=== PATIENT | male | born 1970 | race American Indian/Alaskan Native ===

== ENCOUNTER 2016-12-31 10:10 | Emergency (ER) | payer MEDICARE ==
[2016-12-31 10:32] VITALS: BP 99/65
[2016-12-31 11:45] LABS: Basophils % (Auto) 0.9 % (0.0-1.8); Eosinophils % (Auto) 4.4 % (0.0-4.3); Hemoglobin 9.4 gm/dl (11.8-15.2); Mean Corpuscular HGB Conc 32 % (32-34); Mean Corpuscular Hemoglobin 33 pg (28-32); Mean Corpuscular Volume 103 fl (84-94); Platelet Count 133 K/mm3 (140-440); Red Blood Count 2.81 M/mm3 (3.65-5.03); Red Cell Distribution Width 18.5 % (13.2-15.2); White Blood Count 4.2 K/mm3 (4.5-11.0)
[2016-12-31 12:00] LABS: BUN/Creatinine Ratio 5.66; Calcium 8.5 mg/dL (8.4-10.2); Chloride 92.2 mmol/L (98-107)
--- NOTE | 2017-01-01 21:40 | ED Elopement Review ---
ED Pt Elopement review - Results review Lab results: Laboratory Tests 12/31/16 12/31/16 11:32 11:32 WBC 4.2 L RBC 2.81 L Hgb 9.4 L Hct 29.0 L MCV 103 H MCH 33 H MCHC 32 RDW 18.5 H Plt Count 133 L Lymph % (Auto) 21.2 [place] % (Auto) 11.4 H Eos % (Auto) 4.4 H Baso % (Auto) 0.9 Lymph # 0.9 L [place] # 0.5 Eos # 0.2 Baso # 0.0 Seg Neutrophils % 62.1 Seg Neutrophils # 2.6 Sodium 141 Potassium 5.0 Chloride 92.2 L Carbon Dioxide 25 Anion Gap 29 BUN 85 H Creatinine 15.0 H Estimated GFR 4 BUN/Creatinine Ratio 5.66 Glucose 92 Calcium 8.5 Troponin T 0.155 H* Triglycerides 54 Cholesterol 118 LDL Cholesterol Direct 50 HDL Cholesterol 58 Cholesterol/HDL Ratio 2.03 - Call Back decision Pt Call Back Decision: Call pt to return to ED JOSE MARTIN (CKD, with elevated troponin , a-fib)
== END 2016-12-31 13:17 | disposition left against medical advice (07) ==
LOC: ED 10:10
DX: Z51.81 Encounter for therapeutic drug level monitoring (principal); J44.9 Chronic obstructive pulmonary disease, unspecified; K21.9 Gastro-esophageal reflux disease without esophagitis; I10 Essential (primary) hypertension; Z99.2 Dependence on renal dialysis; Z88.5 Allergy status to narcotic agent; Z88.1 Allergy status to other antibiotic agents; Z88.8 Allergy status to other drugs, medicaments and biological substances; Z91.048 Other nonmedicinal substance allergy status; Z53.21 Procedure and treatment not carried out due to patient leaving prior to being seen by health care provider
CPT/HCPCS: 36415; 80048; 80061; 84484; 85025; 93005; 93010

== ENCOUNTER 2017-06-01 16:39 | Inpatient (IN) | payer MEDICARE ==
[2017-06-01 18:00] LABS: Basophils % (Auto) 0.7 % (0.0-1.8); Eosinophils % (Auto) 3.2 % (0.0-4.3); Hematocrit 20.7 % (35.5-45.6); Hemoglobin 6.7 gm/dl (11.8-15.2); Mean Corpuscular HGB Conc 32 % (32-34); Mean Corpuscular Hemoglobin 30 pg (28-32); Mean Corpuscular Volume 93 fl (84-94); Platelet Count 189 K/mm3 (140-440); Red Blood Count 2.23 M/mm3 (3.65-5.03); White Blood Count 3.6 K/mm3 (4.5-11.0)
[2017-06-01 18:10] LABS: Calcium 8.8 mg/dL (8.4-10.2); Chloride 89.5 mmol/L (98-107); Potassium 3.7 mmol/L (3.6-5.0)
[2017-06-01 18:50] LABS: Red Cell Distribution Width 20.6 % (13.2-15.2)
[2017-06-01] MEDS ORDERED: NACL 0.9% 500 ML 500 ML IV ONE (20:36)
[2017-06-01] MEDS ORDERED: ZOFRAN IV ONE (20:38)
[2017-06-01] MEDS ORDERED: DILAUDID IV ONE (20:38)
--- NOTE | 2017-06-01 21:05 | Emergency Department Report ---
- General Chief complaint: Weakness Stated complaint: SOB/KIDNEY PT Time Seen by Provider: 06/01/17 20:17 Source: patient, old records reviewed Mode of arrival: Ambulatory Limitations: No Limitations - History of Present Illness Initial comments: 47-year-old male with a past medical history end-stage renal disease on dialysis , hypertension, COPD, GERD, and chronic back pain presents to the hospital complaining of dizziness the months and black stool 2 weeks. Patient states that his doctors have been trending his hemoglobin and has been dropping. Patient complains of felt lightheaded and like his parents out with standing. Generalized weakness and fatigue reported. Patient complains of chronic lower back pain and reports a discectomy surgery 10 months ago and neck surgery 1 month ago. Patient performs home hemodialysis 3 times a week but not on any set days. Patient complaining of moderate to severe lower back pain and requesting pain medication. Typically takes Percocet 10 mg at home. Patient is currently on Eliquis with for atrial fibrillation. His dose was recently decreased from 5-2.5 mg about 1 month ago. Solid Waste Manager: Dr. Lorna Barber Previous medical record reviewed: Patient had a EGD performed here November 2013 significant for erosive antral gastritis, erosive duodenitis, and small hiatal hernia. Severity scale (0 -10): 7 - Related Data Home Medications Medication Instructions Recorded Confirmed Last Taken clonazePAM [Clonazepam] 1.5 tab PO BID 11/16/13 06/01/17 02/28/16 21:30 Albuterol Sulfate [Proair Hfa] 1 puff INHALATION PRN PRN 02/28/16 06/01/1702/27 09:30 Calcium Acetate [Phoslo] 7 tab PO TID 02/28/16 06/01/17 02/28/16 09:30 Oxycodone HCl/Acetaminophen 1 each PO Q4HR PRN 02/28/16 06/01/17 02/28/16 21:30 [Percocet 10/325 mg] Ambrisentan [Letairis] 10 mg PO DAILY 06/01/17 06/01/17 Unknown Amiodarone HCl [Amiodarone 100 MG 200 mg PO BID 06/01/17 06/01/17 Unknown TAB] Apixaban [Eliquis] 2.5 mg PO DAILY 06/01/17 06/01/17 Unknown Lubiprostone (Nf) [Amitiza Cap 24 mcg PO DAILY 06/01/17 06/01/17 Unknown (Nf)] Naloxegol Oxalate [Movantik] 25 mg PO DAILY 06/01/17 06/01/17 Unknown Tizanidine HCl [Zanaflex] 2 mg PO TID PRN 06/01/17 06/01/17 Unknown Allergies Allergy/AdvReac Type Severity Reaction Status Date / Time CARMEL Inhibitors Allergy Angioedema Verified 02/29/16 11:21 morphine Allergy Itching Verified 02/29/16 15:28 tetracycline [Tetracycline] Allergy Angioedema Verified 02/29/16 11:21 valsartan [From Diovan] Allergy Angioedema Verified 02/29/16 11:21 PLASTIC TAPE Allergy Rash Uncoded 02/29/16 11:21 ED Review of Systems ROS: Stated complaint: SOB/KIDNEY PT Other details as noted in HPI Comment: All other systems reviewed and negative Other: Constitutional: No fevers chills Eyes: No eye pain visual changes ENT: No ear pain or throat pain Neck: Denies pain Respiratory: Denies cough wheezing shortness of breath Cardiovascular: Denies chest pain, palpitations, syncope GI: Denies abdominal pain, nausea, vomiting, diarrhea Musculoskeletal: as per hpi Skin: Denies rash, lesions, erythema Neurologic: Denies headache, numbness Psychiatric: Denies suicidal ideation, hallucinations ED Past Medical Hx - Past Medical History Hx Hypertension: Yes Hx GERD: Yes Hx Renal Disease: Yes Hx Sickle Cell Disease: No Hx COPD: Yes Hx HIV: No Additional medical history: Patient on Dialysis - Surgical History Additional Surgical History: MRSA chest - surgery to remove infection. Fistula left arm 2011. Ankle surgery. Removal part of stomach for bleeding ulcers. Parathyroidectomy. Neck surgery/discotomy approximately Jun 2017. Back surgery /discotomy approximately Aug 2016 - Social History Smoking Status: Never Smoker Substance Use Type: None - Medications Home Medications: Home Medications Medication Instructions Recorded Confirmed Last Taken Type clonazePAM [Clonazepam] 1.5 tab PO BID 11/16/13 06/01/17 02/28/16 21:30 History Albuterol Sulfate [Proair Hfa] 1 puff INHALATION PRN PRN 02/28/16 06/01/1702/27 09:30 History Calcium Acetate [Phoslo] 7 tab PO TID 02/28/16 06/01/17 02/28/16 09:30 History Oxycodone HCl/Acetaminophen 1 each PO Q4HR PRN 02/28/16 06/01/17 02/28/16 21:30 History [Percocet 10/325 mg] Ambrisentan [Letairis] 10 mg PO DAILY 06/01/17 06/01/17 Unknown History Amiodarone HCl [Amiodarone 100 MG 200 mg PO BID 06/01/17 06/01/17 Unknown History TAB] Apixaban [Eliquis] 2.5 mg PO DAILY 06/01/17 06/01/17 Unknown History Lubiprostone (Nf) [Amitiza Cap 24 mcg PO DAILY 06/01/17 06/01/17 Unknown History (Nf)] Naloxegol Oxalate [Movantik] 25 mg PO DAILY 06/01/17 06/01/17 Unknown History Tizanidine HCl [Zanaflex] 2 mg PO TID PRN 06/01/17 06/01/17 Unknown History ED Physical Exam - General Limitations: No Limitations - Other Other exam information: General: No limitations, patient is alert in no acute distress Head exam: Atraumatic, normocephalic Eyes exam: Normal appearance, pupils equal reactive to light, extraocular movements intact ENT: Moist mucous membrane, normal oropharynx Neck exam: Normal inspection, full range of motion, no meningismus nontender Respiratory exam: Clear to auscultation bilateral, no wheezes, rales, crackles Cardiovascular: Irregular rhythm normal rate Abdomen: Soft, nondistended, and nontender, with normal bowel sounds, no rebound, or guarding Rectal: Guaiac positive brown stool Extremity: Full range of motion normal inspection no deformity Back: Normal Inspection, full range of motion, mild lower back tenderness Neurologic: Alert, oriented x3, cranial nerves intact, no motor or sensory deficit Psychiatric: normal affect, normal mood Skin: Warm, dry, intact ED Course Vital Signs 06/01/17 06/01/17 06/01/17 16:52 19:54 20:00 Temperature 98.3 F Pulse Rate 83 83 Respiratory 16 14 13 Rate Blood Pressure 109/67 Blood Pressure 103/60 [Right] O2 Sat by Pulse 100 95 Oximetry - Reevaluation(s) Reevaluation #1: 06/01/17 21:06 Medications order: Dilaudid 1 mg, Zofran 4 mg, 2 units PRBC. Coags pending - Consultations Consultation #1: 06/01/17 21:00 Consult Nephrology: Dr Hodges will manage dialysis Consult GI: christopher Beckford/graciela Cooley now, prep for egd/colonoscopy tomorrow. Plan to scope on Saturday the ED Medical Decision Making - Lab Data Result diagrams: 06/01/17 17:26 06/01/17 17:26 Lab Results 06/01/17 06/01/17 06/01/17 Range/Units 17:25 17:26 17:26 WBC 3.6 L (4.5-11.0) K/mm3 RBC 2.23 L (3.65-5.03) M/mm3 Hgb 6.7 L (11.8-15.2) gm/dl Hct 20.7 L (35.5-45.6) % MCV 93 (84-94) fl MCH 30 (28-32) pg MCHC 32 (32-34) % RDW 20.6 H (13.2-15.2) % Plt Count 189 (140-440) K/mm3 Lymph % (Auto) 11.7 L (13.4-35.0) % [place] % (Auto) 10.0 H (0.0-7.3) % Eos % (Auto) 3.2 (0.0-4.3) % Baso % (Auto) 0.7 (0.0-1.8) % Lymph # 0.4 L (1.2-5.4) K/mm3 [place] # 0.4 (0.0-0.8) K/mm3 Eos # 0.1 (0.0-0.4) K/mm3 Baso # 0.0 (0.0-0.1) K/mm3 Seg Neutrophils % 74.4 H (40.0-70.0) % Seg Neutrophils # 2.7 (1.8-7.7) K/mm3 Sodium 139 (137-145) mmol/L Potassium 3.7 (3.6-5.0) mmol/L Chloride 89.5 L (98-107) mmol/L Carbon Dioxide 29 (22-30) mmol/L Anion Gap 24 mmol/L BUN 54 H (9-20) mg/dL Creatinine 10.8 H (0.8-1.5) mg/dL Estimated GFR 6 ml/min BUN/Creatinine Ratio 5.00 % Glucose 105 H (75-100) mg/dL Calcium 8.8 (8.4-10.2) mg/dL Troponin T 0.233 H* (0.00-0.029) ng/mL Triglycerides 59 (2-149) mg/dL Cholesterol 115 (50-199) mg/dL LDL Cholesterol Direct 40 L (50-130) mg/dL HDL Cholesterol 64 H (40-59) mg/dL Cholesterol/HDL Ratio 1.79 % Blood Type O POSITIVE Antibody Screen TNR GAMA Antibody Screen Negative Crossmatch See Detail 06/01/17 Range/Units 18:53 WBC (4.5-11.0) K/mm3 RBC (3.65-5.03) M/mm3 Hgb (11.8-15.2) gm/dl Hct (35.5-45.6) % MCV (84-94) fl MCH (28-32) pg MCHC (32-34) % RDW (13.2-15.2) % Plt Count (140-440) K/mm3 Lymph % (Auto) (13.4-35.0) % [place] % (Auto) (0.0-7.3) % Eos % (Auto) (0.0-4.3) % Baso % (Auto) (0.0-1.8) % Lymph # (1.2-5.4) K/mm3 [place] # (0.0-0.8) K/mm3 Eos # (0.0-0.4) K/mm3 Baso # (0.0-0.1) K/mm3 Seg Neutrophils % (40.0-70.0) % Seg Neutrophils # (1.8-7.7) K/mm3 Sodium (137-145) mmol/L Potassium (3.6-5.0) mmol/L Chloride (98-107) mmol/L Carbon Dioxide (22-30) mmol/L Anion Gap mmol/L BUN (9-20) mg/dL Creatinine (0.8-1.5) mg/dL Estimated GFR ml/min BUN/Creatinine Ratio % Glucose (75-100) mg/dL Calcium (8.4-10.2) mg/dL Troponin T 0.227 H* (0.00-0.029) ng/mL Triglycerides (2-149) mg/dL Cholesterol (50-199) mg/dL LDL Cholesterol Direct (50-130) mg/dL HDL Cholesterol (40-59) mg/dL Cholesterol/HDL Ratio % Blood Type Antibody Screen GAMA Antibody Screen Crossmatch - EKG Data -: EKG Interpreted by Me (atrial fibrillation rate 81 low voltage QRS septal infarct) - EKG Data When compared to previous EKG there are: no significant change (compared 2016) - Medical Decision Making Patient's troponin is slightly elevated but fairly unchanged on repeat blood draw. Elevation likely secondary to chronic renal and poor renal clearance. Nephrology and GI have been consult. Blood initiated. - Differential Diagnosis PUD, diverticulosis, anemia in renal disease, cancer, coagulopathy Critical Care Time: No Critical care attestation.: If time is entered above; I have spent that time in minutes in the direct care of this critically ill patient, excluding procedure time. ED Disposition Clinical Impression: Symptomatic anemia, ESRD on hemodialysis, Guaiac positive stools, Chronic back pain, Atrial fibrillation, Anticoagulant long-term use Disposition: OP ADMIT IP TO THIS HOSP Is pt being admited?: Yes Condition: Stable Time of Disposition: 21:00 (Dr Webb/hosp)
[2017-06-01 21:15] LABS: INR 1.12 (0.87-1.13)
[2017-06-01 21:16] LABS: Partial Thromboplastin Time 34.8 Sec. (24.2-36.6)
--- NOTE | 2017-06-01 22:17 | History and Physical Report ---
History of Present Illness Date of examination: 06/01/17 History of present illness: 47-year-old man with a history of end-stage renal disease on dialysis, Pulmonary arterial hypertension, A. fib comes emergency room with complaints of lethargy 1 month. Patient states that his baseline hemoglobin is 11.5 and over the last 1 month it has been steadily decreasing. He did lab work and this morning the results showed his hemoglobin was 8.3. Also complaining of dark stool 1 month, shortness breath, dyspnea and exertion denies any NSAIDs Past surgical history: End-stage renal disease on dialysis, pulmonary arterial hypertension, atrial fibrillation PAST SURGICAL HISTORY: Neck and back surgery, parathyroidectomy, ankle surgery SOCIAL HISTORY: Denies alcohol, tobacco, drugs FAMILY HISTORY: Hypertension Medications and Allergies Allergies Allergy/AdvReac Type Severity Reaction Status Date / Time CARMEL Inhibitors Allergy Angioedema Verified 02/29/16 11:21 morphine Allergy Itching Verified 02/29/16 15:28 tetracycline [Tetracycline] Allergy Angioedema Verified 02/29/16 11:21 valsartan [From Diovan] Allergy Angioedema Verified 02/29/16 11:21 PLASTIC TAPE Allergy Rash Uncoded 02/29/16 11:21 Home Medications Medication Instructions Recorded Confirmed Last Taken Type clonazePAM [Clonazepam] 1.5 tab PO BID 11/16/13 06/02/17 06/01/17 09:00 History Albuterol Sulfate [Proair Hfa] 1 puff INHALATION PRN PRN 02/28/16 06/02/1706/01 09:00 History 1 puff Calcium Acetate [Phoslo] 7 tab PO TID 02/28/16 06/02/17 06/01/17 09:00 History 667 mg Oxycodone HCl/Acetaminophen 1 each PO Q4HR PRN 02/28/16 06/02/17 06/01/17 09:00 History [Percocet 10/325 mg] 1 tab Ambrisentan [Letairis] 10 mg PO DAILY 06/01/17 06/02/17 06/01/17 09:00 History 10 mg Amiodarone HCl [Amiodarone 100 MG 200 mg PO BID 06/01/17 06/02/17 06/01/17 09: 00 History TAB] 200 mg Apixaban [Eliquis] 2.5 mg PO DAILY 06/01/17 06/02/17 06/01/17 09:00 History 2.5 Lubiprostone (Nf) [Amitiza Cap 24 mcg PO DAILY 06/01/17 06/02/17 06/01/17 09:00 History (Nf)] 24 mcg Naloxegol Oxalate [Movantik] 25 mg PO DAILY 06/01/17 06/02/17 06/01/17 09:00 History 12.5 Tizanidine HCl [Zanaflex] 2 mg PO TID PRN 06/01/17 06/02/17 06/01/17 09:00 History 2 mg Exam - Physical Exam Narrative exam: Gen. appearance: Patient lying in bed, no apparent distress HEENT: Normocephalic, atraumatic, pupils equally round and reactive to light, extraocular movement intact, and no sclericterus,. No JVD or thyromegaly or nodule,neck supple, no carotid bruit ,mucous membranes moist, no exudate or erythema Heart: S1, S2, regular rate and rhythm Lungs: Clear to auscultation bilaterally, breathing comfortable Abdomen: Positive bowel sounds, tender left lower quadrant, nondistended, no organomegaly Extremity: No edema, cyanosis, clubbing Skin: No rash, nodules, warm, dry Neuro: Oriented 3, cranial nerves II-12 intact, speech is fluent, motor and sensory intact - Constitutional Vitals: Temp Pulse Resp BP Pulse Ox 98.6 F 77 13 105/68 96 06/01/17 22:15 06/01/17 22:15 06/01/17 22:15 06/01/17 22:15 06/01/17 22:15 Results - Labs CBC & Chem 7: 06/02/17 04:33 06/02/17 04:33 Labs: Abnormal lab results 06/01/17 06/01/17 06/01/17 Range/Units 17:25 17:26 17:26 WBC 3.6 L (4.5-11.0) K/mm3 RBC 2.23 L (3.65-5.03) M/mm3 Hgb 6.7 L (11.8-15.2) gm/dl Hct 20.7 L (35.5-45.6) % RDW 20.6 H (13.2-15.2) % Lymph % (Auto) 11.7 L (13.4-35.0) % [place] % (Auto) 10.0 H (0.0-7.3) % Lymph # 0.4 L (1.2-5.4) K/mm3 Seg Neutrophils % 74.4 H (40.0-70.0) % PT (12.2-14.9) Sec. Chloride 89.5 L (98-107) mmol/L BUN 54 H (9-20) mg/dL Creatinine 10.8 H (0.8-1.5) mg/dL Glucose 105 H (75-100) mg/dL Troponin T 0.233 H* (0.00-0.029) ng/mL LDL Cholesterol Direct 40 L (50-130) mg/dL HDL Cholesterol 64 H (40-59) mg/dL Crossmatch See Detail 06/01/17 06/01/17 Range/Units 18:53 20:47 WBC (4.5-11.0) K/mm3 RBC (3.65-5.03) M/mm3 Hgb (11.8-15.2) gm/dl Hct (35.5-45.6) % RDW (13.2-15.2) % Lymph % (Auto) (13.4-35.0) % [place] % (Auto) (0.0-7.3) % Lymph # (1.2-5.4) K/mm3 Seg Neutrophils % (40.0-70.0) % PT 15.0 H (12.2-14.9) Sec. Chloride (98-107) mmol/L BUN (9-20) mg/dL Creatinine (0.8-1.5) mg/dL Glucose (75-100) mg/dL Troponin T 0.227 H* (0.00-0.029) ng/mL LDL Cholesterol Direct (50-130) mg/dL HDL Cholesterol (40-59) mg/dL Crossmatch - Imaging and Cardiology EKG: image reviewed Assessment and Plan Assessment GI bleed, rule out gastric ulcer versus anticoagulation versus other Blood loss anemia Abdominal pain History of fibrillation on anticoagulation End-stage renal disease on dialysis Plan Admit to medicine Start Protonix, consult GI, transfuse packed red blood cells, hold eliquis Obtain CAT scan of the abdomen and pelvis Consult renal for dialysis Continue appropriate outpatient medication, start DVT prophylaxis Addendum CAT scan abdomen and pelvis shows inflammation in the sigmoid colon Start IV Levaquin and Flagyl, IV dilaudid DVT prophylaxis with SCD
[2017-06-01] MEDS ORDERED: TYLENOL PO PRN (22:49)
--- NOTE | 2017-06-01 22:55 | Cat Scan Report ---
FINAL REPORT EXAM: CT ABDOMEN PELVIS WO CON HISTORY: abd pain/ black stool TECHNIQUE: CT images obtained through the Abdomen and Pelvis without contrast. Transaxial,coronal and sagittal reformats are provided. PRIORS: None. FINDINGS: Imaged intrathoracic contents are remarkable for coronary artery disease and ground-glass mosaic attenuation in the lower lungs. Polycystic kidney disease. No hydroureteronephrosis. No stones are seen within the urinary bladder. Partially imaged penile device. Cholelithiasis without pericholecystic inflammatory findings. The liver, pancreas, spleen, and adrenal glands demonstrate an unremarkable noncontrast appearance. Hollow enteric organs are normal in course and caliber. Suggested mild wall thickening of the sigmoid colon. Trace free fluid in the pelvis. Appendix is within normal limits. No intra-abdominal free air/fluid or lymphadenopathy. Aorta is normal in course and caliber with densely scattered atherosclerosis. Superficial soft tissues are unremarkable. No acute or aggressive appearing skeletal findings. IMPRESSION: Suggested mild sigmoid colonic wall thickening may be infectious, inflammatory or neoplastic in etiology. Gastroenterology follow-up is suggested. Cholelithiasis without pericholecystic inflammatory findings. Polycystic kidney disease. Consider routine screening CT head angiogram for associated aneurysm if not previously performed. Coronary and extensive peripheral arterial disease. Mosaic attenuation of the lower lungs may be secondary to subsegmental atelectasis, asthma/small airways disease or hypersensitivity pneumonitis.
[2017-06-01] MEDS: FLAGYL PO SCH (23:07)
[2017-06-02] MEDS: ZOFRAN IV PRN ×2 (05:07→12:47)
[2017-06-02 05:31] LABS: Basophils % (Auto) 0.7 % (0.0-1.8); Eosinophils % (Auto) 2.5 % (0.0-4.3); Hematocrit 24.1 % (35.5-45.6); Mean Corpuscular HGB Conc 33 % (32-34); Mean Corpuscular Hemoglobin 30 pg (28-32); Mean Corpuscular Volume 91 fl (84-94); Platelet Count 181 K/mm3 (140-440); Red Blood Count 2.65 M/mm3 (3.65-5.03); Red Cell Distribution Width 18.8 % (13.2-15.2); White Blood Count 3.9 K/mm3 (4.5-11.0)
[2017-06-02 05:46] LABS: BUN/Creatinine Ratio 5.04; Potassium 3.6 mmol/L (3.6-5.0)
[2017-06-02 05:48] LABS: Creatine Kinase MB 3.3 ng/mL (0.0-4.0)
[2017-06-02] MEDS: FLAGYL PO SCH ×3 (06:54→22:31)
--- NOTE | 2017-06-02 07:19 | Consultation ---
History of Present Illness - Reason for Consult Consult date: 06/02/17 end stage renal disease - History of Present Illness Patient is a 47-year-old AAM with history significant for ESRD on home hemodialysis followed by , Pulmonary arterial hypertension and A. fib came to the ER with complaints of weakness for the past 3 weeks. Patient states that his baseline hemoglobin is around 11.5 and over the past few weeks it has been steadily decreasing. Patient came to the hospital since the symptoms have been progressive. Associated symptoms include orthostatic dizziness, fatigue and dark stool. Patient was last dialyzed yesterday. Past History Past Medical History: anemia, other (A.fib, Pulmonary Hypertension) Medications and Allergies Allergies Allergy/AdvReac Type Severity Reaction Status Date / Time CARMEL Inhibitors Allergy Angioedema Verified 02/29/16 11:21 morphine Allergy Itching Verified 02/29/16 15:28 tetracycline [Tetracycline] Allergy Angioedema Verified 02/29/16 11:21 valsartan [From Diovan] Allergy Angioedema Verified 02/29/16 11:21 PLASTIC TAPE Allergy Rash Uncoded 02/29/16 11:21 Home Medications Medication Instructions Recorded Confirmed Last Taken Type clonazePAM [Clonazepam] 1.5 tab PO BID 11/16/13 06/02/17 06/01/17 09:00 History Albuterol Sulfate [Proair Hfa] 1 puff INHALATION PRN PRN 02/28/16 06/02/1706/01 09:00 History 1 puff Calcium Acetate [Phoslo] 7 tab PO TID 02/28/16 06/02/17 06/01/17 09:00 History 667 mg Oxycodone HCl/Acetaminophen 1 each PO Q4HR PRN 02/28/16 06/02/17 06/01/17 09:00 History [Percocet 10/325 mg] 1 tab Ambrisentan [Letairis] 10 mg PO DAILY 06/01/17 06/02/17 06/01/17 09:00 History 10 mg Amiodarone HCl [Amiodarone 100 MG 200 mg PO BID 06/01/17 06/02/17 06/01/17 09: 00 History TAB] 200 mg Apixaban [Eliquis] 2.5 mg PO DAILY 06/01/17 06/02/17 06/01/17 09:00 History 2.5 Lubiprostone (Nf) [Amitiza Cap 24 mcg PO DAILY 06/01/17 06/02/17 06/01/17 09:00 History (Nf)] 24 mcg Naloxegol Oxalate [Movantik] 25 mg PO DAILY 06/01/17 06/02/17 06/01/17 09:00 History 12.5 Tizanidine HCl [Zanaflex] 2 mg PO TID PRN 06/01/17 06/02/17 06/01/17 09:00 History 2 mg Active Meds: Active Medications Acetaminophen (Tylenol) 650 mg PO Q4H PRN PRN Reason: Pain MILD(1-3)/Fever >100.5/KNAPP Last Admin: 06/02/17 06:58 Dose: 650 mg Levofloxacin/Dextrose (Levaquin 500mg/100ml) 500 mg in 100 mls @ 100 mls/hr IV ONCE ONE PRN Reason: Protocol Stop: 06/02/17 10:59 Levofloxacin/Dextrose (Levaquin 250mg/50ml) 250 mg in 50 mls @ 50 mls/hr IV Q48HR [facility] PRN Reason: Protocol Metronidazole (Flagyl) 500 mg PO Q8HR [facility] Last Admin: 06/02/17 06:54 Dose: 500 mg Ondansetron HCl (Zofran) 4 mg IV Q8H PRN PRN Reason: N/V unrelieved by Linda Last Admin: 06/02/17 05:07 Dose: 4 mg Review of Systems Constitutional: fatigue, weakness, malaise, lethargy, chronic pain, no weight loss, no weight gain, no fever, no chills, no poor appetite Ears, nose, mouth and throat: no sinus pain, no epistaxis Cardiovascular: lightheadedness, shortness of breath, dyspnea on exertion, decreased exercise tolerance, no chest pain, no orthopnea, no edema, no syncope Respiratory: shortness of breath, dyspnea on exertion, no cough, no hemoptysis, no pain on inspiration Gastrointestinal: melena, no abdominal pain, no nausea, no vomiting, no diarrhea , no BRBPR Genitourinary Male: no dysuria, no hematuria, no flank pain Rectal: no bleeding Musculoskeletal: neck pain, low back pain Integumentary: no rash, no wounds Neurological: weakness, no paralysis, no change in speech, no change in mentation, no confusion, no paralysis Psychiatric: no disorientation Endocrine: no weight change Hematologic/Lymphatic: no lymphedema Exam - Vital Signs Vital signs: Vital Signs Temp Pulse Resp BP Pulse Ox 98.3 F 83 16 109/67 100 06/01/17 16:52 06/01/17 16:52 06/01/17 16:52 06/01/17 16:52 06/01/17 16:52 - General Appearance General appearance: well-developed, well-nourished, appears stated age, other ( no distress) EENT: ATNC, PERRL, mucous membranes moist, hearing intact, vision intact Neck: Present: neck supple Respiratory: Clear to Ascultation Heart: irregular, S1S2, no murmurs Gastrointestinal: Present: normoactive bowel sounds. Absent: tenderness Integumentary: no rash Neurologic: no focal deficit, no asterixis, alert and oriented x3, CN 3-12 intact Musculoskeletal: Present: other (no edema, left arm AVF) Psychiatric: mood/affect appropriate, cooperative Results - Lab Results 06/02/17 04:33 06/02/17 04:33 Most recent lab results Calcium 8.0 mg/dL (8.4-10.2) L 06/02/17 04:33 Assessment and Plan - Patient Problems (1) ESRD on hemodialysis Current Visit: Yes Status: Chronic Plan to address problem: Patient was last dialyzed yesterday. Resume hemodialysis tomorrow. (2) Symptomatic anemia Current Visit: Yes Status: Acute Plan to address problem: S/p PRBC, H / H is better. Epogen on dialysis days. (3) Atrial fibrillation Current Visit: Yes Status: Chronic Qualifiers: Atrial fibrillation type: A (4) Guaiac positive stools Current Visit: Yes Status: Acute Plan to address problem: GI consulted. (5) Chronic back pain Current Visit: Yes Status: Chronic Qualifiers: Back pain location: B Back pain laterality: B Sciatica presence: S Sciatica laterality: S
[2017-06-02] MEDS ORDERED: NACL 0.9% 100 ML IV PRN (08:30)
[2017-06-02] MEDS ORDERED: LEVAQUIN 750MG/150ML 750 MG/150 ML BAG IV SCH (10:00)
[2017-06-02] MEDS ORDERED: LEVAQUIN 500MG/100ML 500 MG/100 ML BAG IV ONE (10:00)
[2017-06-02] MEDS ORDERED: NON-FORMULARY (Oxycodone Hcl/Acetaminophen [Percocet 10/325 Mg] 1 EACH) PO PRN (11:09)
--- NOTE | 2017-06-02 11:15 | Progress Note ---
Assessment and Plan Assessment and plan: 47-year-old man with a history of end-stage renal disease on dialysis, Pulmonary arterial hypertension, A. fib on eliquis, last took it on 06/01 comes emergency room with complaints of lethargy 1 month. Patient states that his baseline hemoglobin is 11.5 and over the last 1 month it has been steadily decreasing. he is having melena on and off, c/o weakness and easy fatiguability , he does have abdominal pain but he states that that is chronic and not acute. Acute GI bleed, Continue PPI GI input appreciated, patient's plan for EGD/colonoscopy tomorrow, hold eliquis Acute blood loss anemia Has received transfusion appropriate rise in hemoglobin ? sigmoid colitis He has mild thickening of the sigmoid colon, both clinically the picture does not fit with infectious etiology, Continue empiric antibiotics for now, colonoscopy should provide more information Atrial fibrillation Rate controlled at the time, continue his cardiac meds, hold eliquis cc acute blood loss End-stage renal disease Hemodialysis per nephrology Non-STEMI type II Upon reviewing of his labs, his troponin is chronically elevated, therefore most likely non-STEMI type II, cardiology consults placed for further evaluation Denies chest pain Given his anemia and this is most likely demand ischemia Blood loss anemia Abdominal pain History of fibrillation on anticoagulation End-stage renal disease on dialysis DVT prophylaxis SCDs History Interval history: denies abdominal pain, weakness is improved today Hospitalist Physical - Physical exam Narrative exam: General: Patient appears well in no distress HEENT: MMM, EOMI cardiac: S1-S2 heard lungs: clear to auscultation, abdomen: soft, nontender, nondistended bowel sounds positive extremities: no edema clubbing or cyanosis Skin: no rash or lesion Neuro: no focal deficit Psych: appropriate behavior and mood, cognition intact - Constitutional Vitals: Temp Pulse Resp BP Pulse Ox 99 F 78 18 108/62 98 06/02/17 08:00 06/02/17 08:00 06/02/17 08:00 06/02/17 08:00 06/02/17 08:00 Results - Labs CBC & Chem 7: 06/02/17 04:33 06/02/17 04:33 Labs: Laboratory Last Values WBC 3.9 K/mm3 (4.5-11.0) L 06/02/17 04:33 RBC 2.65 M/mm3 (3.65-5.03) L 06/02/17 04:33 Hgb 8.0 gm/dl (11.8-15.2) L 06/02/17 04:33 Hct 24.1 % (35.5-45.6) L 06/02/17 04:33 MCV 91 fl (84-94) 06/02/17 04:33 MCH 30 pg (28-32) 06/02/17 04:33 MCHC 33 % (32-34) 06/02/17 04:33 RDW 18.8 % (13.2-15.2) H 06/02/17 04:33 Plt Count 181 K/mm3 (140-440) 06/02/17 04:33 Lymph % (Auto) 14.8 % (13.4-35.0) 06/02/17 04:33 [place] % (Auto) 9.5 % (0.0-7.3) H 06/02/17 04:33 Eos % (Auto) 2.5 % (0.0-4.3) 06/02/17 04:33 Baso % (Auto) 0.7 % (0.0-1.8) 06/02/17 04:33 Lymph # 0.6 K/mm3 (1.2-5.4) L 06/02/17 04:33 [place] # 0.4 K/mm3 (0.0-0.8) 06/02/17 04:33 Eos # 0.1 K/mm3 (0.0-0.4) 06/02/17 04:33 Baso # 0.0 K/mm3 (0.0-0.1) 06/02/17 04:33 Seg Neutrophils % 72.5 % (40.0-70.0) H 06/02/17 04:33 Seg Neutrophils # 2.9 K/mm3 (1.8-7.7) 06/02/17 04:33 PT 15.0 Sec. (12.2-14.9) H 06/01/17 20:47 INR 1.12 (0.87-1.13) 06/01/17 20:47 APTT 34.8 Sec. (24.2-36.6) 06/01/17 20:47 Sodium 133 mmol/L (137-145) L 06/02/17 04:33 Potassium 3.6 mmol/L (3.6-5.0) 06/02/17 04:33 Chloride 97.0 mmol/L (98-107) L 06/02/17 04:33 Carbon Dioxide 28 mmol/L (22-30) 06/02/17 04:33 Anion Gap 12 mmol/L 06/02/17 04:33 BUN 60 mg/dL (9-20) H 06/02/17 04:33 Creatinine 11.9 mg/dL (0.8-1.5) H 06/02/17 04:33 Estimated GFR 6 ml/min 06/02/17 04:33 BUN/Creatinine Ratio 5.04 % 06/02/17 04:33 Glucose 98 mg/dL (75-100) 06/02/17 04:33 Calcium 8.0 mg/dL (8.4-10.2) L 06/02/17 04:33 Total Creatine Kinase 262 units/L (55-170) H 06/02/17 04:33 CK-MB (CK-2) 3.3 ng/mL (0.0-4.0) 06/02/17 04:33 CK-MB (CK-2) Rel Index 1.2 (0-4) 06/02/17 04:33 Troponin T 0.214 ng/mL (0.00-0.029) H* 06/02/17 04:33 Triglycerides 59 mg/dL (2-149) 06/01/17 17:26 Cholesterol 115 mg/dL (50-199) 06/01/17 17:26 LDL Cholesterol Direct 40 mg/dL (50-130) L 06/01/17 17:26 HDL Cholesterol 64 mg/dL (40-59) H 06/01/17 17:26 Cholesterol/HDL Ratio 1.79 % 06/01/17 17:26 Blood Type O POSITIVE 06/01/17 17:25 Antibody Screen TNR 06/01/17 17:25 GAMA Antibody Screen Negative 06/01/17 17:25 Crossmatch See Detail 06/01/17 17:25
[2017-06-02] MEDS ORDERED: ZANAFLEX PO PRN (11:38)
[2017-06-02] MEDS: CORDARONE PO SCH ×2 (12:03→22:31)
--- NOTE | 2017-06-02 12:04 | Event Note ---
Full cardiac consult will be dictated after reviewing [facility] records. ESRD; 15 years.Home HDx4 a week Anemia: Sleep apnea on CPAP AF on Eliquis 2.5 mg BID and Amiodarone. S/P cardioversion 3 month ago with KUSUM. Pulmonary arterial hypertension on Ambrisentan.Followed by Bertrand Oconnell M.D. [facility]. .
--- NOTE | 2017-06-02 12:26 | Gastroenterology Consultation ---
History of Present Illness - Reason for Consult Consult date: 06/02/17 Anemia Requesting physician: MARYAN SINGH - History of Present Illness The patient is a 47 yo male with a hx of symptomatic anemia. He does have a hx of a gastric bleeding ulcer requiring surgery "20 years ago" but in general he has no GI bleeding. He has had an EGD about 2-3 years ago (negative by Femi) and a colonoscopy earlier this year (unk MD at [place], for unk reason) that were negative. Sometimes his BMs are dark/sticky in the last 3 months, but in general they are brown. He has no N/V/abdominal pain. He has had some weight loss this year (about 20-30 pounds) per a consult note from Dr Kahn in the office earlier this year. He denies CP and he has chronic SOB. He is on Eliquis for a year but no NSAIDs. He denies a family hx of GI cancer. A CT scan in the ER showed mild sigmoid thickening, and a mass was not excluded, but it was not definite, and there was no LN or liver mets. He has been on HD for 14 years, and home HD for 4 years, and he says his hgb is usually about 11-14, with no need for transfusions. His Renal MD gave him epo x 1 a few weeks ago, and it did not improve the anemia. Past History Past Medical History: atrial fib, anemia, ESRD, hyperlipidemia, other (A.fib, Pulmonary Hypertension) Past Surgical History: bowel surgery (Gastric oversew of an ulcer (per patient)) , Other (cervical (neck) surgery 2016; AV Graft surgery) Social history: lives with family. denies: alcohol abuse, prescription drug abuse Family history: no significant family history Medications and Allergies Allergies Allergy/AdvReac Type Severity Reaction Status Date / Time CARMEL Inhibitors Allergy Angioedema Verified 02/29/16 11:21 morphine Allergy Itching Verified 02/29/16 15:28 tetracycline [Tetracycline] Allergy Angioedema Verified 02/29/16 11:21 valsartan [From Diovan] Allergy Angioedema Verified 02/29/16 11:21 PLASTIC TAPE Allergy Rash Uncoded 02/29/16 11:21 Home Medications Medication Instructions Recorded Confirmed Last Taken Type clonazePAM [Clonazepam] 1.5 tab PO BID 11/16/13 06/02/17 06/01/17 09:00 History Albuterol Sulfate [Proair Hfa] 1 puff INHALATION PRN PRN 02/28/16 06/02/1706/01 09:00 History 1 puff Calcium Acetate [Phoslo] 7 tab PO TID 02/28/16 06/02/17 06/01/17 09:00 History 667 mg Oxycodone HCl/Acetaminophen 1 each PO Q4HR PRN 02/28/16 06/02/17 06/01/17 09:00 History [Percocet 10/325 mg] 1 tab Ambrisentan [Letairis] 10 mg PO DAILY 06/01/17 06/02/17 06/01/17 09:00 History 10 mg Amiodarone HCl [Amiodarone 100 MG 200 mg PO BID 06/01/17 06/02/17 06/01/17 09: 00 History TAB] 200 mg Apixaban [Eliquis] 2.5 mg PO DAILY 06/01/17 06/02/17 06/01/17 09:00 History 2.5 Lubiprostone (Nf) [Amitiza Cap 24 mcg PO DAILY 06/01/17 06/02/17 06/01/17 09:00 History (Nf)] 24 mcg Naloxegol Oxalate [Movantik] 25 mg PO DAILY 06/01/17 06/02/17 06/01/17 09:00 History 12.5 Tizanidine HCl [Zanaflex] 2 mg PO TID PRN 06/01/17 06/02/17 06/01/17 09:00 History 2 mg Active Meds: Active Medications Acetaminophen (Tylenol) 650 mg PO Q4H PRN PRN Reason: Pain MILD(1-3)/Fever >100.5/KNAPP Last Admin: 06/02/17 06:58 Dose: 650 mg Amiodarone HCl (Cordarone) 200 mg PO BID [facility] Last Admin: 06/02/17 12:03 Dose: 200 mg Calcium Acetate (Phoslo) 2,668 mg PO TID JEREMIAH Clonazepam (Klonopin) 3 mg PO BID [facility] Last Admin: 06/02/17 12:02 Dose: 3 mg Levofloxacin/Dextrose (Levaquin 250mg/50ml) 250 mg in 50 mls @ 50 mls/hr IV Q48HR JEREMIAH PRN Reason: Protocol Sodium Chloride (Nacl 0.9%) 100 mls @ 999 mls/hr IV JUHI PRN PRN Reason: Hypotension Metronidazole (Flagyl) 500 mg PO Q8HR [facility] Last Admin: 06/02/17 06:54 Dose: 500 mg Miscellaneous Medication (Ambrisentan [Letairis]) 10 mg PO DAILY [facility] Miscellaneous Medication (Lubiprostone (Nf)) 24 mcg PO DAILY [facility] Miscellaneous Medication (Naloxegol Oxalate [Movantik]) 25 mg PO DAILY [facility] Miscellaneous Medication (Oxycodone Hcl/Acetaminophen [Percocet 10/325 Mg]) 1 each PO Q4H PRN PRN Reason: Pain Ondansetron HCl (Zofran) 4 mg IV Q8H PRN PRN Reason: N/V unrelieved by Linda Last Admin: 06/02/17 05:07 Dose: 4 mg Polyethylene Glycol/Electrolytes (Golytely) 4,000 ml PO ONCE ONE Stop: 06/02/17 17:01 Tizanidine HCl (Zanaflex) 2 mg PO TID PRN PRN Reason: Muscle Spasm Review of Systems - Review of Systems All systems: negative (as noted in the HPI.) Exam - Constitutional Vital Signs: Temp Pulse Resp BP Pulse Ox 99 F 78 18 108/62 97 06/02/17 08:00 06/02/17 08:00 06/02/17 08:00 06/02/17 08:00 06/02/17 10:00 General appearance: no acute distress - EENT Eyes: PERRL, EOM intact ENT: hearing intact, clear oral mucosa, no thrush - Neck Neck: supple, normal ROM - Respiratory Respiratory effort: normal Respiratory: bilateral: CTA - Cardiovascular Rhythm: irregularly irregular Heart Sounds: Present: S1 & S2 Extremities: no ischemia, No edema, abnormal (AV Graft (good thrill)) - Gastrointestinal General gastrointestinal: Present: soft, non-tender, non-distended - Integumentary Integumentary: Present: clear, warm, dry - Neurologic Neurological: alert and oriented x3 - Labs CBC & Chem 7: 06/02/17 04:33 06/02/17 04:33 Lab Results: Laboratory Results - last 24 hr 07/06/02/17 06/02/17 04:33 04:33 04:33 WBC 3.9 L RBC 2.65 L Hgb 8.0 L Hct 24.1 L MCV 91 MCH 30 MCHC 33 RDW 18.8 H Plt Count 181 Lymph % (Auto) 14.8 [place] % (Auto) 9.5 H Eos % (Auto) 2.5 Baso % (Auto) 0.7 Lymph # 0.6 L [place] # 0.4 Eos # 0.1 Baso # 0.0 Seg Neutrophils % 72.5 H Seg Neutrophils # 2.9 Sodium 133 L Potassium 3.6 Chloride 97.0 L Carbon Dioxide 28 Anion Gap 12 BUN 60 H Creatinine 11.9 H Estimated GFR 6 BUN/Creatinine Ratio 5.04 Glucose 98 Calcium 8.0 L Total Creatine Kinase 262 H CK-MB (CK-2) 3.3 CK-MB (CK-2) Rel Index 1.2 Troponin T 0.214 H* Assessment and Plan - Patient Problems (1) Acute blood loss anemia Current Visit: Yes Status: Acute Plan to address problem: - Hx of PUD with dark stools (intermittent) but also abnormal CT with ?sigmoid thickening: will get EGD/Colon - Continue to transfuse as needed - Hold Eliquis (last took 06/01) - OK to continue all other medications - If bleeds acutely would get a bleeding scan to localize upper v lower
[2017-06-02] MEDS: PERCOCET 5/325 PO PRN ×3 (12:48→23:45)
[2017-06-02] MEDS: PHOSLO PO SCH ×2 (13:30→20:22)
[2017-06-02] MEDS ORDERED: GOLYTELY PO ONE (17:00)
[2017-06-02] MEDS: ROXICODONE PO PRN ×2 (19:21→23:45)
[2017-06-03] MEDS: ZOFRAN IV PRN ×2 (05:34→20:59)
[2017-06-03 06:22] LABS: Albumin 3.3 g/dL (3.9-5); BUN/Creatinine Ratio 4.85; Bilirubin,Total 0.4 mg/dL (0.1-1.2); Calcium 7.6 mg/dL (8.4-10.2); Chloride 90.6 mmol/L (98-107); Total Protein 6.7 g/dL (6.3-8.2)
[2017-06-03] MEDS: FLAGYL PO SCH ×3 (06:23→22:20)
[2017-06-03] MEDS: DILAUDID IV PRN ×4 (06:32→22:21)
[2017-06-03 06:45] LABS: Potassium 4.7 mmol/L (3.6-5.0)
[2017-06-03 07:14] LABS: Basophils % (Auto) 0.7 % (0.0-1.8); Eosinophils % (Auto) 4.2 % (0.0-4.3); Hematocrit 22.8 % (35.5-45.6); Hemoglobin 7.5 gm/dl (11.8-15.2); Mean Corpuscular HGB Conc 33 % (32-34); Mean Corpuscular Hemoglobin 30 pg (28-32); Mean Corpuscular Volume 90 fl (84-94); Platelet Count 176 K/mm3 (140-440); Red Blood Count 2.52 M/mm3 (3.65-5.03); White Blood Count 3.3 K/mm3 (4.5-11.0)
--- NOTE | 2017-06-03 07:54 | Progress Note ---
Assessment and Plan - Patient Problems (1) ESRD on hemodialysis Current Visit: Yes Status: Chronic Plan to address problem: Patient was last dialyzed 2 days ago. Hemodialysis today. (2) Symptomatic anemia Current Visit: Yes Status: Acute Plan to address problem: S/p PRBC, H / H is better. Epogen on dialysis days. (3) Atrial fibrillation Current Visit: Yes Status: Chronic Qualifiers: Atrial fibrillation type: A (4) Guaiac positive stools Current Visit: Yes Status: Acute Plan to address problem: GI consulted. (5) Chronic back pain Current Visit: Yes Status: Chronic Qualifiers: Back pain location: B Back pain laterality: B Sciatica presence: S Sciatica laterality: S Subjective Date of service: 06/03/17 Interval history: No new complaint. Objective - Vital Signs Vital signs: Vital Signs - 12hr 06/02/17 21:30 Pulse Rate [ 61 Right] Respiratory 18 Rate - General Appearance General appearance: well-developed, well-nourished, appears stated age, other ( no distress) EENT: ATNC, PERRL Neck: supple Respiratory: Present: Clear to Ascultation Cardiology: irregular, S1S2, no murmurs Gastrointestinal: normoactive bowel sounds, no tenderness, no distended Integumentary: no rash Neurologic: no focal deficit, no asterixis, alert and oriented x3 Musculoskeletal: other (no edema, left arm AVF) Psychiatric: mood/affect appropriate, cooperative - Lab 06/03/17 06:37 06/03/17 04:35 Most recent lab results Calcium 7.6 mg/dL (8.4-10.2) L 06/03/17 04:35
[2017-06-03] MEDS: PHOSLO PO SCH ×4 (08:01→20:30)
--- NOTE | 2017-06-03 08:44 | Admit Criteria Form ---
Admission Criteria Documentation: GASTROINTESTINAL BLEEDING, UPPER Clinical Indications for Admission to Inpatient Care ( Place 'X' for any and all applicable criteria): Admission is indicated for ANY ONE of the following(1)(2)(3)(4)(5)(6): [ ]I. Active bleeding (eg, fresh voluminous blood in emesis or nasogastric aspirate) [ ]II. Associated conditions requiring hospitalization (eg, perforation, obstruction from ulcer) [X]III. Inpatient admission required rather than observation care (Also use Gastrointestinal Bleeding, Upper: Observation Care as appropriate) because of ANY ONE of the following: [ ]a) Hemodynamic instability that is severe or persistent [ ]b) Anemia requiring inpatient admission as indicated by ALL of the following: [ ]1) Presence of significant clinical finding indicated by ANY ONE of the following: [ ]A. Tachycardia for age [ ]B. Orthostatic vital sign changes [ ]C. Cognitive impairment [ ]D. Heart failure [ ]E. Chest pain [ ]F. Exertional dyspnea [ ]G. Other findings suggesting inadequate perfusion (eg, peripheral or myocardial ischemia, end organ dysfunction) [ ]2) Initial (eg, emergency department, observation care) treatment with transfusion or volume replacement is judged inappropriate (due to severity of the finding) or has been ineffective [ ]c) Severe pain requiring acute inpatient management [ ]d) High-risk low platelet count [ ]e) IV fluid to replace significant ongoing losses (greater than 3 L/m2 per day) [ ]f) Immediate inpatient surgery [X]g) Other condition, treatment or monitoring requiring inpatient admission [ ]IV. Severe liver disease (eg, cirrhosis) [ ]V. Significant active comorbid disease [ ]. Anticoagulation therapy [ ]VII. High-risk endoscopic features (arterial bleeding, adherent clot, nonbleeding visible vessel, varices, flat red spots, ulcer size greater than 2 cm, or portal hypertensive gastropathy) [ ]VIII. Previous aortic graft placement or known aortic aneurysm [ ]IX. Coagulopathy [ ]X. Syncope Extended stay beyond goal length of stay may be needed for(1)(2): [ ]a) Emergency surgery [ ]b) Varices [ ]c) Coagulation abnormalities [ ]d) Recurrent, obscure, or persistent bleeding or continued Hemodynamic instability [ ]e) Associated conditions requiring surgery (eg, perforated gastric ulcer, gastric outlet obstruction) [ ]f) Active comorbidities (eg, renal insufficiency, heart failure, pre- existing liver disease) The original [facility] [employer] content created by [facility] has been revised. The portions of the content which have been revised are identified through the use of italic text or in bold, and [facility] has neither reviewed nor approved the modified material. All other unmodified content is copyright [facility] [employer]. Please see references footnoted in the original [facility] [employer] edition 2016 Admission Criteria Met: Yes
[2017-06-03] MEDS: CORDARONE PO SCH ×2 (10:00→22:19)
[2017-06-03] MEDS ORDERED: NON-FORMULARY (Lubiprostone (Nf) 24 MCG) PO SCH (10:00)
[2017-06-03] MEDS ORDERED: NON-FORMULARY (Ambrisentan [Letairis] 10 MG) PO SCH (10:00)
[2017-06-03] MEDS ORDERED: LEVAQUIN 250MG/50ML 250 MG/50 ML BAG IV SCH (10:00)
[2017-06-03] MEDS ORDERED: NON-FORMULARY (Naloxegol Oxalate [Movantik] 25 MG) PO SCH (10:00)
[2017-06-03] MEDS ORDERED: NACL 0.9 (PRIMING MACHINE ONLY DIALYSIS) MC ONE (12:44)
--- NOTE | 2017-06-03 13:17 | Progress Note ---
Assessment and Plan Total Time Spent with Patient (Minutes): 26 - Patient Problems (1) Acute blood loss anemia Current Visit: Yes Status: Acute Plan to address problem: Acute blood loss anemia patient is scheduled to have EGD and colonoscopy today. Continue to hold bellicose. No clear signs of active bleeding at this time. The rest of the hospital course would depend on what we find on this mornings EGD. We'll continue to hold bellicose for now. (2) Anticoagulant long-term use Current Visit: Yes Status: Acute Plan to address problem: We'll continue L course for now. (3) Guaiac positive stools Current Visit: Yes Status: Acute (4) Atrial fibrillation Current Visit: Yes Status: Chronic Qualifiers: Atrial fibrillation type: A Plan to address problem: Atrial fibrillation currently on hold rate well controlled at this particular time in the 70s. (5) Chronic back pain Current Visit: Yes Status: Chronic Qualifiers: Back pain location: B Back pain laterality: B Sciatica presence: S Sciatica laterality: S Plan to address problem: Chronic pain we'll continue current narcotic medications as when necessary. (6) ESRD on hemodialysis Current Visit: Yes Status: Chronic Plan to address problem: Renal function appears to be worse requiring hemodialysis creatinine is 13 today. Nephrology aware. History Interval history: Patient scheduled to go for EGD/colonoscopy today. Patient states he's hungry ready to eat. No acute pain. Patient feels much more comfortable at this time. Questions and concerns answered. Hospitalist Physical - Constitutional Vitals: Temp Pulse Resp BP Pulse Ox 98.1 F 79 20 98/62 99 06/03/17 10:00 06/03/17 12:45 06/03/17 10:00 06/03/17 12:45 06/03/17 09:05 General appearance: Present: no acute distress, other (chronically ill- appearing some temporal wasting.) - EENT Eyes: Present: PERRL, EOM intact, scleral icterus ENT: hearing intact, clear oral mucosa, dentition normal - Neck Neck: Present: supple, normal ROM - Respiratory Respiratory effort: normal Respiratory: bilateral: diminished (poor respiratory effort) - Cardiovascular Rhythm: regular Heart Sounds: Present: S1 & S2 - Extremities Extremities: no ischemia, pulses intact, pulses symmetrical, No edema, normal temperature, normal color, Full ROM - Abdominal General gastrointestinal: soft, non-distended, normal bowel sounds - Psychiatric Psychiatric: appropriate mood/affect, cooperative - Neurologic Neurologic: CNII-XII intact Results - Labs CBC & Chem 7: 06/03/17 06:37 06/03/17 04:35 Labs: Laboratory Last Values WBC 3.3 K/mm3 (4.5-11.0) L 06/03/17 06:37 RBC 2.52 M/mm3 (3.65-5.03) L 06/03/17 06:37 Hgb 7.5 gm/dl (11.8-15.2) L 06/03/17 06:37 Hct 22.8 % (35.5-45.6) L 06/03/17 06:37 MCV 90 fl (84-94) 06/03/17 06:37 MCH 30 pg (28-32) 06/03/17 06:37 MCHC 33 % (32-34) 06/03/17 06:37 RDW 19.0 % (13.2-15.2) H 06/03/17 06:37 Plt Count 176 K/mm3 (140-440) 06/03/17 06:37 Lymph % (Auto) 19.3 % (13.4-35.0) 06/03/17 06:37 [place] % (Auto) 10.1 % (0.0-7.3) H 06/03/17 06:37 Eos % (Auto) 4.2 % (0.0-4.3) 06/03/17 06:37 Baso % (Auto) 0.7 % (0.0-1.8) 06/03/17 06:37 Lymph # 0.6 K/mm3 (1.2-5.4) L 06/03/17 06:37 [place] # 0.3 K/mm3 (0.0-0.8) 06/03/17 06:37 Eos # 0.1 K/mm3 (0.0-0.4) 06/03/17 06:37 Baso # 0.0 K/mm3 (0.0-0.1) 06/03/17 06:37 Seg Neutrophils % 65.7 % (40.0-70.0) 06/03/17 06:37 Seg Neutrophils # 2.2 K/mm3 (1.8-7.7) 06/03/17 06:37 PT 15.0 Sec. (12.2-14.9) H 06/01/17 20:47 INR 1.12 (0.87-1.13) 06/01/17 20:47 APTT 34.8 Sec. (24.2-36.6) 06/01/17 20:47 Sodium 139 mmol/L (137-145) 06/03/17 04:35 Potassium 4.7 mmol/L (3.6-5.0) D 06/03/17 04:35 Chloride 90.6 mmol/L (98-107) L 06/03/17 04:35 Carbon Dioxide 24 mmol/L (22-30) 06/03/17 04:35 Anion Gap 29 mmol/L 06/03/17 04:35 BUN 65 mg/dL (9-20) H 06/03/17 04:35 Creatinine 13.4 mg/dL (0.8-1.5) H 06/03/17 04:35 Estimated GFR 5 ml/min 06/03/17 04:35 BUN/Creatinine Ratio 4.85 % 06/03/17 04:35 Glucose 70 mg/dL (75-100) L 06/03/17 04:35 Calcium 7.6 mg/dL (8.4-10.2) L 06/03/17 04:35 Total Bilirubin 0.40 mg/dL (0.1-1.2) 06/03/17 04:35 AST 34 units/L (5-40) 06/03/17 04:35 ALT 21 units/L (7-56) 06/03/17 04:35 Alkaline Phosphatase 80 units/L (35-129) 06/03/17 04:35 Total Creatine Kinase 262 units/L (55-170) H 06/02/17 04:33 CK-MB (CK-2) 3.3 ng/mL (0.0-4.0) 06/02/17 04:33 CK-MB (CK-2) Rel Index 1.2 (0-4) 06/02/17 04:33 Troponin T 0.214 ng/mL (0.00-0.029) H* 06/02/17 04:33 Total Protein 6.7 g/dL (6.3-8.2) 06/03/17 04:35 Albumin 3.3 g/dL (3.9-5) L 06/03/17 04:35 Albumin/Globulin Ratio 1.0 % 06/03/17 04:35 Triglycerides 59 mg/dL (2-149) 06/01/17 17:26 Cholesterol 115 mg/dL (50-199) 06/01/17 17:26 LDL Cholesterol Direct 40 mg/dL (50-130) L 06/01/17 17:26 HDL Cholesterol 64 mg/dL (40-59) H 06/01/17 17:26 Cholesterol/HDL Ratio 1.79 % 06/01/17 17:26 Blood Type O POSITIVE 06/01/17 17:25 Antibody Screen TNR 06/01/17 17:25 GAMA Antibody Screen Negative 06/01/17 17:25 Crossmatch See Detail 06/01/17 17:25 - Imaging and Cardiology Abdominal x-ray: image reviewed
--- NOTE | 2017-06-03 15:10 | Anesthesia Consultation ---
Anesthesia Consult and Med Hx Date of service: 06/03/17 - Airway Anesthetic Teeth Evaluation: Poor ROM Head & Neck: Adequate Mental/Hyoid Distance: Adequate Mallampati Class: Class II Intubation Access Assessment: Probably Good - Pulmonary Exam CTA: Yes - Cardiac Exam Cardiac Exam: RRR - Pre-Operative Health Status ASA Pre-Surgery Classification: ASA4 Proposed Anesthetic Plan: MAC - Pulmonary Hx Smoking: Yes Hx Asthma: No SOB: Yes COPD: Yes Hx Pneumonia: Yes Hx Sleep Apnea: Yes - Cardiovascular System Hx Hypertension: Yes Hx Cardia Arrhythmia: Yes (a-fib) - Central Nervous System Hx Back Pain: Yes (REMOVED LUMBAR DISC 01/2016) Hx Psychiatric Problems: No - Gastrointestinal Hx Ulcer: Yes (N/V) - Endocrine Hx Renal Disease: Yes Hx End Stage Renal Disease: Yes Hx Insulin Dependent Diabetes: No - Hematic Hx Anemia: Yes Hx Sickle Cell Disease: No - Other Systems Hx Alcohol Use: Yes Hx Substance Use: No (MARIJUANA DAILY) Hx Cancer: No Hx Obesity: Yes
--- NOTE | 2017-06-03 15:10 | Anesthesia Day of Surgery ---
Anesthesia Day of Surgery - Day of Surgery Patient Examined: Yes Patient H&P Reviewed: Yes Patient is NPO: Yes
[2017-06-03] MEDS ORDERED: XYLOCAINE MPF 2% ONE (15:30)
[2017-06-03] MEDS ORDERED: NEO SYNEPHRINE/NS Syringe(OR USE) IV ONE (15:30)
[2017-06-03] MEDS ORDERED: WATER FOR IRRIG STERILE IR ONE (15:50)
[2017-06-03] MEDS ORDERED: DIPRIVAN 10 MG/ML IV ONE ×3 (15:53)
[2017-06-03] MEDS ORDERED: NACL 0.9% 1000 ML 1,000 ML IV SCH (16:00)
--- NOTE | 2017-06-03 16:27 | Progress Note ---
Assessment and Plan Assessment: Symptomatic anemia Chronic atrial fibrillation with CVR - S/P cardioversion 3 month ago with KUSUM; on Eliquis. ESRD on HD Sleep apnea, on CPAP Pulmonary arterial hypertension - on Ambrisentan; Followed by Bertrand Oconnell M.D. [facility]. Plan: Currently stable cardiac status. Await EGD/colonoscopy and resume Eliquis once cleared by GI to resume. The patient has been seen in conjunction with Dr. Sanabria who agrees with the assessment and plan of care. Subjective Date of service: 06/03/17 Principal diagnosis: AFib/pulmonary HTN Interval history: Pt resting in bed, denies any cardiac complaints. Awaiting EGD/colonoscopy today per pt report. VSS. Objective Last Vital Signs Temp 98.1 F 06/03/17 15:11 Pulse 57 L 06/03/17 15:11 Resp 13 06/03/17 15:11 BP 104/61 06/03/17 15:11 Pulse Ox 100 06/03/17 15:11 - Physical Examination General: Appears Well Neck: Positive: neck supple Cardiac: Positive: irregularly irregular, S1/S2 Lungs: Positive: clear to auscultation Neuro: Positive: Grossly Intact Abdomen: Positive: Unremarkable, Soft, Active Bowel Sounds. Negative: Tender - Labs and Meds Cardiac Enzymes 06/03/17 Range/Units 04:35 AST 34 (5-40) units/L CBC 06/03/17 Range/Units 06:37 WBC 3.3 L (4.5-11.0) K/mm3 RBC 2.52 L (3.65-5.03) M/mm3 Hgb 7.5 L (11.8-15.2) gm/dl Hct 22.8 L (35.5-45.6) % Plt Count 176 (140-440) K/mm3 Lymph # 0.6 L (1.2-5.4) K/mm3 [place] # 0.3 (0.0-0.8) K/mm3 Eos # 0.1 (0.0-0.4) K/mm3 Baso # 0.0 (0.0-0.1) K/mm3 Comprehensive Metabolic Panel 06/03/17 Range/Units 04:35 Sodium 139 (137-145) mmol/L Potassium 4.7 D (3.6-5.0) mmol/L Chloride 90.6 L (98-107) mmol/L Carbon Dioxide 24 (22-30) mmol/L BUN 65 H (9-20) mg/dL Creatinine 13.4 H (0.8-1.5) mg/dL Glucose 70 L (75-100) mg/dL Calcium 7.6 L (8.4-10.2) mg/dL AST 34 (5-40) units/L ALT 21 (7-56) units/L Alkaline Phosphatase 80 (35-129) units/L Total Protein 6.7 (6.3-8.2) g/dL Albumin 3.3 L (3.9-5) g/dL - Imaging and Cardiology EKG: image reviewed
--- NOTE | 2017-06-03 16:45 | Post Operative Note ---
Pre-op diagnosis: Anemia Post-op diagnosis: other (Gastritis, colon polyps, fair prep, hemorrhoids) Findings: 1. Mild atrophic gastritis diffusely, cold bx randomly of stomach 2. Fair prep in colon with some brown liquid stool but no blood 3. Colon polyp transverse, 1mm, cold snare 4. Colon polyp sigmoid, 2mm, cold snare 5. Sigmoid diverticulosis, mild 6. Grade II Internal Hemorrhoids Procedure: EGD with colon biopsy; colonoscopy with cold snare polypectomy Anesthesia: MAC Surgeon: BRIAN WEIR Estimated blood loss: minimal Pathology: list (1. Random gastric biopsy. 2. Transverse colon polyp. 3. Sigmoid colon polyp.) Specimen disposition: to lab Condition: stable Disposition: floor (Recs: 1. OK to resume Eliquis today. 2. Iron supplements/ epogen as needed. 3. Patient needs outpatient capsule endoscopy. 4. OK to d/c when hct is stable.)
[2017-06-03] MEDS ORDERED: MYLICON PO PRN (22:16)
[2017-06-03] MEDS: ELIQUIS PO SCH (22:43)
--- NOTE | 2017-06-04 00:10 | Operative Report ---
PROCEDURE PERFORMED: Esophagogastroduodenoscopy with cold biopsy and colonoscopy with cold snare polypectomy. PREOPERATIVE DIAGNOSIS: Anemia. POSTOPERATIVE DIAGNOSES: Gastritis, fair preparation of the colon but no bleeding, colon polyps, diverticulosis, hemorrhoids. ENDOSCOPIST: Mike Cedillo M.D. INSTRUMENT: Filecoin video endoscope. MEDICATIONS: MAC anesthesia by [facility]. COMPLICATIONS: No apparent complications. ESTIMATED BLOOD LOSS: Minimal. SPECIMENS: 1. Random gastric biopsy. 2. Transverse colon polyp. 3. Sigmoid colon polyp. IMPLANTS: None. BILLET STRAIGHTENER: None. CONDITION AT COMPLETION: Stable. TECHNIQUE: The patient was informed of the risks and benefits of the procedure. He signed the informed consent to proceed. He was placed in left lateral decubitus position. The above sedative medications were given. His vital signs remained stable throughout the procedure. The instrument was advanced from the mouth to the second portion of the duodenum under direct visualization. At that point, the bowel was insufflated and the endoscope was slowly withdrawn. The bed was then rotated and the colonoscope was advanced from the anus to the cecum under direct visualization. The cecum was identified by the appendiceal orifice and the ileocecal valve. At that point, the bowel was insufflated and the endoscope was slowly withdrawn. The quality of preparation was only fair, and there was some semi-liquid brown stool throughout, but no evidence of bleeding. FINDINGS: 1. Mild atrophic gastritis diffusely, but no specific mass lesions seen, in the stomach. Cold biopsies were randomly taken throughout the stomach. 2. Otherwise normal upper GI tract to the second portion of the duodenum. 3. Fair preparation of the colon with some brown liquid stool, but no evidence of blood. 4. Colon polyp in the transverse colon, 1 mm, status post cold snare polypectomy. 5. Colon polyp in the sigmoid colon, 2 mm, status post cold snare polypectomy. 6. Sigmoid diverticulosis, mild. 7. Grade 2 internal hemorrhoids. RECOMMENDATIONS: 1. Okay to resume Eliquis today. 2. Iron supplements with Epogen as needed for his anemia. 3. The patient needs an outpatient capsule endoscopy, which we will arrange in the clinic. 4. Okay to discharge the patient home when he is stable. JOB# [id number] CHERELLE/NTS
[2017-06-04 05:40] LABS: Basophils % (Auto) 0.5 % (0.0-1.8); Eosinophils % (Auto) 2.9 % (0.0-4.3); Hematocrit 24.8 % (35.5-45.6); Hemoglobin 8.1 gm/dl (11.8-15.2); Mean Corpuscular HGB Conc 33 % (32-34); Mean Corpuscular Hemoglobin 30 pg (28-32); Mean Corpuscular Volume 92 fl (84-94); Platelet Count 171 K/mm3 (140-440); Red Blood Count 2.69 M/mm3 (3.65-5.03); Red Cell Distribution Width 18.4 % (13.2-15.2); White Blood Count 5.1 K/mm3 (4.5-11.0)
[2017-06-04 06:03] LABS: BUN/Creatinine Ratio 4.25; Calcium 7.8 mg/dL (8.4-10.2); Chloride 92.5 mmol/L (98-107); Potassium 4.8 mmol/L (3.6-5.0)
[2017-06-04] MEDS: FLAGYL PO SCH (06:45)
[2017-06-04] MEDS: DILAUDID IV PRN ×2 (07:14→11:54)
--- NOTE | 2017-06-04 08:09 | Progress Note ---
Assessment and Plan - Patient Problems (1) ESRD on hemodialysis Status: Chronic Plan to address problem: Patient was last dialyzed yesterday. (2) Symptomatic anemia Status: Acute Plan to address problem: S/p PRBC, H / H is better. Epogen on dialysis days. (3) Atrial fibrillation Status: Chronic Qualifiers: Atrial fibrillation type: A (4) Guaiac positive stools Status: Acute (5) Chronic back pain Status: Chronic Qualifiers: Back pain location: B Back pain laterality: B Sciatica presence: S Sciatica laterality: S Subjective Date of service: 06/04/17 Principal diagnosis: AFib/pulmonary HTN Interval history: No new complaint, feeling better. Objective - Vital Signs Vital signs: Vital Signs - 12hr 06/03/17 22:00 Temperature 97.9 F Pulse Rate [ 77 Right] Respiratory 16 Rate Blood Pressure 119/77 [Right Arm] O2 Sat by Pulse 100 Oximetry - General Appearance General appearance: well-developed, well-nourished, appears stated age, other ( no distress) EENT: ATNC, PERRL, hearing intact, vision intact Neck: supple Respiratory: Present: Clear to Ascultation Cardiology: irregular, S1S2, no murmurs Gastrointestinal: normoactive bowel sounds, no tenderness, no distended Integumentary: no rash Neurologic: no focal deficit, no asterixis, alert and oriented x3, CN 3-12 intact Musculoskeletal: other (no edema, left arm AVF) Psychiatric: mood/affect appropriate, cooperative - Lab 06/04/17 05:10 06/04/17 05:10 Most recent lab results Calcium 7.8 mg/dL (8.4-10.2) L 06/04/17 05:10
--- NOTE | 2017-06-04 08:28 | Consultation ---
REASON FOR CONSULTATION: Atrial fibrillation and pulmonary hypertension. HISTORY OF PRESENT ILLNESS: This 47-year-old patient with a history of end-stage renal disease of 15 years' duration, has been on home dialysis 4 times a week, has been having shortness of breath and fatigue for the last 2-3 weeks. The patient is usually followed by [facility]. He has educational technician, calibration tester. The patient [place] on this side of [place] [facility] and therefore, he came to [facility] for further evaluation. In the Emergency Room, he was noted to have low hemoglobin at 6.7 g with 20 hematocrit. The patient has not been getting Procrit lately. His educational technician is Dr. Sierra Barber. Regarding his cardiac history, the patient is known to have atrial fibrillation for at least a year and has been taking Eliquis 2.5 mg twice a day because of end-stage renal disease. The patient had routine echocardiogram in January or February of this year which revealed pulmonary hypertension of 70 mmHg. Therefore, his calibration tester referred him to Dr. Bertrand Oconnell, pulmonary arterial hypertension specialist, who did cardiac catheterization right-sided as well as left coronary arteriogram. The patient did not have any coronary artery disease. His EF was mildly reduced. Right heart catheterization revealed pulmonary hypertension, 44 mean pressure. Pulmonary capillary wedge pressure was 12 mmHg. The etiology of pulmonary arterial hypertension is not clear from reviewing the charts of [facility]. To me it is probably due to sleep apnea with pulmonary hypertension. There may be another etiology, but I am not clear on this. In the past, he has had EGD in 2013 which showed erosive antral gastritis and duodenitis. SOCIAL HISTORY: The patient does not smoke, does not take any alcohol. HOME MEDICATIONS: Include the following: Clonazepam 1.5 mg b.i.d., albuterol sulfate 1 puff p.r.n., PhosLo 7 tablets p.o. 3 times a day, oxycodone with acetaminophen q. 4 hours p.r.n. for neck pain and back pain, ambrisentan 10 mg once a day, amiodarone 100 mg tablets 200 mg b.i.d., Eliquis 2.5 mg twice a day, Amitiza 24 mcg once a day and Zanaflex 2 mg p.o. 3 times a day p.r.n. PAST MEDICAL HISTORY: Positive for hypertension ending up with renal disease, history of COPD. PAST SURGICAL HISTORY: Back surgery and diskectomy approximately August 2016. He had gastrectomy 20 years ago for bleeding ulcers. He has undergone parathyroidectomy. PHYSICAL EXAMINATION: GENERAL: The patient is in no acute distress. VITAL SIGNS: Pulse 70 per minute, irregular. NECK: No JVP elevation, no bruits. LUNGS: Clear. HEART: PMI not palpable, irregular heart sounds. No gallops. No audible murmurs. ABDOMEN: Soft, nontender. Bowel sounds are active. EXTREMITIES: No edema. DIAGNOSTIC DATA: Hemoglobin 6.7 g percent and hematocrit of 20.7. BUN 54, creatinine 10.8 and potassium 3.7. His troponin is 0.233. Triglycerides 59, cholesterol 115, LDL 40 and HDL 64. EKG revealed atrial fibrillation with controlled ventricular rate, nonspecific ST-T wave changes. Chest x-ray unremarkable. IMPRESSION: 1. Atrial fibrillation with controlled ventricular rate. CHADS score 2. The patient is on Eliquis, continue. He is also on amiodarone. 2. Sleep apnea. Using CPAP at home for the last 5 years. 3. Pulmonary arterial hypertension. Etiology is not clear, most likely sleep apnea causing vasoconstriction. 4. Status post cardioversion 3 months ago under the guidance of transesophageal echocardiogram. He was in sinus rhythm for few days. 5. End-stage renal disease, on hemodialysis. 6. Severe anemia out of proportion to the kidney disease. DISCUSSION: The patient is stable to have endoscope or colonoscopy if needed. He needs to have blood transfusion to improve his symptoms. Continue current medications as taken at home. JOB# [id number] KAMI/NTS
[2017-06-04] MEDS ORDERED: PROVENTIL IH SCH (08:45)
[2017-06-04] MEDS: PHOSLO PO SCH (08:46)
[2017-06-04 08:47] VITALS: BP 115/76
--- NOTE | 2017-06-04 09:03 | Gastroenterology Progress Note ---
Assessment and Plan 1.anemia -HGB 8.1- stable -continue to monitor H&H and transfuse as needed -no active signs of bleeding overnight or this morning -S/P EGD and colonoscopy yesterday- revealed mild atrophic gastritis and colon polyps -Bx results-pending -no further GI intervention recommend at this time -pt is okay to be d/c from GI standpoint on daily PPI and with a f/u appt in 1 to 3 weeks to schedule an outpatient capsule endoscopy -discussed need for f/u appt with pt, office information and card given -ana maria sign off Subjective Date of service: 06/04/17 Principal diagnosis: anemia Interval history: Patient sitting up in bed. No acute distress noted. Denies signs of active bleeding overnight or this morning. Objective - Constitutional Vitals: Temp Pulse Resp BP Pulse Ox 98.9 F 109 H 18 115/76 100 06/04/17 07:50 06/04/17 08:57 06/04/17 08:57 06/04/17 07:50 06/04/17 07:50 General appearance: no acute distress, well-nourished - EENT Eyes: PERRL, EOM intact ENT: hearing intact - Neck Neck: supple, normal ROM - Respiratory Respiratory: bilateral: diminished (anterior) - Cardiovascular Heart Sounds: Present: S1 & S2 - Extremities Extremities: No edema - Gastrointestinal General gastrointestinal: Present: soft, non-tender, non-distended, normal bowel sounds - Integumentary Integumentary: Present: warm, dry - Neurologic Neurological: alert and oriented x3 - Psychiatric Psychiatric: appropriate mood/affect, cooperative - Labs CBC & Chem 7: 06/04/17 05:10 06/04/17 05:10 Labs: Laboratory Results - last 24 hr 06/04/17 06/04/17 05:10 05:10 WBC 5.1 RBC 2.69 L Hgb 8.1 L Hct 24.8 L MCV 92 MCH 30 MCHC 33 RDW 18.4 H Plt Count 171 Lymph % (Auto) 13.3 L Charlton % (Auto) 14.4 H Eos % (Auto) 2.9 Baso % (Auto) 0.5 Lymph # 0.7 L Charlton # 0.7 Eos # 0.1 Baso # 0.0 Seg Neutrophils % 68.9 Seg Neutrophils # 3.5 Sodium 137 Potassium 4.8 Chloride 92.5 L Carbon Dioxide 29 Anion Gap 20 BUN 34 H Creatinine 8.0 H Estimated GFR 9 BUN/Creatinine Ratio 4.25 Glucose 83 Calcium 7.8 L
--- NOTE | 2017-06-04 10:03 | Progress Note ---
Assessment and Plan Assessment: Symptomatic anemia - improved; H/H stable. Chronic atrial fibrillation with CVR - S/P cardioversion 3 month ago with KUSUM; on Eliquis. ESRD on HD Sleep apnea, on CPAP Pulmonary arterial hypertension - on Ambrisentan; Followed by Bertrand Oconnell M.D. at [facility]. Plan: Currently stable cardiac status. s/p EGD/colonoscopy yesterday. Eliquis resumed per GI. Pt may discharge home from cardiology standpoint. Recommend pt follow up with primary cardiology team at [place] within 2 weeks of hospital discharge. The patient has been seen in conjunction with Dr. Sanabria who agrees with the assessment and plan of care. Subjective Date of service: 06/04/17 Principal diagnosis: anemia Interval history: /pPt resting in bed, denies any cardiac complaints. c/o sciatica pain. H/H/ stable. s/p EGD/colonoscopy yesterday. VSS. Objective Last Vital Signs Temp 98.9 F 06/04/17 07:50 Pulse 109 H 06/04/17 08:57 Resp 18 06/04/17 08:57 BP 115/76 06/04/17 07:50 Pulse Ox 100 06/04/17 07:50 - Physical Examination General: Appears Well Neck: Positive: neck supple Cardiac: Positive: irregularly irregular, S1/S2 Lungs: Positive: clear to auscultation Neuro: Positive: Grossly Intact Abdomen: Positive: Unremarkable, Soft, Active Bowel Sounds. Negative: Tender Skin: Positive: Clear. Negative: Rash, Wound Musculoskeletal: No Fluid Collection, No Pain, Normal Range of Motion Extremities: Absent: edema - Labs and Meds CBC 06/04/17 Range/Units 05:10 WBC 5.1 (4.5-11.0) K/mm3 RBC 2.69 L (3.65-5.03) M/mm3 Hgb 8.1 L (11.8-15.2) gm/dl Hct 24.8 L (35.5-45.6) % Plt Count 171 (140-440) K/mm3 Lymph # 0.7 L (1.2-5.4) K/mm3 Harlan # 0.7 (0.0-0.8) K/mm3 Eos # 0.1 (0.0-0.4) K/mm3 Baso # 0.0 (0.0-0.1) K/mm3 Comprehensive Metabolic Panel 06/04/17 Range/Units 05:10 Sodium 137 (137-145) mmol/L Potassium 4.8 (3.6-5.0) mmol/L Chloride 92.5 L (98-107) mmol/L Carbon Dioxide 29 (22-30) mmol/L BUN 34 H (9-20) mg/dL Creatinine 8.0 H (0.8-1.5) mg/dL Glucose 83 (75-100) mg/dL Calcium 7.8 L (8.4-10.2) mg/dL - Imaging and Cardiology EKG: image reviewed - Telemetry EKG Rhythm: Atrial Fibrillation
--- NOTE | 2017-06-04 10:36 | Discharge Summary ---
Providers - Providers Date of Admission: 06/01/17 22:49 Date of discharge: 06/04/17 Attending physician: DIA STACY 06/02/17 10:07 Consult to Physician [CONS] Routine Consulting Provider: VIANCA RAI Reason For Exam: NSTEMI Place consult to:: DR. Ashlie LOPEZ Notified:: DR. Ashlie LOPEZ Phone number called:: IN HOUSE Was contact made?: Yes If yes, spoke with:: DR. Ashlie LOPEZ Time called:: 11:37 Comment:: LEONOR NOTIFIED Primary care physician: BORING MACHINE OPERATOR HELPER Hospitalization Condition: Stable Hospital course: 47-year-old man with a history of end-stage renal disease on dialysis, Pulmonary arterial hypertension, A. fib on eliquis, last took it on 06/01 comes emergency room with complaints of lethargy 1 month. Patient states that his baseline hemoglobin is 11.5 and over the last 1 month it has been steadily decreasing. he is having melena on and off, c/o weakness and easy fatiguability , he does have abdominal pain but he states that that is chronic and not acute. Acute GI bleed, Continue PPI s/p EGD/colonoscopy, hold eliquis Acute blood loss anemia Has received transfusion appropriate rise in hemoglobin ? sigmoid colitis He has mild thickening of the sigmoid colon, both clinically the picture does not fit with infectious etiology, Continue empiric antibiotics for now, colonoscopy should provide more information Atrial fibrillation Rate controlled at the time, continue his cardiac meds, hold eliquis cc acute blood loss End-stage renal disease Hemodialysis per nephrology Non-STEMI type II Upon reviewing of his labs, his troponin is chronically elevated, therefore most likely non-STEMI type II, cardiology consults placed for further evaluation Denies chest pain Given his anemia and this is most likely demand ischemia Blood loss anemia Abdominal pain History of fibrillation on anticoagulation End-stage renal disease on dialysis Disposition: - TO HOME OR SELFCARE Time spent for discharge: 35 minutes Core Measure Documentation - Palliative Care Palliative Care/ Comfort Measures: Not Applicable Exam - Constitutional Vitals: Temp Pulse Resp BP Pulse Ox 98.9 F 109 H 18 115/76 100 06/04/17 07:50 06/04/17 08:57 06/04/17 08:57 06/04/17 07:50 06/04/17 07:50 Plan Activity: advance as tolerated Weight Bearing Status: Weight Bear as Tolerated Diet: low fat, low salt Follow up with: PRIMARY CARE, [Primary Care Provider] - 7 Days Prescriptions: oxyCODONE /ACETAMINOPHEN [Percocet 5/325 mg] 1 tab PO Q8HR PRN #7 tablet PRN Reason: Pain Pantoprazole [Protonix] 40 mg PO QDAY 30 Days
[2017-06-04] MEDS: CORDARONE PO SCH (11:17)
[2017-06-04] MEDS: ELIQUIS PO SCH (11:17)
== END 2017-06-04 13:00 | disposition home or self-care (01) | DRG 377 ==
LOC: ED 16:39 → 3A 22:49
PROVIDERS: ADMIT Internal Medicine; ATTEND Internal Medicine
PROC: 30233N1 Transfusion of Nonautologous Red Blood Cells into Peripheral Vein, Percutaneous Approach (ICD-10-PCS; principal; 2017-06-01)
PROC: 0DB68ZX Excision of Stomach, Via Natural or Artificial Opening Endoscopic, Diagnostic (ICD-10-PCS; 2017-06-03)
PROC: 5A1D00Z (ICD-10-PCS; 2017-06-03)
PROC: 0DBN8ZZ Excision of Sigmoid Colon, Via Natural or Artificial Opening Endoscopic (ICD-10-PCS; 2017-06-03)
PROC: 0DBL8ZZ Excision of Transverse Colon, Via Natural or Artificial Opening Endoscopic (ICD-10-PCS; 2017-06-03)
DX: K92.2 Gastrointestinal hemorrhage, unspecified (principal); I21.4 Non-ST elevation (NSTEMI) myocardial infarction; N18.6 End stage renal disease; D62 Acute posthemorrhagic anemia; I12.0 Hypertensive chronic kidney disease with stage 5 chronic kidney disease or end stage renal disease; Z68.43 Body mass index [BMI] 50.0-59.9, adult; I48.91 Unspecified atrial fibrillation; K57.30 Diverticulosis of large intestine without perforation or abscess without bleeding; K64.1 Second degree hemorrhoids; D12.3 Benign neoplasm of transverse colon; F17.210 Nicotine dependence, cigarettes, uncomplicated; E66.9 Obesity, unspecified; I27.2 Other secondary pulmonary hypertension; G89.29 Other chronic pain; D12.5 Benign neoplasm of sigmoid colon; J44.9 Chronic obstructive pulmonary disease, unspecified; G47.30 Sleep apnea, unspecified; Z99.2 Dependence on renal dialysis; Z88.5 Allergy status to narcotic agent; Z82.49 Family history of ischemic heart disease and other diseases of the circulatory system; Z88.1 Allergy status to other antibiotic agents; Z88.8 Allergy status to other drugs, medicaments and biological substances; Z87.01 Personal history of pneumonia (recurrent)
CPT/HCPCS: 36415; 74176; 80048; 80053; 80061; 82271; 82550; 82553; 84484; 85025; 85610; 85730; 86850; 86900; 86901; 86920; 88305; 88342; 93005; 93010; 94640; 96361; 96374; 96375; J0885; J1170; J1956; J2370; J2405; J2704; J7030; J7040; P9016

== ENCOUNTER 2017-06-25 14:43 | Emergency (ER) | payer MEDICARE ==
--- NOTE | 2017-06-25 15:31 | Emergency Department Report ---
Chief Complaint: Pain General Stated Complaint: SOB/BACK/LEG PAIN Time Seen by Provider: 06/25/17 15:24 - HPI History of Present Illness: PT states he is in pain. PT states he could not see his pain management MD for a pill count last month because he was admitted in the hospital. PT has a letter dated 06-11-17 that is him from the pain clinic. PT does not go to his new pain specialist until 07-22-17 - ROS Review of Systems: + neck pain - from Disc removal in May + sob - Exam Physical Exam: pt looks well, no acute distress in triage MSE screening note: Focused history and physical exam performed. Due to findings the following was ordered: ekg labs cxr ED Disposition for MSE Condition: Stable
[2017-06-25 15:32] VITALS: BP 110/76
[2017-06-25 16:18] LABS: Hematocrit 28.3 % (35.5-45.6); Hemoglobin 8.9 gm/dl (11.8-15.2); Mean Corpuscular HGB Conc 31 % (32-34); Mean Corpuscular Hemoglobin 29 pg (28-32); Mean Corpuscular Volume 91 fl (84-94); Platelet Count 146 K/mm3 (140-440); Red Cell Distribution Width 19.8 % (13.2-15.2); White Blood Count 4.4 K/mm3 (4.5-11.0)
[2017-06-25 16:20] LABS: Basophils % (Auto) 0.9 % (0.0-1.8); Eosinophils % (Auto) 7.5 % (0.0-4.3)
[2017-06-25 16:49] LABS: BUN/Creatinine Ratio 4.85; Calcium 8.1 mg/dL (8.4-10.2); Chloride 89.3 mmol/L (98-107); Potassium 3.8 mmol/L (3.6-5.0)
--- NOTE | 2017-06-26 07:32 | XRay Report ---
ROUTINE CHEST, TWO VIEWS: HISTORY: Shortness of breath. There is mild cardiomegaly and mild central pulmonary venous congestion. The lungs are clear. No evidence for pneumonia, CHF or pneumothorax. The bony structures are within normal limits. IMPRESSION: Mild cardiomegaly and pulmonary venous congestion but no CHF.
== END 2017-06-26 00:06 | disposition left against medical advice (07) ==
LOC: ED 14:43
DX: R06.02 Shortness of breath (principal); M54.2 Cervicalgia; Z53.21 Procedure and treatment not carried out due to patient leaving prior to being seen by health care provider
CPT/HCPCS: 36415; 71020; 80048; 80061; 84484; 85025

== ENCOUNTER 2017-06-27 04:42 | Emergency (ER) | payer MEDICARE ==
[2017-06-27 05:09] VITALS: BP 106/75
[2017-06-27] MEDS ORDERED: PERCOCET 5/325 PO ONE (07:54)
--- NOTE | 2017-06-27 07:54 | Emergency Department Report ---
ED General Adult HPI - General Chief complaint: Pain General Stated complaint: BODY PAIN Time Seen by Provider: 06/27/17 07:26 Source: patient Mode of arrival: Ambulatory Limitations: No Limitations - History of Present Illness Initial comments: 47-year-old male with chronic back and neck pain presents to the ED complaining about back and neck pain. Patient states that he was discharged from his pain clinic. States that he is having an exacerbation of his chronic back pain without radiation. Denies fever, chest pain, shortness of breath, problems with bowel movement or urination. - Related Data Home Medications Medication Instructions Recorded Confirmed Last Taken clonazePAM [Clonazepam] 1.5 tab PO BID 11/16/13 06/02/17 06/01/17 09:00 Albuterol Sulfate [Proair Hfa] 1 puff INHALATION PRN PRN 02/28/16 06/02/1706/01 09:00 1 puff Calcium Acetate [Phoslo] 7 tab PO TID 02/28/16 06/02/17 06/01/17 09:00 667 mg Ambrisentan [Letairis] 10 mg PO DAILY 06/01/17 06/02/17 06/01/17 09:00 10 mg Amiodarone HCl [Amiodarone 100 MG 200 mg PO BID 06/01/17 06/02/17 06/01/17 09:00 TAB] 200 mg Apixaban [Eliquis] 2.5 mg PO DAILY 06/01/17 06/02/17 06/01/17 09:00 2.5 Lubiprostone (Nf) [Amitiza (Nf)] 24 mcg PO DAILY 06/01/17 06/02/17 06/01/17 09: 00 24 mcg Naloxegol Oxalate [Movantik] 25 mg PO DAILY 06/01/17 06/02/17 06/01/17 09:00 12.5 Tizanidine HCl [Zanaflex] 2 mg PO TID PRN 06/01/17 06/02/17 06/01/17 09:00 2 mg Previous Rx's Medication Instructions Recorded Last Taken Type Pantoprazole [Protonix] 40 mg PO QDAY 30 Days 06/04/17 Unknown Rx oxyCODONE /ACETAMINOPHEN [Percocet 1 tab PO Q8HR PRN #7 tablet 06/04/17 Unknown Rx 5/325 mg] Acetaminophen/Codeine [Tylenol 1 tab PO Q6H PRN #14 tab 06/27/17 Unknown Rx /Codeine # 3 tab] Allergies Allergy/AdvReac Type Severity Reaction Status Date / Time CARMEL Inhibitors Allergy Angioedema Verified 02/29/16 11:21 morphine Allergy Itching Verified 02/29/16 15:28 tetracycline [Tetracycline] Allergy Angioedema Verified 02/29/16 11:21 valsartan [From Diovan] Allergy Angioedema Verified 02/29/16 11:21 PLASTIC TAPE Allergy Rash Uncoded 02/29/16 11:21 ED Review of Systems ROS: Stated complaint: BODY PAIN Other details as noted in HPI Constitutional: denies: chills, fever Eyes: denies: eye pain, eye discharge, vision change ENT: denies: ear pain, throat pain Respiratory: denies: cough, shortness of breath, wheezing Cardiovascular: denies: chest pain, palpitations Endocrine: no symptoms reported Gastrointestinal: denies: abdominal pain, nausea, diarrhea Genitourinary: denies: urgency, dysuria Musculoskeletal: back pain. denies: joint swelling, arthralgia Skin: denies: rash, lesions Neurological: denies: headache, weakness, paresthesias Psychiatric: denies: anxiety, depression Hematological/Lymphatic: denies: easy bleeding, easy bruising ED Past Medical Hx - Past Medical History Previous Medical History?: Yes Hx Hypertension: Yes Hx Congestive Heart Failure: Yes Hx Diabetes: No Hx GERD: Yes Hx Renal Disease: Yes Hx Sickle Cell Disease: No Hx Asthma: No Hx COPD: Yes Hx HIV: No Additional medical history: Patient on Dialysis - Surgical History Past Surgical History?: Yes Additional Surgical History: MRSA chest - surgery to remove infection. Fistula left arm 2011. Ankle surgery. Removal part of stomach for bleeding ulcers. Parathyroidectomy. Neck surgery/discotomy approximately Jun 2017. Back surgery /discotomy approximately Aug 2016 - Social History Smoking Status: Never Smoker Substance Use Type: None - Medications Home Medications: Home Medications Medication Instructions Recorded Confirmed Last Taken Type clonazePAM [Clonazepam] 1.5 tab PO BID 11/16/13 06/02/17 06/01/17 09:00 History Albuterol Sulfate [Proair Hfa] 1 puff INHALATION PRN PRN 02/28/16 06/02/1706/01 09:00 History 1 puff Calcium Acetate [Phoslo] 7 tab PO TID 02/28/16 06/02/17 06/01/17 09:00 History 667 mg Ambrisentan [Letairis] 10 mg PO DAILY 06/01/17 06/02/17 06/01/17 09:00 History 10 mg Amiodarone HCl [Amiodarone 100 MG 200 mg PO BID 06/01/17 06/02/17 06/01/17 09: 00 History TAB] 200 mg Apixaban [Eliquis] 2.5 mg PO DAILY 06/01/17 06/02/17 06/01/17 09:00 History 2.5 Lubiprostone (Nf) [Amitiza (Nf)] 24 mcg PO DAILY 06/01/17 06/02/17 06/01/17 09: 00 History 24 mcg Naloxegol Oxalate [Movantik] 25 mg PO DAILY 06/01/17 06/02/17 06/01/17 09:00 History 12.5 Tizanidine HCl [Zanaflex] 2 mg PO TID PRN 06/01/17 06/02/17 06/01/17 09:00 History 2 mg Pantoprazole [Protonix] 40 mg PO QDAY 30 Days 06/04/17 Unknown Rx oxyCODONE /ACETAMINOPHEN [Percocet 1 tab PO Q8HR PRN #7 tablet 06/04/17 Unknown Rx 5/325 mg] Acetaminophen/Codeine [Tylenol 1 tab PO Q6H PRN #14 tab 06/27/17 Unknown Rx /Codeine # 3 tab] ED Physical Exam - General Limitations: No Limitations General appearance: alert, in no apparent distress - Head Head exam: Present: atraumatic, normocephalic - Eye Eye exam: Present: normal appearance - ENT ENT exam: Present: mucous membranes moist - Neck Neck exam: Present: normal inspection, tenderness, full ROM. Absent: meningismus, lymphadenopathy, thyromegaly - Respiratory Respiratory exam: Present: normal lung sounds bilaterally. Absent: respiratory distress - Cardiovascular Cardiovascular Exam: Present: regular rate, normal rhythm. Absent: systolic murmur, diastolic murmur, rubs, gallop - GI/Abdominal GI/Abdominal exam: Present: soft, normal bowel sounds - Rectal Rectal exam: Present: deferred - Extremities Exam Extremities exam: Present: normal inspection - Back Exam Back exam: Present: normal inspection, paraspinal tenderness. Absent: vertebral tenderness - Neurological Exam Neurological exam: Present: alert, oriented X3 - Psychiatric Psychiatric exam: Present: normal affect, normal mood - Skin Skin exam: Present: warm, dry, intact, normal color. Absent: rash ED Course Vital Signs 06/27/17 05:03 Temperature 98.3 F Pulse Rate 77 Respiratory 18 Rate Blood Pressure 106/75 O2 Sat by Pulse 100 Oximetry ED Medical Decision Making - Medical Decision Making Patient resting comfortably at this time. Critical care attestation.: If time is entered above; I have spent that time in minutes in the direct care of this critically ill patient, excluding procedure time. ED Disposition Clinical Impression: Chronic back pain Disposition: DC- TO HOME OR SELFCARE Is pt being admited?: No Does the pt Need Aspirin: No Condition: Good Instructions: Chronic Back Pain (ED) Prescriptions: Acetaminophen/Codeine [Tylenol /Codeine # 3 tab] 1 tab PO Q6H PRN #14 tab PRN Reason: Pain Referrals: PRIMARY CARE, [Primary Care Provider] - 3-5 Days Forms: Work/School Release Form(ED) Time of Disposition: 07:53
== END 2017-06-27 08:22 | disposition home or self-care (01) ==
LOC: ED 04:42
DX: M54.9 Dorsalgia, unspecified (principal); G89.29 Other chronic pain; I10 Essential (primary) hypertension; K21.9 Gastro-esophageal reflux disease without esophagitis; J44.9 Chronic obstructive pulmonary disease, unspecified
CPT/HCPCS: 99282

== ENCOUNTER 2017-12-04 13:57 | Emergency (ER) | payer MEDICARE ==
[2017-12-04 15:01] VITALS: BP 155/89
[2017-12-04 15:36] LABS: Basophils % (Auto) 0.9 % (0.0-1.8); Eosinophils # (Auto) 0.2 K/mm3 (0.0-0.4); Eosinophils % (Auto) 5.3 % (0.0-4.3); Hematocrit 29.7 % (35.5-45.6); Hemoglobin 9.6 gm/dl (11.8-15.2); Lymphocytes # (Auto) 0.7 K/mm3 (1.2-5.4); Lymphocytes % (Auto) 20.8 % (13.4-35.0); Mean Corpuscular HGB Conc 32 % (32-34); Mean Corpuscular Hemoglobin 29 pg (28-32); Mean Corpuscular Volume 90 fl (84-94); Monocytes # (Auto) 0.4 K/mm3 (0.0-0.8); Monocytes % (Auto) 11.2 % (0.0-7.3); Platelet Count 126 K/mm3 (140-440); Red Cell Distribution Width 19.3 % (13.2-15.2)
[2017-12-04 15:45] LABS: Albumin 4.1 g/dL (3.9-5); Calcium 8.1 mg/dL (8.4-10.2)
== END 2017-12-04 15:39 | disposition left against medical advice (07) ==
LOC: ED 13:57
DX: K80.80 Other cholelithiasis without obstruction (principal); Z53.1 Procedure and treatment not carried out because of patient's decision for reasons of belief and group pressure
CPT/HCPCS: 36415; 80053; 83690; 85025

== ENCOUNTER 2018-04-01 13:35 | Emergency (ER) | payer MEDICARE ==
[2018-04-01 14:38] VITALS: BP 96/69
[2018-04-01] MEDS ORDERED: PERCOCET 5/325 PO ONE (16:09)
--- NOTE | 2018-04-01 16:12 | Emergency Department Report ---
Blank Doc - Documentation Documentation: Patient is a 30-[id number]-gny-[place] male whose presenting after a fall. Patient states that he was walking towards the door and his dogs were trying to get out before he did and he tripped him. Patient fell on his left side. Patient has a rib pain states is 8 out of 10 severity is worse when he moves and when he takes a deep breath. Patient was sent in for evaluation.
--- NOTE | 2018-04-01 17:38 | XRay Report ---
FINAL REPORT EXAM: XR RIBS UNI W PA CHEST 3+V LT HISTORY: left rib pain post fall injury, pain is on left upper lateral side of rib area TECHNIQUE: Frontal chest x-ray. 4 views of left ribs. PRIORS: Chest x-ray, 04 March 2018. FINDINGS: Mild cardiomegaly stable. Lungs again show increased interstitial markings centrally about the same. Mild, discoid atelectasis or scarring projects over left midlung. Probable nipple shadows project over the bilateral lower thorax. No focal consolidation or apparent pneumothorax. Slightly acute cortical angulation in left lateral 7th rib seen on single view may be posttraumatic. No other obvious or displaced left rib fracture. Multiple surgical clips again project over the left thoracic inlet region. IMPRESSION: 1. Findings compatible with pulmonary venous hypertension similar to comparison. 2. Possible nondisplaced fracture in left lateral 7th rib.
--- NOTE | 2018-04-01 18:16 | Emergency Department Report ---
HPI - General Chief Complaint: Fall Time Seen by Provider: 04/01/18 15:30 - HPI HPI: 47-year-old male presents to ED status post fall complaining of left-sided rib lower chest pain. Patient describes pain as throbbing and aching in nature. Patient states pain is worsened with taking deep breaths. She states he did not sustain any injuries to the head or neck. Patient was at home when the incident happened. Patient states for pain prior to getting his dialysis. Patient saw Dr. hager his physician saw after today. Patient was sent to ED severe sepsis for the fall. Patient had no loss of consciousness after fall. He denies shortness of breath, difficulty breathing, chest pain, fevers chills. ED Past Medical Hx - Past Medical History Previous Medical History?: Yes Hx Hypertension: Yes Hx Congestive Heart Failure: Yes Hx Diabetes: No Hx GERD: Yes Hx Renal Disease: Yes (Patient on Dialysis) Hx Sickle Cell Disease: No Hx Asthma: No Hx COPD: Yes (HOME O2) Hx HIV: No Additional medical history: Patient on Dialysis - Surgical History Past Surgical History?: Yes Hx Cholecystectomy: Yes Additional Surgical History: MRSA chest - surgery to remove infection. Fistula left arm 2011. Ankle surgery. Removal part of stomach for bleeding ulcers. Parathyroidectomy. Neck surgery/discotomy approximately Jun 2017. Back surgery /discotomy approximately Aug 2016 - Social History Smoking Status: Former Smoker Substance Use Type: Prescribed - Medications Home Medications: Home Medications Medication Instructions Recorded Confirmed Last Taken Type Albuterol Sulfate [Proair Hfa] 1 puff INHALATION PRN PRN 02/28/16 07/23/1706/01 09:00 History 1 puff Ambrisentan [Letairis] 10 mg PO DAILY 06/01/17 07/23/17 07/22/17 History Apixaban [Eliquis] 2.5 mg PO BID 06/01/17 07/23/17 07/22/17 History Tizanidine HCl [Zanaflex] 2 mg PO TID PRN 06/01/17 07/23/17 07/22/17 History Pantoprazole [Protonix TAB] 40 mg PO QDAY 30 Days tablet 06/04/17 07/23/1709/27 Rx LORazepam [Ativan] 2 mg PO Q8HR PRN 07/23/17 07/23/17 07/22/17 History Oxycodone HCl [OxyCONTIN ER TAB] 15 mg PO BID 07/23/17 07/23/17 07/22/17 History clonazePAM [KlonoPIN] 2 mg PO QHS 07/23/17 07/23/17 07/22/17 History Ferrous Sulfate [Feosol 325 MG tab] 325 mg PO BID #60 tablet 07/26/17 Unknown Rx Naloxegol Oxalate [Movantik] 25 mg PO DAILY #30 07/26/17 07/23/17 07/22/17 Rx Acetaminophen/Codeine [Tylenol 1 tab PO Q6H PRN #12 tab 04/01/18 Unknown Rx /Codeine # 3 tab] Ibuprofen [Motrin] 800 mg PO Q8HR PRN #30 tablet 04/01/18 Unknown Rx ED Review of Systems ROS: Stated complaint: FALL Other details as noted in HPI Constitutional: denies: chills, fever Eyes: denies: eye pain, eye discharge, vision change ENT: denies: ear pain, throat pain Respiratory: denies: cough, shortness of breath, wheezing Cardiovascular: denies: chest pain, palpitations Endocrine: no symptoms reported Gastrointestinal: denies: abdominal pain, nausea, diarrhea Genitourinary: denies: urgency, dysuria Musculoskeletal: denies: back pain, joint swelling, arthralgia Skin: denies: rash, lesions Neurological: denies: headache, weakness, paresthesias Psychiatric: denies: anxiety, depression Hematological/Lymphatic: denies: easy bleeding, easy bruising Physical Exam - Physical Exam Vital Signs: Vital Signs 04/01/18 14:33 Temperature 98.7 F Pulse Rate 91 H Respiratory 20 Rate Blood Pressure 96/69 O2 Sat by Pulse 97 Oximetry Physical Exam: GENERAL: Alert and oriented x3, no apparent distress, Normal Gait, atraumatic. HEAD: Head is normocephalic and a-traumatic. EYES: Extra ocular muscles are intact. Pupils are equal, round, and reactive to light and accommodation. LUNGS: Symetrical with respiration, No wheezing, no rales or crackles, CTAB. HEART: S1, S2 present, regular rate and rhythm without murmur, no rubs, no gallops. Tenderness to palpation on the left lower lateral aspect of chest, no bruising, no ecchymosis. No flail chest ABDOMEN: No organomegaly was noted,Positive bowel sounds, soft, and non- distended. . Nontender to palpation on all Quadrants, NO CVA tenderness. EXTREMITIES/MUSCULOSKELETAL: No cyanosis, clubbing, rash, lesions or edema. SKIN: Warm and dry, No lesions, No ulceration or induration present. ED Course Vital Signs 04/01/18 14:33 Temperature 98.7 F Pulse Rate 91 H Respiratory 20 Rate Blood Pressure 96/69 O2 Sat by Pulse 97 Oximetry ED Medical Decision Making - Radiology Data Radiology results: report reviewed, image reviewed FINAL REPORT EXAM: XR RIBS UNI W PA CHEST 3+V LT HISTORY: left rib pain post fall injury, pain is on left upper lateral side of rib area TECHNIQUE: Frontal chest x-ray. 4 views of left ribs. PRIORS: Chest x-ray, 04 March 2018. FINDINGS: Mild cardiomegaly stable. Lungs again show increased interstitial markings centrally about the same. Mild, discoid atelectasis or scarring projects over left midlung. Probable nipple shadows project over the bilateral lower thorax. No focal consolidation or apparent pneumothorax. Slightly acute cortical angulation in left lateral 7th rib seen on single view may be posttraumatic. No other obvious or displaced left rib fracture. Multiple surgical clips again project over the left thoracic inlet region. IMPRESSION: 1. Findings compatible with pulmonary venous hypertension similar to comparison. 2. Possible nondisplaced fracture in left lateral 7th rib. Transcribed By: [facility] Dictated By: KRISTOPHER BADILLO MD Electronically Authenticated By: KRISTOPHER BADILLO MD Signed Date/Time: 04/01/18 3860 - Medical Decision Making 47-year-old male presents with seventh rib fracture status post fall Due to x-ray shows seventh rib non displaced Left fracture. ED course: I discussed this findings with the patient. She sent home with a spirometer. I discussed the patient to use the spirometer 3 times daily. Instructions given on how to use this spironmeter in the ED discussed the patient to follow up with primary care physician. Discussed the patient if he has any new onset or worsening symptoms such as shortness of breath difficulty breathing to return to ED immediately Patient had no respiratory distress in the ED. He is comfortable with with instructions and discharged home. Critical care attestation.: If time is entered above; I have spent that time in minutes in the direct care of this critically ill patient, excluding procedure time. ED Disposition Clinical Impression: Rib fracture Qualifiers: Encounter type: initial encounter Rib fracture type: single rib Fracture type: closed Laterality: left Qualified Code(s): S22.32XA - Fracture of one rib, left side, initial encounter for closed fracture Fall Qualifiers: Encounter type: initial encounter Qualified Code(s): W19.XXXA - Unspecified fall, initial encounter Disposition: TO HOME OR SELFCARE Is pt being admited?: No Does the pt Need Aspirin: No Condition: Stable Instructions: Rib Fracture (ED) Additional Instructions: Make sure to follow up with the primary care physician as discussed. Take all your medications as you've been prescribed. Make sure he uses spirometermeter 3 times a day. If you have any worsening symptoms or develop new symptoms please return to ED immediately. Prescriptions: Acetaminophen/Codeine [Tylenol /Codeine # 3 tab] 1 tab PO Q6H PRN #12 tab PRN Reason: Pain Ibuprofen [Motrin] 800 mg PO Q8HR PRN #30 tablet PRN Reason: Pain Referrals: PRIMARY CARE, [Primary Care Provider] - 3-5 Days [facility]3] [Provider Group] - 3-5 Days [facility] [Outside] - 3-5 Days [facility] [Outside] - 3-5 Days Forms: Accompanied Note, Work/School Release Form(ED) Time of Disposition: 18:31
== END 2018-04-01 18:40 | disposition home or self-care (01) ==
LOC: ED 13:35
DX: S22.32XA Fracture of one rib, left side, initial encounter for closed fracture (principal); K21.9 Gastro-esophageal reflux disease without esophagitis; I13.2 Hypertensive heart and chronic kidney disease with heart failure and with stage 5 chronic kidney disease, or end stage renal disease; I50.9 Heart failure, unspecified; N18.6 End stage renal disease; E11.22 Type 2 diabetes mellitus with diabetic chronic kidney disease; J44.9 Chronic obstructive pulmonary disease, unspecified; Z99.2 Dependence on renal dialysis; W18.30XA Fall on same level, unspecified, initial encounter; Y93.89 Activity, other specified; Y92.89 Other specified places as the place of occurrence of the external cause; Y99.8 Other external cause status
CPT/HCPCS: 99283

== ENCOUNTER 2018-04-27 14:00 | Emergency (ER) | payer MEDICARE ==
[2018-04-27 14:08] VITALS: BP 116/83
--- NOTE | 2018-04-27 14:55 | Emergency Department Report ---
ED Male HPI - General Chief complaint: Urogenital-Male Stated complaint: SWOLLEN TESTICALS Time Seen by Provider: 04/27/18 14:46 Source: patient Mode of arrival: Ambulatory Limitations: No Limitations - History of Present Illness Initial comments: This is a 48-year-old -Stateless male who presents with swollen left testicle and left groin pain for 1 day. Patient reports a history of chronic kidney disease, congestive heart failure, COPD, GERD, and hypertension. He had a penile implant placed 3 years ago and has not had any problems since then. He plans to follow-up with urologist sometime next week. He is concerned something is probably going on with his implant. Patient denies recent exposure to STDs. States he is only having intercourse with one person for the past 10 years. He is currently on dialysis and unable to produce urine. Denies penile discharge, pelvic pain, low back pain, chest pain, and fever. MD Complaint: testicle swelling (left), groin pain (left) -: days(s) (1 day) Location: left testicle Radiation: none Severity: mild Severity scale (0 -10): 2 Quality: aching Consistency: intermittent Improves with: none Worsens with: movement swelling. denies: discharge, mass, rash, urinary retention, blood in urine, dysuria, fever, nausea/vomiting, incontinence - Related Data Home Medications Medication Instructions Recorded Confirmed Last Taken Albuterol Sulfate [Proair Hfa] 1 puff INHALATION PRN PRN 02/28/16 07/23/1706/01 09:00 1 puff Ambrisentan [Letairis] 10 mg PO DAILY 06/01/17 07/23/17 07/22/17 Apixaban [Eliquis] 2.5 mg PO BID 06/01/17 07/23/17 07/22/17 Tizanidine HCl [Zanaflex] 2 mg PO TID PRN 06/01/17 07/23/17 07/22/17 LORazepam [Ativan] 2 mg PO Q8HR PRN 07/23/17 07/23/17 07/22/17 Oxycodone HCl [OxyCONTIN ER TAB] 15 mg PO BID 07/23/17 07/23/17 07/22/17 clonazePAM [KlonoPIN] 2 mg PO QHS 07/23/17 07/23/17 07/22/17 Previous Rx's Medication Instructions Recorded Last Taken Type Pantoprazole [Protonix TAB] 40 mg PO QDAY 30 Days tablet 06/04/17 07/22/17 Rx Ferrous Sulfate [Feosol 325 MG tab] 325 mg PO BID #60 tablet 07/26/17 Unknown Rx Naloxegol Oxalate [Movantik] 25 mg PO DAILY #30 07/26/17 07/22/17 Rx Acetaminophen/Codeine [Tylenol 1 tab PO Q6H PRN #12 tab 04/01/18 Unknown Rx /Codeine # 3 tab] Ibuprofen [Motrin] 800 mg PO Q8HR PRN #30 tablet 04/01/18 Unknown Rx Cephalexin [Keflex] 500 mg PO Q12HR #20 cap 04/27/18 Unknown Rx traMADol [Ultram 50 MG tab] 50 mg PO Q6HR PRN #15 tablet 04/27/18 Unknown Rx Allergies Allergy/AdvReac Type Severity Reaction Status Date / Time CARMEL Inhibitors Allergy Angioedema Verified 07/23/17 11:21 morphine Allergy Itching Verified 07/23/17 11:21 tetracycline [Tetracycline] Allergy Angioedema Verified 07/23/17 11:21 valsartan [From Diovan] Allergy Angioedema Verified 07/23/17 11:21 PLASTIC TAPE Allergy Rash Uncoded 02/29/16 11:21 ED Review of Systems ROS: Stated complaint: SWOLLEN TESTICALS Other details as noted in HPI Constitutional: denies: chills, fever Respiratory: denies: cough, shortness of breath, wheezing Cardiovascular: denies: chest pain, palpitations Gastrointestinal: denies: abdominal pain, nausea, diarrhea Genitourinary: denies: urgency, dysuria, frequency, hematuria, discharge, testicular pain (left testicular swelling with left groin pain), testicular mass Skin: denies: rash, lesions Neurological: denies: headache, weakness, numbness, paresthesias Psychiatric: denies: anxiety, depression ED Past Medical Hx - Past Medical History Hx Hypertension: Yes Hx Congestive Heart Failure: Yes Hx Diabetes: No Hx GERD: Yes Hx Renal Disease: Yes (Patient on Dialysis) Hx Sickle Cell Disease: No Hx Asthma: No Hx COPD: Yes (HOME O2) Hx HIV: No Additional medical history: Patient on Dialysis - Surgical History Hx Cholecystectomy: Yes Additional Surgical History: MRSA chest - surgery to remove infection. Fistula left arm 2011. Ankle surgery. Removal part of stomach for bleeding ulcers. Parathyroidectomy. Neck surgery/discotomy approximately Jun 2017. Back surgery /discotomy approximately Aug 2016 - Social History Smoking Status: Never Smoker Substance Use Type: Marijuana - Medications Home Medications: Home Medications Medication Instructions Recorded Confirmed Last Taken Type Albuterol Sulfate [Proair Hfa] 1 puff INHALATION PRN PRN 02/28/16 07/23/1706/01 09:00 History 1 puff Ambrisentan [Letairis] 10 mg PO DAILY 06/01/17 07/23/17 07/22/17 History Apixaban [Eliquis] 2.5 mg PO BID 06/01/17 07/23/17 07/22/17 History Tizanidine HCl [Zanaflex] 2 mg PO TID PRN 06/01/17 07/23/17 07/22/17 History Pantoprazole [Protonix TAB] 40 mg PO QDAY 30 Days tablet 06/04/17 07/23/1709/27 Rx LORazepam [Ativan] 2 mg PO Q8HR PRN 07/23/17 07/23/17 07/22/17 History Oxycodone HCl [OxyCONTIN ER TAB] 15 mg PO BID 07/23/17 07/23/17 07/22/17 History clonazePAM [KlonoPIN] 2 mg PO QHS 07/23/17 07/23/17 07/22/17 History Ferrous Sulfate [Feosol 325 MG tab] 325 mg PO BID #60 tablet 07/26/17 Unknown Rx Naloxegol Oxalate [Movantik] 25 mg PO DAILY #30 07/26/17 07/23/17 07/22/17 Rx Acetaminophen/Codeine [Tylenol 1 tab PO Q6H PRN #12 tab 04/01/18 Unknown Rx /Codeine # 3 tab] Ibuprofen [Motrin] 800 mg PO Q8HR PRN #30 tablet 04/01/18 Unknown Rx Cephalexin [Keflex] 500 mg PO Q12HR #20 cap 04/27/18 Unknown Rx traMADol [Ultram 50 MG tab] 50 mg PO Q6HR PRN #15 tablet 04/27/18 Unknown Rx ED Physical Exam - General Limitations: No Limitations General appearance: alert, in no apparent distress - Respiratory Respiratory exam: Present: normal lung sounds bilaterally. Absent: respiratory distress - Cardiovascular Cardiovascular Exam: Present: regular rate, normal rhythm. Absent: systolic murmur, diastolic murmur, rubs, gallop - GI/Abdominal GI/Abdominal exam: Present: soft, normal bowel sounds. Absent: organomegaly, mass - exam: Present: scrotal swelling, circumcision. Absent: testicular tenderness , urethral discharge, vertical testicular lie External exam: Absent: erythema, lesions, lacerations, ecchymosis, bleeding - Expanded Lower Extremity Exam Left Hip exam: Present: normal inspection, full ROM Upper Leg exam: Present: normal inspection, full ROM Knee exam: Present: normal inspection, full ROM Lower Leg exam: Present: normal inspection, full ROM Ankle exam: Present: normal inspection, full ROM Foot/Toe exam: Present: normal inspection, full ROM Neuro vascular tendon exam: Present: no vascular compromise Gait: Positive: observed and normal - Back Exam Back exam: Present: normal inspection. Absent: CVA tenderness (R), CVA tenderness (L) - Neurological Exam Neurological exam: Present: alert, oriented X3 - Psychiatric Psychiatric exam: Present: normal affect, normal mood - Skin Skin exam: Present: warm, dry, intact, normal color. Absent: rash ED Course Vital Signs 04/27/18 14:05 Temperature 98.8 F Pulse Rate 83 Respiratory 18 Rate Blood Pressure 116/83 O2 Sat by Pulse 100 Oximetry ED Medical Decision Making - Radiology Data Radiology results: report reviewed PROCEDURE: Left hip. TECHNIQUE: AP pelvis, frogleg lateral view of the left hip. HISTORY: Left hip pain. COMPARISON: No prior studies are available for comparison. FINDINGS: The bones appear intact without fracture or dislocation. The joint spaces appear normal. The soft tissues are unremarkable. There is extensive atherosclerotic calcification in the visualized arteries. A penile prosthesis is noted. IMPRESSION: No significant hip abnormality. PROCEDURE: Scrotal ultrasound. TECHNIQUE: Real-time crowder-scale and color flow Doppler sonography in multiple planes of the scrotum, testicles, and epididymes was performed. Velocity spectral waveform analysis Doppler imaging of the arterial inflow and venous outflow of the testicles was performed with image documentation. CPT 98989 and 58034 HISTORY: Left testicular pain. COMPARISON: No prior studies are available for comparison. FINDINGS: Both testes have uniform echogenicity. There are no focal masses. There is normal testicular blood flow demonstrated bilaterally by Doppler spectral analysis and color-flow imaging. There are some linear echogenicities at the posterior margins of both testes. These could represent some calcifications. There are at least 4 cysts in the head of the left epididymis. There is no increased blood flow detected in either epididymis. There is some thickening of the left-sided scrotal wall. A penile prosthesis is present. A reservoir is present. The patient also reported pain in the left groin. There are two lymph nodes imaged in the left groin. IMPRESSION: Left epididymal head cysts. Possible small calcifications at the periphery of the testicles. Left-sided scrotal wall thickening. No mass lesions. Small left inguinal lymph nodes. - Medical Decision Making This is a 48-year-old -Stateless male presents with left swollen testicle with left-sided groin pain for 1 day. Patient was examined by me. Vitals are normal and patient is in no acute distress. Patient was given tramadol 50 mg by mouth once while in ER. Patient reports discomfort has improved. Obtained ultrasound of testicles and left hip x-ray. Ultrasound of scrotum impression: Left epididymal head cysts. Possible small calcifications at the periphery of the testicles. Left-sided scrotal wall thickening. No mass lesions. Small left inguinal lymph nodes. Xray of left hip normal scan. Start cephalexin and tramadol for scrotal cellulitis. Patient informed of results and ER plan. He agrees with ER plan. Patient discharged home in stable condition. Follow up with PCP and urologist in 2-3 days. Critical care attestation.: If time is entered above; I have spent that time in minutes in the direct care of this critically ill patient, excluding procedure time. ED Disposition Clinical Impression: Cellulitis of scrotum, Left groin pain, Swelling of left testicle Disposition: DC-01 TO HOME OR SELFCARE Is pt being admited?: No Does the pt Need Aspirin: No Condition: Stable Instructions: Cellulitis (ED) Additional Instructions: Avoid drinking alcohol while taking antibiotics and for 24 hours after completion. Continue safe sexual intercourse. Complete the full course of antibiotics as prescribed. Where a chalk strap or tight briefs to help support testicles. Follow up with Primary Care Provider in 2-3 days. If symptoms are not improving in as we discussed follow-up with your urologist. Prescriptions: Cephalexin [Keflex] 500 mg PO Q12HR #20 cap traMADol [Ultram 50 MG tab] 50 mg PO Q6HR PRN #15 tablet PRN Reason: Pain Referrals: [facility] [Outside] - 3-5 Days [facility] [Outside] - 3-5 Days [facility] [Outside] - 3-5 Days Time of Disposition: 18:21 Print Language: GUAMANIAN
[2018-04-27] MEDS ORDERED: ULTRAM PO ONE (16:11)
--- NOTE | 2018-04-27 16:26 | Ultrasound Report ---
FINAL REPORT PROCEDURE: Scrotal ultrasound. TECHNIQUE: Real-time crowder-scale and color flow Doppler sonography in multiple planes of the scrotum, testicles, and epididymes was performed. Velocity spectral waveform analysis Doppler imaging of the arterial inflow and venous outflow of the testicles was performed with image documentation. CPT 73956 and 74234 HISTORY: Left testicular pain. COMPARISON: No prior studies are available for comparison. FINDINGS: Both testes have uniform echogenicity. There are no focal masses. There is normal testicular blood flow demonstrated bilaterally by Doppler spectral analysis and color-flow imaging. There are some linear echogenicities at the posterior margins of both testes. These could represent some calcifications. There are at least 4 cysts in the head of the left epididymis. There is no increased blood flow detected in either epididymis. There is some thickening of the left-sided scrotal wall. A penile prosthesis is present. A reservoir is present. The patient also reported pain in the left groin. There are two lymph nodes imaged in the left groin. IMPRESSION: Left epididymal head cysts. Possible small calcifications at the periphery of the testicles. Left-sided scrotal wall thickening. No mass lesions. Small left inguinal lymph nodes.
--- NOTE | 2018-04-27 17:52 | XRay Report ---
FINAL REPORT PROCEDURE: Left hip. TECHNIQUE: AP pelvis, frogleg lateral view of the left hip. HISTORY: Left hip pain. COMPARISON: No prior studies are available for comparison. FINDINGS: The bones appear intact without fracture or dislocation. The joint spaces appear normal. The soft tissues are unremarkable. There is extensive atherosclerotic calcification in the visualized arteries. A penile prosthesis is noted. IMPRESSION: No significant hip abnormality.
== END 2018-04-27 18:15 | disposition home or self-care (01) ==
LOC: ED 14:00
DX: N49.2 Inflammatory disorders of scrotum (principal); N50.89 Other specified disorders of the male genital organs; R10.32 Left lower quadrant pain; I10 Essential (primary) hypertension; I50.9 Heart failure, unspecified; K21.9 Gastro-esophageal reflux disease without esophagitis; Z99.2 Dependence on renal dialysis; F12.90 Cannabis use, unspecified, uncomplicated; Z90.49 Acquired absence of other specified parts of digestive tract
CPT/HCPCS: 93975

== ENCOUNTER 2018-06-26 10:24 | Emergency (ER) | payer MEDICARE ==
[2018-06-26 11:22] VITALS: BP 119/81
[2018-06-26] MEDS ORDERED: PROVENTIL IH ONE (11:25)
[2018-06-26] MEDS ORDERED: ATROVENT IH ONE (11:26)
== END 2018-06-26 14:31 | disposition left against medical advice (07) ==
LOC: ED 10:24
DX: R05 Cough (principal); Z53.21 Procedure and treatment not carried out due to patient leaving prior to being seen by health care provider
CPT/HCPCS: 94640

== ENCOUNTER 2018-08-11 06:22 | Inpatient (IN) | payer MEDICARE ==
--- NOTE | 2018-07-30 12:46 | Anesthesia Consultation ---
Anesthesia Consult and Med Hx Date of service: 07/30/18 - Airway Anesthetic Teeth Evaluation: Poor, Chipped, Crowns, Bridges ROM Head & Neck: Adequate (mildly decreased rotation in all axes due to previous neck surgery) Mental/Hyoid Distance: Adequate Mallampati Class: Class III Intubation Access Assessment: Probably Good - Pulmonary Exam CTA: Yes - Cardiac Exam Cardiac Exam: RRR - Pre-Operative Health Status ASA Pre-Surgery Classification: ASA4 Proposed Anesthetic Plan: General - Pre-Anesthesia Comment Pre-Anesthesia Comments: Patient tolerates <4 METS. Limited by SOB. SOB associated with Pulonary HTN and CHF. Uses Oxygen and BiPAP when sleeping. No history of difficulty with anesthesia. Patienit has has h/o Lumbar Laminectomy. Patient with current Right upper adbominal bruise and pain. To see his PMD later today. Clearance pending. Spray Dyer: patient optimized for surgery (no bearing ring assembler as CHF 2/2 pulmonary etiology). Email Production Specialist: patient optimized for surgery. Patient does home dialysis. To dialyze himself on day prior to surgery - Pulmonary Hx Smoking: Yes (MARIJUANA ONLY ( DAILY). Stopped cigarettes 2008) Hx Asthma: No SOB: Yes (SOB with minimal activity. Tolerates <4 METs) COPD: Yes (INHALERS PRN) Hx Pneumonia: Yes Hx Sleep Apnea: Yes (DX SLEEP APNEA WITH BIPAP AND O2 USE.) - Cardiovascular System Hx Hypertension: No Hx Cardia Arrhythmia: Yes (a-fib h/o cardioversion. Stopped eliquis on 07/27/18) - Central Nervous System Hx Back Pain: Yes (CHRONIC s/p lumbar laminectomy and ACDF) Hx Psychiatric Problems: Yes (PANIC ATTACKS) - Gastrointestinal Hx Ulcer: Yes (PARTIAL GASTECTOMY FROM BLEEDING ULCER) Hx Gastroesophageal Reflux Disease: Yes (No symptoms on empty stomach) - Endocrine Hx Renal Disease: Yes (Patient on Dialysis TTS) Hx End Stage Renal Disease: Yes (HAS AVF LEFT ARM) Hx Insulin Dependent Diabetes: No Hx Non-Insulin Dependent Diabetes: Yes Hx Hyperthyroidism: Yes - Hematic Hx Anemia: Yes Hx Sickle Cell Disease: No - Other Systems Hx Alcohol Use: Yes Hx Substance Use: Yes (DAILY MARIJUANA) Hx Cancer: No Hx Obesity: Yes
[~2018-08-11 06:22] MED LIST: ANCEF/STERILE WATER 2 GM/20 ML IV NR
[2018-08-11] MEDS ORDERED: XYLOCAINE MPF 2% ONE (07:14)
[2018-08-11] MEDS ORDERED: DIPRIVAN 10 MG/ML IV ONE (07:14)
[2018-08-11] MEDS ORDERED: DECADRON ONE (07:16)
[2018-08-11] MEDS ORDERED: ZOFRAN ONE (07:16)
[2018-08-11] MEDS ORDERED: ZEMURON IV ONE (07:16)
[2018-08-11] MEDS ORDERED: DILAUDID ONE (07:16)
[2018-08-11 07:29] LABS: Basophils % (Auto) 0.6 % (0.0-1.8); Eosinophils # (Auto) 0.1 K/mm3 (0.0-0.4); Hematocrit 29.6 % (35.5-45.6); Hemoglobin 9.6 gm/dl (11.8-15.2); Lymphocytes # (Auto) 0.6 K/mm3 (1.2-5.4); Lymphocytes % (Auto) 18.8 % (13.4-35.0); Mean Corpuscular HGB Conc 32 % (32-34); Mean Corpuscular Hemoglobin 31 pg (28-32); Mean Corpuscular Volume 97 fl (84-94); Monocytes # (Auto) 0.4 K/mm3 (0.0-0.8); Monocytes % (Auto) 11.3 % (0.0-7.3); Red Blood Count 3.07 M/mm3 (3.65-5.03)
[2018-08-11] MEDS: NACL 0.9% 1000 ML 1,000 ML IV SCH ×2 (07:30→18:53)
[2018-08-11 07:32] LABS: Platelet Count 85 K/mm3 (140-440); Red Cell Distribution Width 21.6 % (13.2-15.2)
--- NOTE | 2018-08-11 07:34 | Anesthesia Day of Surgery ---
Anesthesia Day of Surgery - Day of Surgery Patient Examined: Yes Patient H&P Reviewed: Yes Patient is NPO: Yes
[2018-08-11] MEDS ORDERED: ZOFRAN IV PRN ×2 (07:35→10:54)
[2018-08-11] MEDS ORDERED: CALCIUM CHLORIDE IV ONE (07:41)
[2018-08-11] MEDS ORDERED: ACD-A 500 ML IV ONE (07:41)
[2018-08-11] MEDS ORDERED: THROMBIN (BOVINE) TP ONE (07:42)
[2018-08-11 07:50] LABS: Albumin 3.9 g/dL (3.9-5); Calcium 6.9 mg/dL (8.4-10.2)
[2018-08-11] MEDS ORDERED: METHYLENE BLUE ONE (08:00)
[2018-08-11] MEDS ORDERED: MARCAINE-EPI 0.5%-1:200,000 INFILTRATI ONE ×2 (08:00→09:27)
[2018-08-11 08:19] LABS: INR 1.15 (0.87-1.13)
[2018-08-11 08:20] LABS: Partial Thromboplastin Time 30.5 Sec. (24.2-36.6)
[2018-08-11] MEDS ORDERED: NACL 0.9% IR ONE (09:27)
[2018-08-11] MEDS ORDERED: WATER FOR IRRIG STERILE IR ONE (09:27)
[2018-08-11] MEDS ORDERED: NORCO 5/325 PO PRN (10:54)
[2018-08-11] MEDS ORDERED: AMBIEN PO PRN (10:54)
[2018-08-11] MEDS ORDERED: NARCAN 0.4 MG/1 ML IV PRN (10:54)
--- NOTE | 2018-08-11 10:54 | Short Stay Summary ---
Short Stay Documentation Date of service: 08/11/18 - History H&P: obtained from office - Allergies and Medications Current Medications: Allergies CARMEL Inhibitors Allergy (Verified 07/28/18 12:45) LIPS SWELLING morphine Allergy (Verified 07/28/18 12:45) ITCHING, RASH tetracycline [Tetracycline] Allergy (Verified 07/28/18 12:45) Rash valsartan [From Diovan] Allergy (Verified 07/28/18 12:45) SWELLING OF THROAT PLASTIC TAPE Allergy (Uncoded 07/28/18 12:45) PULLS SKIN OFF Home Medications Medication Instructions Recorded Confirmed Last Taken Type Albuterol Sulfate [Proair Hfa] 1 puff INHALATION PRN PRN 02/28/16 08/11/1808/11 History Ambrisentan [Letairis] 10 mg PO DAILY 06/01/17 08/11/18 08/11/18 History Apixaban [Eliquis] 2.5 mg PO BID 06/01/17 08/11/18 07/25/18 History Tizanidine HCl [Zanaflex] 2 mg PO TID PRN 06/01/17 08/11/18 08/09/18 History Pantoprazole [Protonix TAB] 40 mg PO QDAY 30 Days tablet 06/04/17 08/11/1811/28 Rx Oxycodone HCl [OxyCONTIN ER TAB] 15 mg PO TID 07/23/17 08/11/18 08/11/18 History clonazePAM [KlonoPIN] 2 mg PO TID 07/23/17 08/11/18 08/10/18 History Naloxegol Oxalate [Movantik] 25 mg PO DAILY #30 07/26/17 07/28/18 07/22/17 Rx traMADol [Ultram 50 MG tab] 50 mg PO Q6HR PRN #15 tablet 04/27/18 07/28/18 Unknown Rx Calcium Acetate [Phoslo] 7 tab PO TID 07/28/18 08/11/18 08/10/18 History Prednisone [predniSONE 5 mg (6-Day 5 mg PO .TAPER 07/28/18 08/11/18 08/08/18 History Pack, 21 Tabs)] Active Medications Cefazolin Sodium (Ancef/Sterile Water 2 Gm/20 Ml) 2 gm IV PREOP NR Stop: 08/11/18 23:59 Hydromorphone HCl (Dilaudid) 0.5 mg IV Q10MIN PRN PRN Reason: Pain , Severe (7-10) Stop: 08/11/18 16:00 Sodium Chloride (Nacl 0.9% 1000 Ml) 1,000 mls @ 42 mls/hr IV DIRECT JEREMIAH Last Admin: 08/11/18 07:30 Dose: 42 mls/hr Ondansetron HCl (Zofran) 4 mg IV ONCE PRN PRN Reason: Nausea And Vomiting Stop: 08/11/18 16:00 - Brief post op/procedure progress note Date of procedure: 08/11/18 Pre-op diagnosis: prostate cancer Post-op diagnosis: same Procedure: robotic prostatectomy Anesthesia: LIV Surgeon: RONI RAO Latin Professor: CLAUDIA SANTIAGO Estimated blood loss: other (400cc) Pathology: list (prostate) Specimen disposition: to lab Condition: stable - Hospital course Hospital course: pt has abx & pain meds - Disposition Condition at discharge: Stable Disposition: [id number] TO HOME OR SELFCARE Short Stay Discharge Plan Follow up with: PRIMARY CARE, [Primary Care Provider] - 7 Days
[2018-08-11] MEDS ORDERED: NACL 0.9% 1000 ML 1,000 ML IV SCH (11:00)
[2018-08-11] MEDS ORDERED: NON-FORMULARY (Tizanidine Hcl [Zanaflex] 2 MG) PO PRN (11:03)
[2018-08-11] MEDS ORDERED: ULTRAM PO PRN (11:03)
[2018-08-11] MEDS ORDERED: PROAIR IH PRN (11:03)
[2018-08-11] MEDS: DILAUDID IV PRN ×7 (11:29→23:01)
[2018-08-11] MEDS: SUBLIMAZE IV PRN ×3 (12:47→13:15)
[2018-08-11] MEDS ORDERED: ZANAFLEX PO PRN (12:53)
[2018-08-11] MEDS ORDERED: PROVENTIL IH PRN (13:01)
--- NOTE | 2018-08-11 13:28 | Operative Report ---
PREOPERATIVE DIAGNOSIS: Prostate cancer, [place] 7 (psa 3.4). POSTOPERATIVE DIAGNOSIS: Prostate cancer, Ren[place] 7 (psa 3.4). PROCEDURE: Robotic-assisted laparoscopic prostatectomy. SURGEON: Samm Beltran MD MEAT GRADING MACHINE OPERATOR: Smith Lui. ANESTHESIA: General. ESTIMATED BLOOD LOSS: 400 mL. FLUIDS: Crystalloid, 150 mL Cell Saver, 2 units packed cells. DRAINS: Eduar-Lafleur drain x 1. COMPLICATIONS: No complications. INDICATIONS: This patient is a 48-year-old gentleman seen in the office by Dr. Bynum for prostatic nodule. He underwent biopsies and was found to have [place] 7 adenocarcinoma of the prostate. Dr. Bynum discussed the options. The patient was adamant. He wanted to have it surgically removed. He was seen by me in consultation, had previous gastric ulcer surgery, mentioned to the patient that puts him at risk for converting to an open procedure. He also has a history of renal failure, hypertension, and pulmonary disease, on anticoagulant. He was cleared by Nephrology, Dr. Daysi Barber and Dr. Bertrand Oconnell. DESCRIPTION OF PROCEDURE: The patient was taken to the operative suite and placed in the supine position. After adequate general anesthesia, he was prepped and draped in a sterile fashion and placed in a modified dorsal lithotomy position. Leon catheter was placed on the operative field. Also of note, the patient has an Ambicor penile prosthesis. However, he makes no urine. Leon catheter was placed without difficulty. A 1 cm supraumbilical incision was made with Bovie. Towel clips were placed. Anterior traction was used. Veress needle drop test was negative. Opening pressure was 4 cm of water. Insufflation to 15 cm of water was performed without difficulty. 15 cm cephalad to pubic symphysis in the midline was marked, additional 9 cm lateral was used to place the 8 mm robotic ports and a 12 mm helper port and a 5 mm helper port both on the right side. The camera port was placed in the midline using direct vision. No intraperitoneal injury could be appreciated. Panendoscopy was performed. There was very little scar tissue from his previous surgery. No signs of metastasis. The patient was then placed in an exaggerated Trendelenburg position. The posterior aspect of the bladder was placed on stretch. Second arch was scored exposing the seminal vesicles and vas deferens. Dissection to the apex of the prostate was performed without difficulty. Vas deferens was transected to allow removal. Next, attention was taken to the anterior abdominal wall, which was scored lateral to the lateral umbilical ligament. Pubic rami could be appreciated. Bladder flap was dropped. Endopelvic fascia was opened bilaterally. Dorsal vein complex was identified and dissected out. It was controlled with a 45 mm vascular stapler. The bladder neck was transected anteriorly exposing the Leon, which was deflated and used for anterior traction. Posterior aspect of the bladder neck was dissected. Seminal vesicles and vas deferens were pulled anteriorly exposing the lateral pedicles which were controlled with a 45 mm vascular stapler. The patient had a small arterial vessel on the left side wall. Several clips were placed for adequate control. The patient had a small amount of tedious bleeding at the dorsal vein complex. Rocío dust was placed there as well as posterior to the prostate. Dissection to the apex of the prostate was performed. The urethra distal to the prostate was transected. The prostate was dissected free and placed in an EndoCatch bag. Copious irrigation was performed. Adequate hemostasis was achieved. Bladder neck was reconstructed to allow passage of an 18-Gambian Leon catheter. Reconstruction was performed at the 7 o'clock and 5 o'clock positions using 2-0 Vicryl in an interrupted fashion. Double armed V-Loc stitch was placed at the bladder neck. At the corresponding aspect of the urethra, running stitch was performed bilaterally. An 18-Gambian Leon catheter was placed, 15 mL in the balloon. It was irrigated, no leak. V-Loc stitch was placed in the anterior abdominal wall as a bladder suspension. Platelet rich plasma and platelet poor plasma was injected at the area of the bladder neck as well as in the pelvis. Platelet rich membrane was also placed at the bladder neck. A 10 mm Eduar-Lafleur drain was placed, brought out through the left-sided port, which was removed. The patient was then placed in the supine position. Robotic cart was undocked. Supraumbilical incision was extended to remove the prostate without difficulty. The rectus fascia was closed with 2-0 Vicryl in interrupted fashion. Drain was secured to the skin with a 2-0 silk in an interrupted fashion. The skin was closed with 3-0 Monocryl in a subcuticular fashion. Leon catheter sideport was folded over and tied with 0 silk in interrupted fashion. The patient tolerated the procedure well. Smith Lui was present throughout the procedure to assist at the bedside with surgical dissection. He will be observed overnight and [facility]. JOB# [id number] ELOISE/VINCENT PEDRO
[2018-08-11 15:12] LABS: Hematocrit 31.6 % (35.5-45.6); Hemoglobin 10.5 gm/dl (11.8-15.2); Mean Corpuscular HGB Conc 33 % (32-34); Mean Corpuscular Hemoglobin 31 pg (28-32); Mean Corpuscular Volume 95 fl (84-94); Red Blood Count 3.34 M/mm3 (3.65-5.03)
[2018-08-11 15:26] LABS: Red Cell Distribution Width 21.1 % (13.2-15.2)
[2018-08-11 15:31] LABS: Calcium 6.7 mg/dL (8.4-10.2)
[2018-08-11 17:57] LABS: Basophils % (Manual) 0 % (0.0-1.8); Eosinophils % (Manual) 0 % (0.0-4.3); Total Cells Counted 100
[2018-08-11 17:58] LABS: Anisocytosis 1+; Ovalocytes 1+; Platelet Estimate Appears Decreased
[2018-08-11 17:59] LABS: Platelet Count 72 K/mm3 (140-440)
[2018-08-11] MEDS: ANCEF/NS 1 GM/50 ML 1 GM/50 ML BAG IV SCH (21:23)
[2018-08-12] MEDS: DILAUDID IV PRN ×5 (04:50→21:37)
[2018-08-12 05:06] LABS: Hematocrit 23.7 % (35.5-45.6); Hemoglobin 7.8 gm/dl (11.8-15.2); Mean Corpuscular HGB Conc 33 % (32-34); Mean Corpuscular Hemoglobin 31 pg (28-32); Mean Corpuscular Volume 96 fl (84-94); Red Blood Count 2.48 M/mm3 (3.65-5.03)
[2018-08-12 05:25] LABS: Platelet Count 54 K/mm3 (140-440); Red Cell Distribution Width 21.9 % (13.2-15.2)
[2018-08-12 05:26] LABS: Basophils % (Auto) 0.3 % (0.0-1.8); Eosinophils % (Auto) 0.9 % (0.0-4.3); Lymphocytes # (Auto) 0.6 K/mm3 (1.2-5.4); Lymphocytes % (Auto) 10.6 % (13.4-35.0); Monocytes # (Auto) 0.4 K/mm3 (0.0-0.8); Monocytes % (Auto) 7.6 % (0.0-7.3)
[2018-08-12 05:55] LABS: Calcium 5.1 mg/dL (8.4-10.2)
[2018-08-12] MEDS: ANCEF/NS 1 GM/50 ML 1 GM/50 ML BAG IV SCH (06:07)
--- NOTE | 2018-08-12 07:13 | History and Physical Report ---
History of Present Illness Date of examination: 08/11/18 Date of admission: 08/11/18 10:54 Chief complaint: S/p Robotic prostatectomy History of present illness: SENECA-CAYUGA S/p Robotic Prostatectomy----Postop doing well.No SOB etc Past History Past Medical History: atrial fib, ESRD, GERD, hypertension, other (Pulm HTN) Past Surgical History: Other (AV fistula Robotic Prostatectomy) Social history: lives with family, full code Family history: hypertension Medications and Allergies Allergies Allergy/AdvReac Type Severity Reaction Status Date / Time CARMEL Inhibitors Allergy LIPS Verified 07/28/18 12:45 SWELLING morphine Allergy ITCHING, Verified 07/28/18 12:45 RASH tetracycline [Tetracycline] Allergy Rash Verified 07/28/18 12:45 valsartan [From Diovan] Allergy SWELLING Verified 07/28/18 12:45 OF THROAT PLASTIC TAPE Allergy PULLS SKIN Uncoded 07/28/18 12:45 OFF Home Medications Medication Instructions Recorded Confirmed Last Taken Type Albuterol Sulfate [Proair Hfa] 1 puff INHALATION PRN PRN 02/28/16 08/11/1808/11 History Ambrisentan [Letairis] 10 mg PO DAILY 06/01/17 08/11/18 08/11/18 History Apixaban [Eliquis] 2.5 mg PO BID 06/01/17 08/11/18 07/25/18 History Tizanidine HCl [Zanaflex] 2 mg PO TID PRN 06/01/17 08/11/18 08/09/18 History Pantoprazole [Protonix TAB] 40 mg PO QDAY 30 Days tablet 06/04/17 08/11/1811/28 Rx Oxycodone HCl [OxyCONTIN ER TAB] 15 mg PO TID 07/23/17 08/11/18 08/11/18 History clonazePAM [KlonoPIN] 2 mg PO TID 07/23/17 08/11/18 08/10/18 History Naloxegol Oxalate [Movantik] 25 mg PO DAILY #30 07/26/17 07/28/18 07/22/17 Rx traMADol [Ultram 50 MG tab] 50 mg PO Q6HR PRN #15 tablet 04/27/18 07/28/18 Unknown Rx Calcium Acetate [Phoslo] 7 tab PO TID 07/28/18 08/11/18 08/10/18 History Prednisone [predniSONE 5 mg (6-Day 5 mg PO .TAPER 07/28/18 08/11/18 08/08/18 History Pack, 21 Tabs)] Active Meds: Active Medications Acetaminophen/Hydrocodone Bitart (Ridgely 5/325) 2 each PO Q4H PRN PRN Reason: Pain, Moderate (4-6) Albuterol (Proventil) 2.5 mg IH Q4HRT PRN PRN Reason: Shortness Of Breath Calcium Acetate (Phoslo) mg PO TID JEREMIAH Clonazepam (Klonopin) 2 mg PO TID JEREMIAH Last Admin: 08/12/18 00:47 Dose: 2 mg Fentanyl (Sublimaze) 50 mcg IV ONCE PRN PRN Reason: pain Last Admin: 08/11/18 13:15 Dose: 50 mcg Hydromorphone HCl (Dilaudid) 2 mg IV Q4H PRN PRN Reason: Pain , Severe (7-10) Last Admin: 08/12/18 04:50 Dose: 2 mg Sodium Chloride (Nacl 0.9% 1000 Ml) 1,000 mls @ 42 mls/hr IV DIRECT JEREMIAH Last Admin: 08/11/18 18:53 Dose: 42 mls/hr Miscellaneous Medication (Ambrisentan [Letairis]) 10 mg PO DAILY [facility] Miscellaneous Medication (Naloxegol Oxalate [Movantik]) 25 mg PO DAILY [facility] Miscellaneous Medication (Oxycodone Hcl [Oxycontin Er Tab]) 15 mg PO TID [facility] Naloxone HCl (Narcan 0.4 Mg/1 Ml) 0.1 mg IV Q2MIN PRN PRN Reason: Res Rate </= 8 or 02 SAT < 92% Ondansetron HCl (Zofran) 4 mg IV Q8H PRN PRN Reason: Nausea And Vomiting Pantoprazole Sodium (Protonix) 40 mg PO QDAY [facility] Tizanidine HCl (Zanaflex) 2 mg PO Q8H PRN PRN Reason: Muscle Spasm Last Admin: 08/11/18 21:27 Dose: 2 mg Tramadol HCl (Ultram) 50 mg PO Q6HR PRN PRN Reason: Pain, Moderate (4-6) Zolpidem Tartrate (Ambien) 5 mg PO QHS PRN PRN Reason: Sleep Review of Systems All systems: negative Exam - Constitutional Vitals: Temp Pulse Resp BP Pulse Ox 98.0 F 81 20 119/84 100 08/12/18 04:48 08/12/18 04:48 08/12/18 04:48 08/12/18 04:48 08/12/18 04:48 General appearance: Present: no acute distress, well-nourished - EENT Eyes: Present: PERRL ENT: hearing intact, clear oral mucosa - Neck Neck: Present: supple, normal ROM - Respiratory Respiratory effort: normal Respiratory: bilateral: CTA - Cardiovascular Heart rate: 78 Rhythm: irregularly irregular Heart Sounds: Present: S1 & S2. Absent: rub, click - Extremities Extremities: no ischemia, pulses intact, pulses symmetrical, No edema Peripheral Pulses: within normal limits - Abdominal General gastrointestinal: Present: soft, non-tender, non-distended, normal bowel sounds Male genitourinary: Present: normal - Integumentary Integumentary: Present: clear, warm, dry - Musculoskeletal Musculoskeletal: gait normal, strength equal bilaterally - Psychiatric Psychiatric: appropriate mood/affect, intact judgment & insight - Neurologic Neurologic: CNII-XII intact, moves all extremities - Allied Health Allied health notes reviewed: case management Results - Labs CBC & Chem 7: 08/12/18 04:30 08/12/18 04:30 Labs: Laboratory Last Values WBC 5.5 K/mm3 (4.5-11.0) 08/12/18 04:30 RBC 2.48 M/mm3 (3.65-5.03) L 08/12/18 04:30 Hgb 7.8 gm/dl (11.8-15.2) L 08/12/18 04:30 Hct 23.7 % (35.5-45.6) L D 08/12/18 04:30 MCV 96 fl (84-94) H 08/12/18 04:30 MCH 31 pg (28-32) 08/12/18 04:30 MCHC 33 % (32-34) 08/12/18 04:30 RDW 21.9 % (13.2-15.2) H 08/12/18 04:30 Plt Count 54 K/mm3 (140-440) L 08/12/18 04:30 Lymph % (Auto) 10.6 % (13.4-35.0) L 08/12/18 04:30 [place] % (Auto) 7.6 % (0.0-7.3) H 08/12/18 04:30 Eos % (Auto) 0.9 % (0.0-4.3) 08/12/18 04:30 Baso % (Auto) 0.3 % (0.0-1.8) 08/12/18 04:30 Lymph # 0.6 K/mm3 (1.2-5.4) L 08/12/18 04:30 [place] # 0.4 K/mm3 (0.0-0.8) 08/12/18 04:30 Eos # 0.0 K/mm3 (0.0-0.4) 08/12/18 04:30 Baso # 0.0 K/mm3 (0.0-0.1) 08/12/18 04:30 Add Manual Diff Complete 08/11/18 14:43 Total Counted 100 08/11/18 14:43 Seg Neutrophils % 80.6 % (40.0-70.0) H 08/12/18 04:30 Seg Neuts % (Manual) 88.0 % (40.0-70.0) H 08/11/18 14:43 Band Neutrophils % 0 % 08/11/18 14:43 Lymphocytes % (Manual) 10.0 % (13.4-35.0) L 08/11/18 14:43 Reactive Lymphs % (Man) 0 % 08/11/18 14:43 Monocytes % (Manual) 2.0 % (0.0-7.3) 08/11/18 14:43 Eosinophils % (Manual) 0 % (0.0-4.3) 08/11/18 14:43 Basophils % (Manual) 0 % (0.0-1.8) 08/11/18 14:43 Metamyelocytes % 0 % 08/11/18 14:43 Myelocytes % 0 % 08/11/18 14:43 Promyelocytes % 0 % 08/11/18 14:43 Blast Cells % 0 % 08/11/18 14:43 Nucleated RBC % Not Reportable 08/11/18 14:43 Seg Neutrophils # 4.4 K/mm3 (1.8-7.7) 08/12/18 04:30 Seg Neutrophils # Man 5.6 K/mm3 (1.8-7.7) 08/11/18 14:43 Band Neutrophils # 0.0 K/mm3 08/11/18 14:43 Lymphocytes # (Manual) 0.6 K/mm3 (1.2-5.4) L 08/11/18 14:43 Abs React Lymphs (Man) 0.0 K/mm3 08/11/18 14:43 Monocytes # (Manual) 0.1 K/mm3 (0.0-0.8) 08/11/18 14:43 Eosinophils # (Manual) 0.0 K/mm3 (0.0-0.4) 08/11/18 14:43 Basophils # (Manual) 0.0 K/mm3 (0.0-0.1) 08/11/18 14:43 Metamyelocytes # 0.0 K/mm3 08/11/18 14:43 Myelocytes # 0.0 K/mm3 08/11/18 14:43 Promyelocytes # 0.0 K/mm3 08/11/18 14:43 Blast Cells # 0.0 K/mm3 08/11/18 14:43 WBC Morphology Not Reportable 08/11/18 14:43 Hypersegmented Neuts Not Reportable 08/11/18 14:43 Hyposegmented Neuts Not Reportable 08/11/18 14:43 Hypogranular Neuts Not Reportable 08/11/18 14:43 Smudge Cells Not Reportable 08/11/18 14:43 Toxic Granulation Not Reportable 08/11/18 14:43 Toxic Vacuolation Not Reportable 08/11/18 14:43 Dohle Bodies Not Reportable 08/11/18 14:43 Pelger-Huet Anomaly Not Reportable 08/11/18 14:43 Flako Rods Not Reportable 08/11/18 14:43 Platelet Estimate Appears decreased 08/11/18 14:43 Clumped Platelets Not Reportable 08/11/18 14:43 Plt Clumps, EDTA Not Reportable 08/11/18 14:43 Large Platelets Not Reportable 08/11/18 14:43 Giant Platelets Not Reportable 08/11/18 14:43 Platelet Satelliting Not Reportable 08/11/18 14:43 Plt Morphology Comment Not Reportable 08/11/18 14:43 RBC Morphology Not Reportable 08/11/18 14:43 Dimorphic RBCs Not Reportable 08/11/18 14:43 Polychromasia Not Reportable 08/11/18 14:43 Hypochromasia Not Reportable 08/11/18 14:43 Poikilocytosis Not Reportable 08/11/18 14:43 Anisocytosis 1+ 08/11/18 14:43 Microcytosis Not Reportable 08/11/18 14:43 Macrocytosis Not Reportable 08/11/18 14:43 Spherocytes Not Reportable 08/11/18 14:43 Pappenheimer Bodies Not Reportable 08/11/18 14:43 Sickle Cells Not Reportable 08/11/18 14:43 Target Cells Not Reportable 08/11/18 14:43 Tear Drop Cells Not Reportable 08/11/18 14:43 Ovalocytes 1+ 08/11/18 14:43 Helmet Cells Not Reportable 08/11/18 14:43 Kevin-[place] Bodies Not Reportable 08/11/18 14:43 Otho Rings Not Reportable 08/11/18 14:43 Nell Cells Not Reportable 08/11/18 14:43 Bite Cells Not Reportable 08/11/18 14:43 Crenated Cell Not Reportable 08/11/18 14:43 Elliptocytes Not Reportable 08/11/18 14:43 Acanthocytes (Spur) Not Reportable 08/11/18 14:43 Rouleaux Not Reportable 08/11/18 14:43 Hemoglobin C Crystals Not Reportable 08/11/18 14:43 Schistocytes Not Reportable 08/11/18 14:43 Malaria parasites Not Reportable 08/11/18 14:43 Cristhian Bodies Not Reportable 08/11/18 14:43 Hem Pathologist Commnt No 08/11/18 14:43 PT 15.3 Sec. (12.2-14.9) H 08/11/18 08:00 INR 1.15 (0.87-1.13) H 08/11/18 08:00 APTT 30.5 Sec. (24.2-36.6) 08/11/18 08:00 Sodium 144 mmol/L (137-145) 08/12/18 04:30 Potassium 3.5 mmol/L (3.6-5.0) L 08/12/18 04:30 Chloride 109.1 mmol/L (98-107) H 08/12/18 04:30 Carbon Dioxide 21 mmol/L (22-30) L 08/12/18 04:30 Anion Gap 17 mmol/L 08/12/18 04:30 BUN 54 mg/dL (9-20) H 08/12/18 04:30 Creatinine 10.9 mg/dL (0.8-1.5) H 08/12/18 04:30 Estimated GFR 6 ml/min 08/12/18 04:30 BUN/Creatinine Ratio 5 % 08/12/18 04:30 Glucose 104 mg/dL (75-100) H 08/12/18 04:30 Calcium 5.1 mg/dL (8.4-10.2) L* D 08/12/18 04:30 Total Bilirubin 0.80 mg/dL (0.1-1.2) 08/11/18 07:00 AST 25 units/L (5-40) 08/11/18 07:00 ALT 23 units/L (7-56) 08/11/18 07:00 Alkaline Phosphatase 131 units/L (35-129) H 08/11/18 07:00 Total Protein 6.5 g/dL (6.3-8.2) 08/11/18 07:00 Albumin 3.9 g/dL (3.9-5) 08/11/18 07:00 Albumin/Globulin Ratio 1.5 % 08/11/18 07:00 Blood Type O POSITIVE 08/11/18 07:00 Antibody Screen Negative 08/11/18 07:00 Crossmatch See Detail 08/11/18 07:00 - Imaging and Cardiology EKG: report reviewed Assessment and Plan Advance Directives: Yes (Full code) VTE prophylaxis?: Chemical Plan of care discussed with patient/family: Yes - Patient Problems (1) Atrial fibrillation Current Visit: No Status: Chronic Qualifiers: Atrial fibrillation type: chronic Qualified Code(s): I48.2 - Chronic atrial fibrillation Plan to address problem: Patient on Eliquis.On Hold for now.To resume after discharge. (2) ESRD needing dialysis Current Visit: No Status: Chronic Plan to address problem: Patient does his own HD.Due on Wed (3) HTN (hypertension) Current Visit: Yes Status: Chronic Qualifiers: Hypertension type: essential hypertension Qualified Code(s): I10 - Essential (primary) hypertension Plan to address problem: COnt antihypertensives (4) Pulmonary HTN Current Visit: Yes Status: Chronic Plan to address problem: On Letairis (5) JANNETTE (generalized anxiety disorder) Current Visit: Yes Status: Chronic Plan to address problem: Cont anxiolytics (6) GERD (gastroesophageal reflux disease) Current Visit: Yes Status: Chronic Qualifiers: Esophagitis presence: without esophagitis Qualified Code(s): K21.9 - Gastro -esophageal reflux disease without esophagitis Plan to address problem: Cont PPI's (7) Asthma Current Visit: Yes Status: Chronic Plan to address problem: COnt Bronchodilators (8) DVT prophylaxis Current Visit: No Status: Acute Plan to address problem: SCD's for now
--- NOTE | 2018-08-12 07:46 | Progress Note ---
Subjective Date of service: 08/12/18 Interval history: robotic prostatectomy 08-11-18 renal failure on dialysis anemia Hb7.8 - this am / plts 85k----now 54K ectopy on tracing overnight will observe in hospital tonight ?home in am recheck cbc at noon Objective - Constitutional Vitals: Vital Signs - 12hr 08/12/18 08/12/18 08/12/18 00:12 00:37 04:48 Temperature 98.2 F 98.0 F Pulse Rate 81 81 Respiratory 20 20 Rate Blood Pressure 79/40 115/76 119/84 O2 Sat by Pulse 95 100 Oximetry - Labs CBC & Chem 7: 08/12/18 04:30 08/12/18 04:30 Labs: Abnormal lab results 08/11/18 08/11/18 08/11/18 Range/Units 07:00 07:00 08:00 RBC (3.65-5.03) M/mm3 Hgb (11.8-15.2) gm/dl Hct (35.5-45.6) % MCV (84-94) fl RDW (13.2-15.2) % Plt Count (140-440) K/mm3 Lymph % (Auto) (13.4-35.0) % [place] % (Auto) (0.0-7.3) % Lymph # (1.2-5.4) K/mm3 Seg Neutrophils % (40.0-70.0) % Seg Neuts % (Manual) (40.0-70.0) % Lymphocytes % (Manual) (13.4-35.0) % Lymphocytes # (Manual) (1.2-5.4) K/mm3 PT 15.3 H (12.2-14.9) Sec. INR 1.15 H (0.87-1.13) Potassium 3.4 L (3.6-5.0) mmol/L Chloride 96.2 L (98-107) mmol/L Carbon Dioxide (22-30) mmol/L BUN 55 H (9-20) mg/dL Creatinine 12.1 H (0.8-1.5) mg/dL Glucose 73 L (75-100) mg/dL Calcium 6.9 L (8.4-10.2) mg/dL Alkaline Phosphatase 131 H (35-129) units/L Crossmatch See Detail 08/11/18 08/11/18 08/12/18 Range/Units 14:43 14:43 04:30 RBC 3.34 L 2.48 L (3.65-5.03) M/mm3 Hgb 10.5 L 7.8 L (11.8-15.2) gm/dl Hct 31.6 L 23.7 L D (35.5-45.6) % MCV 95 H 96 H (84-94) fl RDW 21.1 H 21.9 H (13.2-15.2) % Plt Count 72 L 54 L (140-440) K/mm3 Lymph % (Auto) 10.6 L (13.4-35.0) % [place] % (Auto) 7.6 H (0.0-7.3) % Lymph # 0.6 L (1.2-5.4) K/mm3 Seg Neutrophils % 80.6 H (40.0-70.0) % Seg Neuts % (Manual) 88.0 H (40.0-70.0) % Lymphocytes % (Manual) 10.0 L (13.4-35.0) % Lymphocytes # (Manual) 0.6 L (1.2-5.4) K/mm3 PT (12.2-14.9) Sec. INR (0.87-1.13) Potassium (3.6-5.0) mmol/L Chloride 95.2 L (98-107) mmol/L Carbon Dioxide (22-30) mmol/L BUN 57 H (9-20) mg/dL Creatinine 12.6 H (0.8-1.5) mg/dL Glucose 110 H (75-100) mg/dL Calcium 6.7 L (8.4-10.2) mg/dL Alkaline Phosphatase (35-129) units/L Crossmatch 08/12/18 Range/Units 04:30 RBC (3.65-5.03) M/mm3 Hgb (11.8-15.2) gm/dl Hct (35.5-45.6) % MCV (84-94) fl RDW (13.2-15.2) % Plt Count (140-440) K/mm3 Lymph % (Auto) (13.4-35.0) % [place] % (Auto) (0.0-7.3) % Lymph # (1.2-5.4) K/mm3 Seg Neutrophils % (40.0-70.0) % Seg Neuts % (Manual) (40.0-70.0) % Lymphocytes % (Manual) (13.4-35.0) % Lymphocytes # (Manual) (1.2-5.4) K/mm3 PT (12.2-14.9) Sec. INR (0.87-1.13) Potassium 3.5 L (3.6-5.0) mmol/L Chloride 109.1 H (98-107) mmol/L Carbon Dioxide 21 L (22-30) mmol/L BUN 54 H (9-20) mg/dL Creatinine 10.9 H (0.8-1.5) mg/dL Glucose 104 H (75-100) mg/dL Calcium 5.1 L* D (8.4-10.2) mg/dL Alkaline Phosphatase (35-129) units/L Crossmatch
[2018-08-12] MEDS ORDERED: NON-FORMULARY (Naloxegol Oxalate [Movantik] 25 MG) PO SCH (10:00)
--- NOTE | 2018-08-12 10:51 | Consultation ---
History of Present Illness - Reason for Consult Consult date: 08/12/18 end stage renal disease Requesting physician: RONI RAO - History of Present Illness CANTWELL S/p Robotic Prostatectomy----Postop doing well.No SOB etc, currently on home hemo followed by Dr. Barber Past History Past Medical History: atrial fib, ESRD, GERD, hypertension, other (Pulm HTN) Past Surgical History: Other (AV fistula Robotic Prostatectomy) Social history: lives with family, full code Family history: hypertension Review of Systems All systems: negative Past History Past Medical History: atrial fib, ESRD, GERD, hypertension, other (Pulm HTN) Past Surgical History: Other (AV fistula Robotic Prostatectomy) Social history: lives with family, full code Family history: hypertension Medications and Allergies Allergies Allergy/AdvReac Type Severity Reaction Status Date / Time CARMEL Inhibitors Allergy LIPS Verified 07/28/18 12:45 SWELLING morphine Allergy ITCHING, Verified 07/28/18 12:45 RASH tetracycline [Tetracycline] Allergy Rash Verified 07/28/18 12:45 valsartan [From Diovan] Allergy SWELLING Verified 07/28/18 12:45 OF THROAT PLASTIC TAPE Allergy PULLS SKIN Uncoded 07/28/18 12:45 OFF Home Medications Medication Instructions Recorded Confirmed Last Taken Type Albuterol Sulfate [Proair Hfa] 1 puff INHALATION PRN PRN 02/28/16 08/11/1808/11 History Ambrisentan [Letairis] 10 mg PO DAILY 06/01/17 08/11/18 08/11/18 History Apixaban [Eliquis] 2.5 mg PO BID 06/01/17 08/11/18 07/25/18 History Tizanidine HCl [Zanaflex] 2 mg PO TID PRN 06/01/17 08/11/18 08/09/18 History Pantoprazole [Protonix TAB] 40 mg PO QDAY 30 Days tablet 06/04/17 08/11/1811/28 Rx Oxycodone HCl [OxyCONTIN ER TAB] 15 mg PO TID 07/23/17 08/11/18 08/11/18 History clonazePAM [KlonoPIN] 2 mg PO TID 07/23/17 08/11/18 08/10/18 History Naloxegol Oxalate [Movantik] 25 mg PO DAILY #30 07/26/17 07/28/18 07/22/17 Rx traMADol [Ultram 50 MG tab] 50 mg PO Q6HR PRN #15 tablet 04/27/18 07/28/18 Unknown Rx Calcium Acetate [Phoslo] 7 tab PO TID 07/28/18 08/11/18 08/10/18 History Prednisone [predniSONE 5 mg (6-Day 5 mg PO .TAPER 07/28/18 08/11/18 08/08/18 History Pack, 21 Tabs)] Active Meds: Active Medications Acetaminophen/Hydrocodone Bitart ([place] 5/325) 2 each PO Q4H PRN PRN Reason: Pain, Moderate (4-6) Albuterol (Proventil) 2.5 mg IH Q4HRT PRN PRN Reason: Shortness Of Breath Calcium Acetate (Phoslo) mg PO TID JEREMIAH Clonazepam (Klonopin) 2 mg PO TID JEREMIAH Last Admin: 08/12/18 09:06 Dose: 2 mg Fentanyl (Sublimaze) 50 mcg IV ONCE PRN PRN Reason: pain Last Admin: 08/11/18 13:15 Dose: 50 mcg Hydromorphone HCl (Dilaudid) 2 mg IV Q4H PRN PRN Reason: Pain , Severe (7-10) Last Admin: 08/12/18 09:12 Dose: 2 mg Sodium Chloride (Nacl 0.9% 1000 Ml) 1,000 mls @ 42 mls/hr IV DIRECT JEREMIAH Last Admin: 08/11/18 18:53 Dose: 42 mls/hr Calcium Gluconate 2,000 mg/ (Sodium Chloride) 120 mls @ 660 mls/hr IV ONCE ONE Stop: 08/12/18 10:25 Miscellaneous Medication (Ambrisentan [Letairis]) 10 mg PO DAILY [facility] Miscellaneous Medication (Naloxegol Oxalate [Movantik]) 25 mg PO DAILY [facility] Naloxone HCl (Narcan 0.4 Mg/1 Ml) 0.1 mg IV Q2MIN PRN PRN Reason: Res Rate </= 8 or 02 SAT < 92% Ondansetron HCl (Zofran) 4 mg IV Q8H PRN PRN Reason: Nausea And Vomiting Oxycodone HCl (Oxycontin) 15 mg PO TID JEREMIAH Pantoprazole Sodium (Protonix) 40 mg PO QDAY JEREMIAH Tizanidine HCl (Zanaflex) 2 mg PO Q8H PRN PRN Reason: Muscle Spasm Last Admin: 08/11/18 21:27 Dose: 2 mg Tramadol HCl (Ultram) 50 mg PO Q6HR PRN PRN Reason: Pain, Moderate (4-6) Zolpidem Tartrate (Ambien) 5 mg PO QHS PRN PRN Reason: Sleep Exam - Vital Signs Vital signs: Vital Signs Temp Pulse Resp BP 97.8 F 72 20 110/60 07/30/18 12:09 07/30/18 12:07/30/18 12:07/30/18 12:09 - Physical Exam Narrative exam: General appearance: Present: no acute distress, well-nourished - EENT Eyes: Present: PERRL ENT: hearing intact, clear oral mucosa - Neck Neck: Present: supple, normal ROM - Respiratory Respiratory effort: normal Respiratory: bilateral: CTA - Cardiovascular Heart rate: 78 Rhythm: irregularly irregular Heart Sounds: Present: S1 & S2. Absent: rub, click - Extremities Extremities: no ischemia, pulses intact, pulses symmetrical, No edema Peripheral Pulses: within normal limits - Abdominal General gastrointestinal: Present: soft, non-tender, non-distended, normal bowel sounds Male genitourinary: Present: normal - Integumentary Integumentary: Present: clear, warm, dry - Musculoskeletal Musculoskeletal: gait normal, strength equal bilaterally - Psychiatric Psychiatric: appropriate mood/affect, intact judgment & insight - Neurologic Neurologic: CNII-XII intact, moves all extremities - Allied Health Allied health notes reviewed: case management Results - Lab Results 08/12/18 04:30 08/12/18 04:30 Most recent lab results Calcium 5.1 mg/dL (8.4-10.2) L* D 08/12/18 04:30 Assessment and Plan Impression: * ESRD * Prostate cancer--s/p Rad prostecomy * Anemia in ESRD * HTN Plan: * HD q tthsat * uf as tolerated * no heparin with hd * epogen per protocol * ok to dc from renal standpoint
[2018-08-12] MEDS ORDERED: NACL 0.9% 100 ML IV PRN (10:54)
[2018-08-12] MEDS: PROTONIX PO SCH (10:56)
[2018-08-12] MEDS ORDERED: CALCIUM GLUCONATE 2,000 MG in NACL 0.9% 100 ML IV ONE (11:00)
[2018-08-12] MEDS ORDERED: OxyCONTIN PO SCH (14:00)
[2018-08-12 14:21] LABS: Basophils % (Auto) 0.4 % (0.0-1.8); Eosinophils # (Auto) 0.1 K/mm3 (0.0-0.4); Eosinophils % (Auto) 1.9 % (0.0-4.3); Hematocrit 26.3 % (35.5-45.6); Hemoglobin 8.8 gm/dl (11.8-15.2); Lymphocytes # (Auto) 0.6 K/mm3 (1.2-5.4); Lymphocytes % (Auto) 9.7 % (13.4-35.0); Mean Corpuscular HGB Conc 34 % (32-34); Mean Corpuscular Hemoglobin 31 pg (28-32); Mean Corpuscular Volume 93 fl (84-94); Monocytes # (Auto) 0.4 K/mm3 (0.0-0.8); Monocytes % (Auto) 6.9 % (0.0-7.3); Red Blood Count 2.82 M/mm3 (3.65-5.03)
[2018-08-12 14:25] LABS: Calcium 7.8 mg/dL (8.4-10.2); Platelet Count 70 K/mm3 (140-440); Red Cell Distribution Width 21.3 % (13.2-15.2)
[2018-08-12 14:29] LABS: % Iron Saturation 23.13 %
[2018-08-12] MEDS ORDERED: NACL 0.9 (PRIMING MACHINE ONLY DIALYSIS) MC ONE ×2 (15:23→16:46)
[2018-08-12] MEDS: ROXICODONE PO SCH ×2 (16:46→21:49)
[2018-08-12] MEDS: PHOSLO PO SCH ×5 (17:08→21:50)
[2018-08-12] MEDS: TUMS PO SCH ×2 (17:15→21:38)
[2018-08-12] MEDS: NON-FORMULARY (Ambrisentan [Letairis] 10 MG) PO SCH (17:15)
--- NOTE | 2018-08-12 17:38 | Event Note ---
Date: 08/12/18 5:30pm pt resting in bed feels better blood in golden - normal Hb 8.8/ plts 70k re eval in am pt to also f/u with his pain mgmt doctor
[2018-08-12] MEDS: OXYCODONE HCL 15 MG PO SCH ×2 (19:41→19:46)
[2018-08-13] MEDS: DILAUDID IV PRN ×3 (03:13→15:07)
[2018-08-13] MEDS: ROXICODONE PO SCH ×2 (05:22→13:27)
[2018-08-13 05:56] LABS: Basophils % (Auto) 0.4 % (0.0-1.8); Eosinophils # (Auto) 0.2 K/mm3 (0.0-0.4); Eosinophils % (Auto) 2.8 % (0.0-4.3); Hematocrit 28.6 % (35.5-45.6); Hemoglobin 9.5 gm/dl (11.8-15.2); Lymphocytes # (Auto) 0.9 K/mm3 (1.2-5.4); Lymphocytes % (Auto) 14.4 % (13.4-35.0); Mean Corpuscular HGB Conc 33 % (32-34); Mean Corpuscular Hemoglobin 31 pg (28-32); Mean Corpuscular Volume 94 fl (84-94); Monocytes # (Auto) 0.6 K/mm3 (0.0-0.8); Monocytes % (Auto) 9.6 % (0.0-7.3); Red Blood Count 3.05 M/mm3 (3.65-5.03)
[2018-08-13 06:04] LABS: Platelet Count 74 K/mm3 (140-440)
[2018-08-13 06:15] LABS: Calcium 8.3 mg/dL (8.4-10.2)
--- NOTE | 2018-08-13 07:43 | Progress Note ---
Assessment and Plan - Patient Problems (1) Atrial fibrillation Current Visit: No Status: Chronic Qualifiers: Atrial fibrillation type: chronic Qualified Code(s): I48.2 - Chronic atrial fibrillation Plan to address problem: Patient on Eliquis.On Hold for now.To resume after discharge. (2) ESRD needing dialysis Current Visit: No Status: Chronic Plan to address problem: Patient does his own HD.Due on Sat (3) HTN (hypertension) Current Visit: Yes Status: Chronic Qualifiers: Hypertension type: essential hypertension Qualified Code(s): I10 - Essential (primary) hypertension Plan to address problem: COnt antihypertensives (4) Pulmonary HTN Current Visit: Yes Status: Chronic Plan to address problem: On Letairis (5) JANNETTE (generalized anxiety disorder) Current Visit: Yes Status: Chronic Plan to address problem: Cont anxiolytics (6) GERD (gastroesophageal reflux disease) Current Visit: Yes Status: Chronic Qualifiers: Esophagitis presence: without esophagitis Qualified Code(s): K21.9 - Gastro -esophageal reflux disease without esophagitis Plan to address problem: Cont PPI's (7) Asthma Current Visit: Yes Status: Chronic Plan to address problem: COnt Bronchodilators (8) Thrombocytopenia Current Visit: Yes Status: Acute Plan to address problem: Will repeat [place] [address] (9) DVT prophylaxis Current Visit: No Status: Acute Plan to address problem: SCD's for now Subjective Date of service: 08/12/18 Principal diagnosis: S/p Robotic Prostatectomy Interval history: Post op patint doing well No SOB etc Objective - Constitutional Vitals: Vital Signs - 12hr 08/12/18 08/12/18 08/12/18 19:44 20:37 23:21 Temperature 99.4 F Pulse Rate 100 H 99 H Respiratory 17 Rate Blood Pressure 93/59 O2 Sat by Pulse 96 97 96 Oximetry 08/12/18 08/13/18 23:22 05:11 Temperature 98.1 F Pulse Rate 110 H 115 H Respiratory 18 Rate Blood Pressure 142/92 O2 Sat by Pulse 96 100 Oximetry General appearance: Present: no acute distress, well-nourished - EENT Eyes: PERRL, EOM intact ENT: hearing intact, clear oral mucosa Ears: bilateral: normal - Neck Neck: supple, normal ROM - Respiratory Respiratory effort: normal Respiratory: bilateral: CTA - Breasts Breasts: normal - Cardiovascular Heart rate: 78 Rhythm: regular Heart Sounds: Present: S1 & S2. Absent: gallop, rub Extremities: pulses intact, No edema, normal color, Full ROM - Gastrointestinal General gastrointestinal: Present: soft, non-tender, non-distended, normal bowel sounds - Genitourinary Male genitourinary: normal - Integumentary Integumentary: clear, warm, dry - Musculoskeletal Musculoskeletal: 1, strength equal bilaterally - Neurologic Neurologic: moves all extremities - Psychiatric Psychiatric: memory intact, appropriate mood/affect, intact judgment & insight - Allied health notes Allied health notes reviewed: nursing, case management - Labs CBC & Chem 7: 08/13/18 05:36 08/13/18 05:36 Labs: Abnormal lab results 08/11/18 08/12/18 08/12/18 Range/Units 07:00 14:06 14:06 RBC 2.82 L (3.65-5.03) M/mm3 Hgb 8.8 L (11.8-15.2) gm/dl Hct 26.3 L (35.5-45.6) % RDW 21.3 H (13.2-15.2) % Plt Count 70 L (140-440) K/mm3 Lymph % (Auto) 9.7 L (13.4-35.0) % Cloud % (Auto) (0.0-7.3) % Lymph # 0.6 L (1.2-5.4) K/mm3 Seg Neutrophils % 81.1 H (40.0-70.0) % BUN 37 H (9-20) mg/dL Creatinine 8.3 H (0.8-1.5) mg/dL Glucose 122 H (75-100) mg/dL Calcium 7.8 L D (8.4-10.2) mg/dL Iron (49-181) ug/dL TIBC (250-450) mcg/dL Transferrin (180-329) mg/dl Ferritin (13.0-400.0) ng/mL Albumin (3.9-5) g/dL PTH Intact (15-65) pg/mL Crossmatch See Detail 08/12/18 08/12/18 08/12/18 Range/Units 14:06 14:06 14:06 RBC (3.65-5.03) M/mm3 Hgb (11.8-15.2) gm/dl Hct (35.5-45.6) % RDW (13.2-15.2) % Plt Count (140-440) K/mm3 Lymph % (Auto) (13.4-35.0) % Cloud % (Auto) (0.0-7.3) % Lymph # (1.2-5.4) K/mm3 Seg Neutrophils % (40.0-70.0) % BUN (9-20) mg/dL Creatinine (0.8-1.5) mg/dL Glucose (75-100) mg/dL Calcium (8.4-10.2) mg/dL Iron 34 L (49-181) ug/dL TIBC 147 L (250-450) mcg/dL Transferrin 127 L (180-329) mg/dl Ferritin 411.3 H (13.0-400.0) ng/mL Albumin (3.9-5) g/dL PTH Intact 75.49 H (15-65) pg/mL Crossmatch 08/12/18 08/12/18 08/13/18 Range/Units 19:20 19:38 05:36 RBC 3.05 L (3.65-5.03) M/mm3 Hgb 9.5 L (11.8-15.2) gm/dl Hct 28.6 L (35.5-45.6) % RDW 21.0 H (13.2-15.2) % Plt Count 74 L (140-440) K/mm3 Lymph % (Auto) (13.4-35.0) % Cloud % (Auto) 9.6 H (0.0-7.3) % Lymph # 0.9 L (1.2-5.4) K/mm3 Seg Neutrophils % 72.8 H (40.0-70.0) % BUN (9-20) mg/dL Creatinine (0.8-1.5) mg/dL Glucose (75-100) mg/dL Calcium 8.1 L (8.4-10.2) mg/dL Iron (49-181) ug/dL TIBC (250-450) mcg/dL Transferrin (180-329) mg/dl Ferritin (13.0-400.0) ng/mL Albumin 3.4 L (3.9-5) g/dL PTH Intact (15-65) pg/mL Crossmatch 08/13/18 Range/Units 05:36 RBC (3.65-5.03) M/mm3 Hgb (11.8-15.2) gm/dl Hct (35.5-45.6) % RDW (13.2-15.2) % Plt Count (140-440) K/mm3 Lymph % (Auto) (13.4-35.0) % Cloud % (Auto) (0.0-7.3) % Lymph # (1.2-5.4) K/mm3 Seg Neutrophils % (40.0-70.0) % BUN 34 H (9-20) mg/dL Creatinine 9.0 H (0.8-1.5) mg/dL Glucose (75-100) mg/dL Calcium 8.3 L (8.4-10.2) mg/dL Iron (49-181) ug/dL TIBC (250-450) mcg/dL Transferrin (180-329) mg/dl Ferritin (13.0-400.0) ng/mL Albumin (3.9-5) g/dL PTH Intact (15-65) pg/mL Crossmatch Short CBC 08/12/18 08/13/18 Range/Units 14:06 05:36 WBC 6.2 6.0 (4.5-11.0) K/mm3 Hgb 8.8 L 9.5 L (11.8-15.2) gm/dl Hct 26.3 L 28.6 L (35.5-45.6) % Plt Count 70 L 74 L (140-440) K/mm3 BMP 08/12/18 08/12/18 08/13/18 14:06 19:38 05:36 Sodium 138 141 Potassium 3.6 4.0 Chloride 99.4 100.0 Carbon Dioxide 26 26 BUN 37 H 34 H Creatinine 8.3 H 9.0 H Glucose 122 H 97 Calcium 7.8 L D 8.1 L 8.3 L Liver Function 08/12/18 Range/Units 19:20 Albumin 3.4 L (3.9-5) g/dL
[2018-08-13] MEDS ORDERED: DULCOLAX PR NR (09:00)
--- NOTE | 2018-08-13 10:21 | Progress Note ---
Assessment and Plan Impression: * ESRD * Prostate cancer--s/p Rad prostecomy * Anemia in ESRD * HTN * hypocalcemia * thrombocytopenia Plan: * HD q tthsat * uf as tolerated * tums po * plts noted--no heparin with hd, needs HitAB check as outpatient * no heparin with hd * epogen per protocol * ok to dc from renal standpoint Subjective Date of service: 08/13/18 Principal diagnosis: S/p Robotic Prostatectomy Interval history: resting in bed today Objective - Exam Narrative Exam: General appearance: Present: no acute distress, well-nourished - EENT Eyes: Present: PERRL ENT: hearing intact, clear oral mucosa - Neck Neck: Present: supple, normal ROM - Respiratory Respiratory effort: normal Respiratory: bilateral: CTA - Cardiovascular Heart rate: 78 Rhythm: irregularly irregular Heart Sounds: Present: S1 & S2. Absent: rub, click - Extremities Extremities: no ischemia, pulses intact, pulses symmetrical, No edema Peripheral Pulses: within normal limits - Abdominal General gastrointestinal: Present: soft, non-tender, non-distended, normal bowel sounds Male genitourinary: Present: normal - Integumentary Integumentary: Present: clear, warm, dry - Musculoskeletal Musculoskeletal: gait normal, strength equal bilaterally - Psychiatric Psychiatric: appropriate mood/affect, intact judgment & insight - Neurologic Neurologic: CNII-XII intact, moves all extremities - Allied Health Allied health notes reviewed: case management - Vital Signs Vital signs: Vital Signs - 12hr 08/12/18 08/12/18 08/13/18 23:21 23:22 05:11 Temperature 99.4 F 98.1 F Pulse Rate 99 H 110 H 115 H Respiratory 17 18 Rate Blood Pressure 93/59 142/92 Blood Pressure [Left] O2 Sat by Pulse 96 96 100 Oximetry 08/13/18 07:15 Temperature 98.5 F Pulse Rate 110 H Respiratory 18 Rate Blood Pressure Blood Pressure 103/60 [Left] O2 Sat by Pulse 98 Oximetry - Lab 08/13/18 05:36 08/13/18 05:36 Most recent lab results Calcium 8.3 mg/dL (8.4-10.2) L 08/13/18 05:36 Magnesium 1.80 mg/dL (1.7-2.3) 08/12/18 14:06
[2018-08-13] MEDS: PROTONIX PO SCH (10:36)
[2018-08-13] MEDS: TUMS PO SCH ×2 (10:37→13:36)
[2018-08-13] MEDS: PHOSLO PO SCH ×2 (10:38→13:34)
[2018-08-13] MEDS: NON-FORMULARY (Ambrisentan [Letairis] 10 MG) PO SCH (13:34)
--- NOTE | 2018-08-13 16:12 | Progress Note ---
Assessment and Plan - Patient Problems (1) Atrial fibrillation Current Visit: No Status: Chronic Qualifiers: Atrial fibrillation type: chronic Qualified Code(s): I48.2 - Chronic atrial fibrillation Plan to address problem: Patient on Eliquis.On Hold for now.To resume after discharge. (2) ESRD needing dialysis Current Visit: No Status: Chronic Plan to address problem: Patient does his own HD.Due on Sat (3) HTN (hypertension) Current Visit: Yes Status: Chronic Qualifiers: Hypertension type: essential hypertension Qualified Code(s): I10 - Essential (primary) hypertension Plan to address problem: COnt antihypertensives (4) Pulmonary HTN Current Visit: Yes Status: Chronic Plan to address problem: On Letairis (5) JANNETTE (generalized anxiety disorder) Current Visit: Yes Status: Chronic Plan to address problem: Cont anxiolytics (6) GERD (gastroesophageal reflux disease) Current Visit: Yes Status: Chronic Qualifiers: Esophagitis presence: without esophagitis Qualified Code(s): K21.9 - Gastro -esophageal reflux disease without esophagitis Plan to address problem: Cont PPI's (7) Asthma Current Visit: Yes Status: Chronic Plan to address problem: COnt Bronchodilators (8) Thrombocytopenia Current Visit: Yes Status: Acute Plan to address problem: Will repeat [place] [address] No Heparin with HD HIT w/u if necessary as outpatient (9) DVT prophylaxis Current Visit: No Status: Acute Plan to address problem: SCD's for now Subjective Date of service: 08/13/18 Principal diagnosis: S/p Robotic Prostatectomy Interval history: Post op patint doing well No SOB etc Objective - Constitutional Vitals: Vital Signs - 12hr 08/13/18 08/13/18 08/13/18 05:11 07:15 10:45 Temperature 98.1 F 98.5 F Pulse Rate 115 H 110 H Respiratory 18 18 20 Rate Blood Pressure 142/92 Blood Pressure 103/60 [Left] O2 Sat by Pulse 100 98 Oximetry 08/13/18 08/13/18 08/13/18 11:15 11:46 13:27 Temperature 99.1 F Pulse Rate 103 H Respiratory 20 20 20 Rate Blood Pressure Blood Pressure 113/70 [Left] O2 Sat by Pulse 100 Oximetry 08/13/18 08/13/18 14:27 15:07 Temperature Pulse Rate Respiratory 20 20 Rate Blood Pressure Blood Pressure [Left] O2 Sat by Pulse Oximetry General appearance: Present: no acute distress, well-nourished - EENT Eyes: PERRL, EOM intact ENT: hearing intact, clear oral mucosa Ears: bilateral: normal - Neck Neck: supple, normal ROM - Respiratory Respiratory effort: normal Respiratory: bilateral: CTA - Breasts Breasts: normal - Cardiovascular Rhythm: regular Heart Sounds: Present: S1 & S2. Absent: gallop, rub Extremities: pulses intact, No edema, normal color, Full ROM - Gastrointestinal General gastrointestinal: Present: soft, non-tender, non-distended, normal bowel sounds - Genitourinary Male genitourinary: normal - Integumentary Integumentary: clear, warm, dry - Musculoskeletal Musculoskeletal: 1, strength equal bilaterally - Neurologic Neurologic: moves all extremities - Psychiatric Psychiatric: memory intact, appropriate mood/affect, intact judgment & insight - Allied health notes Allied health notes reviewed: nursing, case management - Labs CBC & Chem 7: 08/13/18 05:36 08/13/18 05:36 Labs: Abnormal lab results 08/12/18 08/12/18 08/13/18 Range/Units 19:20 19:38 05:36 RBC 3.05 L (3.65-5.03) M/mm3 Hgb 9.5 L (11.8-15.2) gm/dl Hct 28.6 L (35.5-45.6) % RDW 21.0 H (13.2-15.2) % Plt Count 74 L (140-440) K/mm3 [place] % (Auto) 9.6 H (0.0-7.3) % Lymph # 0.9 L (1.2-5.4) K/mm3 Seg Neutrophils % 72.8 H (40.0-70.0) % BUN (9-20) mg/dL Creatinine (0.8-1.5) mg/dL Calcium 8.1 L (8.4-10.2) mg/dL Albumin 3.4 L (3.9-5) g/dL 08/13/18 Range/Units 05:36 RBC (3.65-5.03) M/mm3 Hgb (11.8-15.2) gm/dl Hct (35.5-45.6) % RDW (13.2-15.2) % Plt Count (140-440) K/mm3 [place] % (Auto) (0.0-7.3) % Lymph # (1.2-5.4) K/mm3 Seg Neutrophils % (40.0-70.0) % BUN 34 H (9-20) mg/dL Creatinine 9.0 H (0.8-1.5) mg/dL Calcium 8.3 L (8.4-10.2) mg/dL Albumin (3.9-5) g/dL
[2018-08-13 16:14] VITALS: BP 120/81
[2018-08-13] MEDS ORDERED: SENOKOT PO SCH (22:00)
== END 2018-08-13 17:05 | disposition home or self-care (01) | DRG 707 ==
LOC: OR 06:22 → 3B-SURG 10:54
PROVIDERS: ADMIT Urology; ATTEND Urology
PROC: 0VT04ZZ Resection of Prostate, Percutaneous Endoscopic Approach (ICD-10-PCS; principal; 2018-08-11)
PROC: 8E0W4CZ Robotic Assisted Procedure of Trunk Region, Percutaneous Endoscopic Approach (ICD-10-PCS; 2018-08-11)
PROC: 30233N1 Transfusion of Nonautologous Red Blood Cells into Peripheral Vein, Percutaneous Approach (ICD-10-PCS; 2018-08-11)
PROC: 5A1D70Z Performance of Urinary Filtration, Intermittent, Less than 6 Hours Per Day (ICD-10-PCS; 2018-08-12)
DX: C61 Malignant neoplasm of prostate (principal); N18.6 End stage renal disease; I13.2 Hypertensive heart and chronic kidney disease with heart failure and with stage 5 chronic kidney disease, or end stage renal disease; I27.20 Pulmonary hypertension, unspecified; I50.9 Heart failure, unspecified; I48.91 Unspecified atrial fibrillation; M54.9 Dorsalgia, unspecified; F17.290 Nicotine dependence, other tobacco product, uncomplicated; F41.1 Generalized anxiety disorder; D69.6 Thrombocytopenia, unspecified; D63.1 Anemia in chronic kidney disease; J45.909 Unspecified asthma, uncomplicated; Z93.1 Gastrostomy status; E83.51 Hypocalcemia; E66.9 Obesity, unspecified; K21.9 Gastro-esophageal reflux disease without esophagitis; Z82.49 Family history of ischemic heart disease and other diseases of the circulatory system; Z68.23 Body mass index [BMI] 23.0-23.9, adult; Z88.5 Allergy status to narcotic agent; Z88.8 Allergy status to other drugs, medicaments and biological substances; Z91.09 Other allergy status, other than to drugs and biological substances; Z87.01 Personal history of pneumonia (recurrent)
CPT/HCPCS: 36415; 80048; 80053; 82040; 82310; 82728; 83550; 83735; 83970; 85007; 85025; 85610; 85730; 86850; 86900; 86901; 86920; 87116; 88309; 94760; A4217; J0610; J0690; J0885; J1100; J1170; J2405; J2704; J3010; J7030; P9016; Q9968

== ENCOUNTER 2019-04-04 13:34 | Emergency (ER) | payer MEDICARE ==
[2019-04-04 13:43] VITALS: BP 100/80
--- NOTE | 2019-04-04 14:24 | Emergency Department Report ---
Blank Doc - Documentation Documentation: Pt presents for states laceration on the bottom of the left foot states he got it on 04/02/19 states he believes it was a piece of glass states the skin of the foot has been peeling off PMHx CKD, pulmonary HTN, prostate CA no tobacco +marijuana non drinker
--- NOTE | 2019-04-04 14:55 | XRay Report ---
PROCEDURE: XR FOOT 3+V LT TECHNIQUE: 3 views left foot HISTORY: left foot wound, cut with glass COMPARISONS: None FINDINGS: Atherosclerotic vascular calcification. No radiopaque foreign body No acute fracture or malalignment Mild bunion formation. No calcaneal spur. IMPRESSION: No acute fracture or malalignment. No radiopaque foreign body. This document is electronically signed by Moustapha Ulrich MD., Apr 04 2019 02:52:49 PM ET
[2019-04-04 15:03] LABS: Basophils # (Auto) 0.1 K/mm3 (0.0-0.1); Basophils % (Auto) 1.3 % (0.0-1.8); Eosinophils # (Auto) 0.2 K/mm3 (0.0-0.4); Hematocrit 34.9 % (35.5-45.6); Hemoglobin 11.4 gm/dl (11.8-15.2); Lymphocytes % (Auto) 24.4 % (13.4-35.0); Mean Corpuscular HGB Conc 33 % (32-34); Mean Corpuscular Volume 97 fl (84-94); Monocytes # (Auto) 0.4 K/mm3 (0.0-0.8)
[2019-04-04 15:05] LABS: Platelet Count 92 K/mm3 (140-440); Red Cell Distribution Width 21.5 % (13.2-15.2)
[2019-04-04 15:17] LABS: Calcium 8.7 mg/dL (8.4-10.2)
--- NOTE | 2019-04-04 15:34 | Emergency Department Report ---
ED Lower Extremity HPI - General Chief Complaint: Extremity Injury, Lower Stated Complaint: SKIN PEELING OFF L FOOT Time Seen by Provider: 04/04/19 14:20 Source: patient Mode of arrival: Ambulatory Limitations: Physical Limitation - History of Present Illness Initial Comments: This is a 48-year-old -[place] male who presents to the emergency room with painful wound to left plantar foot. Past medical history of dialysis, hypertension, congestive heart failure, COPD, GERD, end-stage renal disease on peritoneal dialysis. Patient states he thought he stepped on a piece of glass. His removed something from plantar left foot in the scanner removed with the a few weeks ago. Patient states he brought ago when he was hospitalized 2 weeks ago and he was placed on antibiotics which he completed the wound never improved. MD Complaint: foot injury (left) Onset/Timin -: week(s) Injury: Foot: Left Type of Injury: unknown Place: home Severity: moderate Severity scale (0 -10): 8 Improves With: nothing Worsens With: weight bearing, palpation Context: walking Associated Symptoms: able to partially bear weight, ambulatory Treatments Prior to Arrival: NSAIDS - Related Data Home Medications Medication Instructions Recorded Confirmed Last Taken Albuterol Sulfate [Proair Hfa] 1 puff INHALATION PRN PRN 02/28/16 08/11/18 08/11/18 Ambrisentan [Letairis] 10 mg PO DAILY 06/01/17 08/11/18 08/11/18 Apixaban [Eliquis] 2.5 mg PO BID 06/01/17 08/11/18 07/25/18 Tizanidine HCl [Zanaflex] 2 mg PO TID PRN 06/01/17 08/11/18 08/09/18 Oxycodone HCl [oxyCONTIN ER] 15 mg PO TID 07/23/17 08/11/18 08/11/18 clonazePAM [KlonoPIN] 2 mg PO TID 07/23/17 08/11/18 08/10/18 Calcium Acetate [Phoslo] 7 tab PO TID 07/28/18 08/11/18 08/10/18 Prednisone [predniSONE 5 mg (6-Day 5 mg PO .TAPER 07/28/18 08/11/18 08/08/18 Pack, 21 Tabs)] Previous Rx's Medication Instructions Recorded Last Taken Type Pantoprazole [Protonix TAB] 40 mg PO QDAY 30 Days tablet 06/04/17 08/11/18 Rx Naloxegol Oxalate [Movantik] 25 mg PO DAILY #30 07/26/17 07/22/17 Rx traMADol [Ultram 50 MG tab] 50 mg PO Q6HR PRN #15 tablet 04/27/18 Unknown Rx Dicyclomine [Bentyl] 10 mg PO QID #12 capsule 10/30/18 Unknown Rx Clindamycin [Clindamycin CAP] 300 mg PO Q8H #21 cap 04/04/19 Unknown Rx Allergies Allergy/AdvReac Type Severity Reaction Status Date / Time CARMEL Inhibitors Allergy LIPS Verified 07/28/18 12:45 SWELLING morphine Allergy ITCHING, Verified 07/28/18 12:45 RASH tetracycline [Tetracycline] Allergy Rash Verified 07/28/18 12:45 valsartan [From Diovan] Allergy SWELLING Verified 07/28/18 12:45 OF THROAT PLASTIC TAPE Allergy PULLS SKIN Uncoded 07/28/18 12:45 OFF ED Review of Systems ROS: Stated complaint: SKIN PEELING OFF L FOOT Other details as noted in HPI Constitutional: denies: chills, fever Respiratory: denies: cough, shortness of breath, wheezing Cardiovascular: denies: chest pain, palpitations Gastrointestinal: denies: abdominal pain, nausea, diarrhea Skin: lesions (painful wound to plantar left foot). denies: rash Neurological: denies: headache, weakness, paresthesias Psychiatric: denies: anxiety, depression ED Past Medical Hx - Past Medical History Previous Medical History?: Yes Hx Hypertension: Yes (pulm. HTN) Hx Congestive Heart Failure: Yes Hx Diabetes: No Hx GERD: Yes Hx Renal Disease: Yes (Patient on Dialysis TTS) Hx of Cancer: Yes (prostate) Hx Sickle Cell Disease: No Hx Asthma: No Hx COPD: Yes Hx HIV: No Additional medical history: Patient on Dialysis - Surgical History Hx Cholecystectomy: Yes Additional Surgical History: MRSA chest - surgery to remove infection. Fistula left arm 2011. Ankle surgery. Removal part of stomach for bleeding ulcers. Parathyroidectomy. surgery for colon cancer. Neck surgery/discotomy jaimee roximately Jun 2017. Back surgery/discotomy approximately Aug 2016 - Social History Smoking Status: Never Smoker Substance Use Type: Marijuana - Medications Home Medications: Home Medications Medication Instructions Recorded Confirmed Last Taken Type Albuterol Sulfate [Proair Hfa] 1 puff INHALATION PRN PRN 02/28/16 08/11/18 08/11/18 History Ambrisentan [Letairis] 10 mg PO DAILY 06/01/17 08/11/18 08/11/18 History Apixaban [Eliquis] 2.5 mg PO BID 06/01/17 08/11/18 07/25/18 History Tizanidine HCl [Zanaflex] 2 mg PO TID PRN 06/01/17 08/11/18 08/09/18 History Pantoprazole [Protonix TAB] 40 mg PO QDAY 30 Days tablet 06/04/17 08/11/18 08/11/18 Rx Oxycodone HCl [oxyCONTIN ER] 15 mg PO TID 07/23/17 08/11/18 08/11/18 History clonazePAM [KlonoPIN] 2 mg PO TID 07/23/17 08/11/18 08/10/18 History Naloxegol Oxalate [Movantik] 25 mg PO DAILY #30 07/26/17 07/28/18 07/22/17 Rx traMADol [Ultram 50 MG tab] 50 mg PO Q6HR PRN #15 tablet 04/27/18 07/28/18 Unknown Rx Calcium Acetate [Phoslo] 7 tab PO TID 07/28/18 08/11/18 08/10/18 History Prednisone [predniSONE 5 mg (6-Day 5 mg PO .TAPER 07/28/18 08/11/18 08/08/18 History Pack, 21 Tabs)] Dicyclomine [Bentyl] 10 mg PO QID #12 capsule 10/30/18 Unknown Rx Clindamycin [Clindamycin CAP] 300 mg PO Q8H #21 cap 04/04/19 Unknown Rx ED Physical Exam - General Limitations: Physical Limitation General appearance: alert, in no apparent distress - Respiratory Respiratory exam: Present: normal lung sounds bilaterally. Absent: respiratory distress - Cardiovascular Cardiovascular Exam: Present: regular rate, normal rhythm. Absent: systolic murmur, diastolic murmur, rubs, gallop - GI/Abdominal GI/Abdominal exam: Present: soft, normal bowel sounds - Neurological Exam Neurological exam: Present: alert, oriented X3 - Psychiatric Psychiatric exam: Present: normal affect, normal mood - Skin Skin exam: Present: warm, dry, normal color, other (1 cm annular wound to left plantar foot, epidermis removed, edges approximated, tenderness, no drainage). Absent: intact, rash ED Course Vital Signs 04/04/19 13:40 Temperature 97.5 F L Pulse Rate 101 H Respiratory 18 Rate Blood Pressure 100/80 O2 Sat by Pulse 96 Oximetry ED Lower Extremity MDM - Lab Data Result diagrams: 04/04/19 14:51 04/04/19 14:51 Lab Results 04/04/19 04/04/19 Range/Units 14:51 14:51 WBC 4.0 L (4.5-11.0) K/mm3 RBC 3.60 L (3.65-5.03) M/mm3 Hgb 11.4 L (11.8-15.2) gm/dl Hct 34.9 L (35.5-45.6) % MCV 97 H (84-94) fl MCH 32 (28-32) pg MCHC 33 (32-34) % RDW 21.5 H (13.2-15.2) % Plt Count 92 L (140-440) K/mm3 Lymph % (Auto) 24.4 (13.4-35.0) % Caswell % (Auto) 10.0 H (0.0-7.3) % Eos % (Auto) 6.0 H (0.0-4.3) % Baso % (Auto) 1.3 (0.0-1.8) % Lymph # 1.0 L (1.2-5.4) K/mm3 Caswell # 0.4 (0.0-0.8) K/mm3 Eos # 0.2 (0.0-0.4) K/mm3 Baso # 0.1 (0.0-0.1) K/mm3 Seg Neutrophils % 58.3 (40.0-70.0) % Seg Neutrophils # 2.3 (1.8-7.7) K/mm3 Sodium 140 (137-145) mmol/L Potassium 4.1 (3.6-5.0) mmol/L Chloride 92.5 L (98-107) mmol/L Carbon Dioxide 26 (22-30) mmol/L Anion Gap 26 mmol/L BUN 57 H (9-20) mg/dL Creatinine 10.8 H (0.8-1.5) mg/dL Estimated GFR 6 ml/min BUN/Creatinine Ratio 5 % Glucose 98 (75-100) mg/dL Calcium 8.7 (8.4-10.2) mg/dL - Radiology Data Radiology results: report reviewed PROCEDURE: XR FOOT 3+V LT TECHNIQUE: 3 views left foot HISTORY: left foot wound, cut with glass COMPARISONS: None FINDINGS: Atherosclerotic vascular calcification. No radiopaque foreign body No acute fracture or malalignment Mild bunion formation. No calcaneal spur. IMPRESSION: No acute fracture or malalignment. No radiopaque foreign body. - Medical Decision Making Patient was examined by me. Vitals are normal and patient is in no acute distress. Obtained labs and x-ray of left foot. X-ray dictated by radiologist with no acute findings. Anemia and elevation of BUN and creatinine appropriate for dialysis patient. Although the labs are unremarkable. Wound irrigated with normal saline and a wet-to-dry dressing applied with petroleum gauze, 4 x 4 gauze with paper tape. Patient informed of results. Referral to podiatry and wound care for follow up. Start clindamycin. Plan discussed with patient to discharge home and treat outpatient. He agrees with ER plan. Patient discharged home in stable condition. Follow up with PCP in 2-3 days. Critical care attestation.: If time is entered above; I have spent that time in minutes in the direct care of this critically ill patient, excluding procedure time. ED Disposition Clinical Impression: Wound of left foot Disposition: DC-01 TO HOME OR SELFCARE Is pt being admited?: No Does the pt Need Aspirin: No Condition: Stable Instructions: Acute Wound Care (ED), Wound Healing and Your Diet (ED) Additional Instructions: Follow up with wound care and podiatry as discussed. Return to the emergency room if increased pain, redness, and foul smelling discharge. Prescriptions: Clindamycin [Clindamycin CAP] 300 mg PO Q8H #21 cap Referrals: RANJIT FAY MD [Primary Care Provider] - 3-5 Days [facility] [Outside] - 3-5 Days [facility] [Provider Group] - 3-5 Days Time of Disposition: 15:52
== END 2019-04-04 16:19 | disposition home or self-care (01) ==
LOC: ED 13:34
DX: S91.302A Unspecified open wound, left foot, initial encounter (principal); F12.10 Cannabis abuse, uncomplicated; I13.2 Hypertensive heart and chronic kidney disease with heart failure and with stage 5 chronic kidney disease, or end stage renal disease; N18.6 End stage renal disease; I50.9 Heart failure, unspecified; Z99.2 Dependence on renal dialysis; K21.9 Gastro-esophageal reflux disease without esophagitis; J44.9 Chronic obstructive pulmonary disease, unspecified; Z90.49 Acquired absence of other specified parts of digestive tract; W22.8XXA Striking against or struck by other objects, initial encounter; Y93.89 Activity, other specified; Y92.69 Other specified industrial and construction area as the place of occurrence of the external cause; Y99.8 Other external cause status
CPT/HCPCS: 36415; 80048; 85025; 99283

== ENCOUNTER 2019-06-17 18:36 | Emergency (ER) | payer MEDICARE ==
--- NOTE | 2019-06-17 19:08 | Emergency Department Report ---
Blank Doc - Documentation Documentation: This is a 49-year-old male that presents with bilateral feet MRSA. Stated was sent by water plumber that did cultures and came back for MRSA. This initial assessment/diagnostic orders/clinical plan/treatment(s) is/are subject to change based on patient's health status, clinical progression and re- assessment by fellow clinical providers in the ED. Further treatment and workup at subsequent clinical providers discretion. Patient/guardians urged not to elope from the ED as their condition may be serious if not clinically assessed and managed. Initial orders include: 1- Patient sent to main for further evaluation and treatment 2- lab
[2019-06-17 19:46] LABS: Eosinophils # (Auto) 0.1 K/mm3 (0.0-0.4); Eosinophils % (Auto) 3.6 % (0.0-4.3); Hematocrit 31.9 % (35.5-45.6); Hemoglobin 10.8 gm/dl (11.8-15.2); Lymphocytes # (Auto) 0.7 K/mm3 (1.2-5.4); Lymphocytes % (Auto) 17.5 % (13.4-35.0); Mean Corpuscular HGB Conc 34 % (32-34); Mean Corpuscular Volume 94 fl (84-94); Monocytes # (Auto) 0.4 K/mm3 (0.0-0.8); Monocytes % (Auto) 9.4 % (0.0-7.3); Platelet Count 116 K/mm3 (140-440); Red Blood Count 3.41 M/mm3 (3.65-5.03); Red Cell Distribution Width 19.8 % (13.2-15.2)
[2019-06-17 20:12] LABS: Calcium 9.1 mg/dL (8.4-10.2)
--- NOTE | 2019-06-17 20:58 | Emergency Department Report ---
- General Chief Complaint: Extremity Problem,Nontraumatic Stated Complaint: MRSA Time Seen by Provider: 06/17/19 19:06 Source: patient Mode of arrival: Wheelchair Limitations: No Limitations - History of Present Illness Initial Comments: Mr. Lopez is a 49 year old male with history of end-stage renal disease on dialysis and HTN who presents with positive MRSA wound culture. For the past several weeks his left foot has been managed by a consulting practice director. He has had a small ulcer. It is now well healed with antibiotic cream. However considering positive MRSA wound culture, consulting practice director recommended evaluation in the emergency department. No evidence of infection. The area is well-healed. No fever. No malaise. No known trauma to the area. No history of diabetes. -: Gradual, week(s) (3) Location: other (left foot) Extremity Location: Left: Foot Place: home Context: accidental Associated Symptoms: other (ulcer) - Related Data Home Medications Medication Instructions Recorded Confirmed Last Taken Albuterol Sulfate [Proair Hfa] 1 puff INHALATION PRN PRN 02/28/16 08/11/18 08/11/18 Ambrisentan [Letairis] 10 mg PO DAILY 06/01/17 08/11/18 08/11/18 Apixaban [Eliquis] 2.5 mg PO BID 06/01/17 08/11/18 07/25/18 Tizanidine HCl [Zanaflex] 2 mg PO TID PRN 06/01/17 08/11/18 08/09/18 Oxycodone HCl [oxyCONTIN ER] 15 mg PO TID 07/23/17 08/11/18 08/11/18 clonazePAM [KlonoPIN] 2 mg PO TID 07/23/17 08/11/18 08/10/18 Calcium Acetate [Phoslo] 7 tab PO TID 07/28/18 08/11/18 08/10/18 Prednisone [predniSONE 5 mg (6-Day 5 mg PO .TAPER 07/28/18 08/11/18 08/08/18 Pack, 21 Tabs)] Previous Rx's Medication Instructions Recorded Last Taken Type Pantoprazole [Protonix TAB] 40 mg PO QDAY 30 Days tablet 06/04/17 08/11/18 Rx Naloxegol Oxalate [Movantik] 25 mg PO DAILY #30 07/26/17 07/22/17 Rx traMADol [Ultram 50 MG tab] 50 mg PO Q6HR PRN #15 tablet 04/27/18 Unknown Rx Dicyclomine [Bentyl] 10 mg PO QID #12 capsule 10/30/18 Unknown Rx Clindamycin [Clindamycin CAP] 300 mg PO Q8H #21 cap 04/04/19 Unknown Rx Allergies Allergy/AdvReac Type Severity Reaction Status Date / Time CARMEL Inhibitors Allergy LIPS Verified 07/28/18 12:45 SWELLING morphine Allergy ITCHING, Verified 07/28/18 12:45 RASH tetracycline [Tetracycline] Allergy Rash Verified 07/28/18 12:45 valsartan [From Diovan] Allergy SWELLING Verified 07/28/18 12:45 OF THROAT PLASTIC TAPE Allergy PULLS SKIN Uncoded 07/28/18 12:45 OFF ED Review of Systems ROS: Stated complaint: MRSA Other details as noted in HPI Comment: All other systems reviewed and negative Constitutional: denies: fever, malaise Respiratory: denies: cough Cardiovascular: denies: chest pain ED Past Medical Hx - Past Medical History Previous Medical History?: Yes Hx Hypertension: Yes (pulm. HTN) Hx Congestive Heart Failure: Yes Hx Diabetes: No Hx GERD: Yes Hx Renal Disease: Yes (Patient on Dialysis TTS) Hx Sickle Cell Disease: No Hx Asthma: No Hx COPD: Yes Hx HIV: No Additional medical history: Patient on Dialysis - Surgical History Past Surgical History?: Yes Hx Cholecystectomy: Yes Additional Surgical History: MRSA chest - surgery to remove infection. Fistula left arm 2011. Ankle surgery. Removal part of stomach for bleeding ulcers. Parathyroidectomy. surgery for colon cancer. Neck surgery/discotomy approximately Jun 2017. Back surgery/discotomy approximately Aug 2016 - Social History Smoking Status: Never Smoker Substance Use Type: None - Medications Home Medications: Home Medications Medication Instructions Recorded Confirmed Last Taken Type Albuterol Sulfate [Proair Hfa] 1 puff INHALATION PRN PRN 02/28/16 08/11/18 08/11/18 History Ambrisentan [Letairis] 10 mg PO DAILY 06/01/17 08/11/18 08/11/18 History Apixaban [Eliquis] 2.5 mg PO BID 06/01/17 08/11/18 07/25/18 History Tizanidine HCl [Zanaflex] 2 mg PO TID PRN 06/01/17 08/11/18 08/09/18 History Pantoprazole [Protonix TAB] 40 mg PO QDAY 30 Days tablet 06/04/17 08/11/18 08/11/18 Rx Oxycodone HCl [oxyCONTIN ER] 15 mg PO TID 07/23/17 08/11/18 08/11/18 History clonazePAM [KlonoPIN] 2 mg PO TID 07/23/17 08/11/18 08/10/18 History Naloxegol Oxalate [Movantik] 25 mg PO DAILY #30 07/26/17 07/28/18 07/22/17 Rx traMADol [Ultram 50 MG tab] 50 mg PO Q6HR PRN #15 tablet 04/27/18 07/28/18 Unknown Rx Calcium Acetate [Phoslo] 7 tab PO TID 07/28/18 08/11/18 08/10/18 History Prednisone [predniSONE 5 mg (6-Day 5 mg PO .TAPER 07/28/18 08/11/18 08/08/18 History Pack, 21 Tabs)] Dicyclomine [Bentyl] 10 mg PO QID #12 capsule 10/30/18 Unknown Rx Clindamycin [Clindamycin CAP] 300 mg PO Q8H #21 cap 04/04/19 Unknown Rx ED Physical Exam - General Limitations: No Limitations General appearance: alert, in no apparent distress - Head Head exam: Present: atraumatic, normocephalic - Eye Eye exam: Present: normal appearance - ENT ENT exam: Present: mucous membranes moist - Neck Neck exam: Present: normal inspection - Respiratory Respiratory exam: Absent: respiratory distress - Extremities Exam Extremities exam: Present: other (bilateral feet: No ulcers no laceration no signs of cellulitis) - Back Exam Back exam: Present: normal inspection - Neurological Exam Neurological exam: Present: alert, oriented X3 - Psychiatric Psychiatric exam: Present: normal affect, normal mood - Skin Skin exam: Present: warm, dry, intact, normal color. Absent: rash ED Course Vital Signs 06/17/19 19:07 Temperature 98.3 F Pulse Rate 111 H Respiratory 18 Rate Blood Pressure 135/88 O2 Sat by Pulse 100 Oximetry ED Medical Decision Making - Lab Data Result diagrams: 06/17/19 19:28 06/17/19 19:28 - Medical Decision Making Positive MRSA wound culture, no evidence of cellulitis or abscess. No indication of infection. Intact skin on both feet. According to electronic medical record he's had previous positive MRSA infection. Given reassurance and discharged home. Critical care attestation.: If time is entered above; I have spent that time in minutes in the direct care of this critically ill patient, excluding procedure time. ED Disposition Clinical Impression: MRSA (methicillin resistant staph aureus) culture positive Disposition: TO HOME OR SELFCARE Is pt being admited?: No Does the pt Need Aspirin: No Condition: Stable
[2019-06-17 21:36] VITALS: BP 135/89
== END 2019-06-17 21:26 | disposition home or self-care (01) ==
LOC: ED 18:36
DX: A49.02 Methicillin resistant Staphylococcus aureus infection, unspecified site (principal); J44.9 Chronic obstructive pulmonary disease, unspecified; K21.9 Gastro-esophageal reflux disease without esophagitis; I13.2 Hypertensive heart and chronic kidney disease with heart failure and with stage 5 chronic kidney disease, or end stage renal disease; I50.9 Heart failure, unspecified; N18.6 End stage renal disease; Z99.2 Dependence on renal dialysis; Z90.49 Acquired absence of other specified parts of digestive tract; Z98.890 Other specified postprocedural states; Z79.899 Other long term (current) drug therapy; Z88.5 Allergy status to narcotic agent; Z88.8 Allergy status to other drugs, medicaments and biological substances; Z91.048 Other nonmedicinal substance allergy status
CPT/HCPCS: 36415; 80053; 85025